=== PATIENT | female | born 1995 | race Caucasian/White ===

== ENCOUNTER → 2020-02-03 14:16 | Outpatient (BNVA) | payer OTHER, SELFPAY | PROVIDERS: Family Provider Family Medicine; Visit Provider Obstetrics & Gynecology | DX: Z32.01 Encounter for pregnancy test, result positive (principal) | CPT/HCPCS: 81025 ==

== ENCOUNTER → 2020-02-22 13:30 | Outpatient (BNVA) | payer OTHER, SELFPAY | PROVIDERS: Family Provider Family Medicine; Visit Provider Obstetrics & Gynecology | DX: Z12.4 Encounter for screening for malignant neoplasm of cervix (principal) | CPT/HCPCS: 88175 ==

== ENCOUNTER → 2020-05-02 11:55 | Outpatient (BNVA) | payer OTHER, SELFPAY | PROVIDERS: Family Provider Family Medicine; Visit Provider Obstetrics & Gynecology | DX: N97.9 Female infertility, unspecified (principal) | CPT/HCPCS: 84144 ==

== ENCOUNTER 2020-05-03 07:40 | Outpatient (CLI) | payer OTHER, SELFPAY ==
--- NOTE | 2020-05-03 07:53 | US_ITS ---
WS: [id number] RIGHT UPPER QUADRANT ULTRASOUND HISTORY: RUQ ABDOMINAL PAIN COMPARISON: 03/02/2017 Liver: 16.3 cm in length. Moderately enlarged liver. Diffuse coarsened echotexture throughout the mary er. No mass or bile duct dilatation. Gallbladder: Normally distended gallbladder with no stones or wall thickening. CBD: 0.3 cm Pancreas: Tail of the pancreas is obscured by bowel gas. Remaining pancreas is negative. Right kidney: 11.3 cm in length. Normal size and echogenicity. No hydronephrosis or mass. Aorta and IVC: Unremarkable abdominal aorta and IVC. No ascites. There is mild diffuse circumferential thickening and low echogenicity involving the antru m or duodenum. US/US gall bladder [id number] IMPRESSION: 1. Normal gallbladder. 2. Mild edematous thickening of the duodenum or antrum. Suggest mild gastritis /duodenitis. 3. Moderate hepatomegaly and hepatic steatosis. Hepatic findings have progress ed since 03/02/2017. Essentially normal appearing liver on 03/02/2017.
== END 2020-05-03 07:41 | disposition home or self-care (01) ==
LOC: RAD 07:49
PROVIDERS: PCP Family Medicine; Visit Provider Family Medicine
DX: R10.11 Right upper quadrant pain (principal); R16.0 Hepatomegaly, not elsewhere classified; K76.0 Fatty (change of) liver, not elsewhere classified
CPT/HCPCS: 76705

== ENCOUNTER → 2020-05-07 08:01 | Outpatient (BNVA) | payer OTHER, SELFPAY | PROVIDERS: PCP Family Medicine; Visit Provider Obstetrics & Gynecology | DX: N97.9 Female infertility, unspecified (principal) | CPT/HCPCS: 84144 ==

== ENCOUNTER → 2020-05-31 11:50 | Outpatient (BNVA) | payer OTHER, SELFPAY | PROVIDERS: PCP Family Medicine; Visit Provider Obstetrics & Gynecology | DX: N97.9 Female infertility, unspecified (principal) | CPT/HCPCS: 84144 ==

== ENCOUNTER → 2020-06-04 16:45 | Outpatient (BNVA) | payer OTHER, SELFPAY | PROVIDERS: PCP Family Medicine; Visit Provider Obstetrics & Gynecology | DX: Z31.9 Encounter for procreative management, unspecified (principal) | CPT/HCPCS: 84144 ==

== ENCOUNTER → 2020-07-30 13:33 | Outpatient (BNVA) | payer OTHER, SELFPAY | PROVIDERS: PCP Family Medicine; Visit Provider Obstetrics & Gynecology | DX: Z34.90 Encounter for supervision of normal pregnancy, unspecified, unspecified trimester | CPT/HCPCS: 84144; 84702 ==

== ENCOUNTER → 2020-09-03 15:07 | Outpatient (BNVA) | payer OTHER, SELFPAY | PROVIDERS: PCP Family Medicine; Visit Provider Obstetrics & Gynecology | DX: R79.89 Other specified abnormal findings of blood chemistry (principal) | CPT/HCPCS: 84144 ==

== ENCOUNTER → 2020-09-07 14:42 | Outpatient (BNVA) | payer OTHER, SELFPAY | PROVIDERS: PCP Family Medicine; Visit Provider Obstetrics & Gynecology | DX: R79.89 Other specified abnormal findings of blood chemistry (principal) | CPT/HCPCS: 84144 ==

== ENCOUNTER 2020-09-20 10:55 | Outpatient (CLI) | payer OTHER, SELFPAY ==
--- NOTE | 2020-09-20 11:00 | FL_ITS ---
WS: [id number] HYSTEROSALPINGOGRAM The cervical opening was cannulated by the jewelry mechanic. Then under fluoroscopic guidance, water-solu ble contrast was injected in a retrograde fashion. CLINICAL INFORMATION: R79.89 - Other specified abnormal findings of blood chemistry COMPARISON: None. FINDINGS: The uterus fills normally, with no evidence of contour abnormality, filling defect, septum, stricture , mass, or bicornuate configuration. The bilateral uterine tubes are normal and patent with normal ra pid spillage of contrast into the peritoneum. FLUOROSCOPY TIME: .2 minutes. FL/FL hysterosalpingography [id number] IMPRESSION: Normal hysterosalpingogram.
[2020-09-20] MEDS: iohexol 300 mg/mL 50 mL Btl VAGINAL (11:15)
--- NOTE | 2020-09-20 13:12 | PM.ACPR ---
Procedure/Consent Procedure Narrative: Radiologic procedure Date of procedure: 09/20/2020 Date of dictation: 09/20/2020 Procedural diagnosis: Infertility Procedure done: Placement of hysterosalpingogram catheter Physician: Dr. Mary Lou Apodaca Anesthesia: None Indication: To assess patency of fallopian tubes Complications: None, patient tolerated the procedure well PROCEDURE: The procedure was explained to the patient and verbal consent provided. Sterile speculum was placed in the vagina and the cervix was prepped with Betadine. The cervix was grasped with a single-tooth tenaculum. Using Omnipaque dye, the HSG catheter was primed. The catheter was inserted into the cervix and the speculum was removed. Fluoroscopy was performed by the radiologist. Omnipaque dye was injected into the endometrial cavity with normal filling of the cavity. Bilateral tubes appeared normal caliber with immediate spill of dye bilaterally. The tenaculum and catheter were removed. Patient tolerated the procedure well other than feeling a little lightheaded. Please see separate radiologist report for final interpretation. Followup appointment: She is to followup at her next scheduled appointment
== END 2020-09-20 10:56 | disposition home or self-care (01) ==
LOC: RAD 10:59
PROVIDERS: PCP Family Medicine; Visit Provider Obstetrics & Gynecology
DX: R79.89 Other specified abnormal findings of blood chemistry (principal)
CPT/HCPCS: 74740

== ENCOUNTER → 2020-10-02 13:00 | Outpatient (BNVA) | payer OTHER, SELFPAY | PROVIDERS: PCP Family Medicine; Visit Provider Obstetrics & Gynecology | DX: R79.89 Other specified abnormal findings of blood chemistry (principal) | CPT/HCPCS: 84144 ==

== ENCOUNTER → 2020-11-01 13:07 | Outpatient (BNVA) | payer OTHER, SELFPAY | PROVIDERS: PCP Family Medicine; Visit Provider Obstetrics & Gynecology | DX: N97.0 Female infertility associated with anovulation (principal) | CPT/HCPCS: 83520; 84144 ==

== ENCOUNTER → 2020-11-12 11:42 | Outpatient (BNVA) | payer OTHER, SELFPAY | PROVIDERS: PCP Family Medicine; Visit Provider Obstetrics & Gynecology | DX: Z32.01 Encounter for pregnancy test, result positive (principal); R79.89 Other specified abnormal findings of blood chemistry | CPT/HCPCS: 84702 ==

== ENCOUNTER → 2020-11-19 12:00 | Outpatient (BNVA) | payer OTHER, SELFPAY | PROVIDERS: PCP Family Medicine; Visit Provider Obstetrics & Gynecology | DX: Z34.90 Encounter for supervision of normal pregnancy, unspecified, unspecified trimester (principal) | CPT/HCPCS: 84702 ==

== ENCOUNTER 2020-12-06 09:27 | Outpatient (CLI) | payer OTHER, SELFPAY ==
--- NOTE | 2020-12-06 09:49 | US_ITS ---
WS: [id number] EARLY OBSTETRICAL ULTRASOUND (<14 WEEKS). HISTORY: NORMAL COMPARISON: None available. Single intrauterine gestational sac is identified. Cardiac activity at 164 BPM. Kimmell-rump length critsobal sures 1.4 cm which corresponds to a gestation of 7w4d. Normal-appearing yolk sac and amnion demonstra juma. No subchorionic hemorrhage. There is a small amount of free fluid in the cul-de-sac. The cervix is closed measuring 3.4 cm in [facility]. Corpus luteum cyst RIGHT ovary measures 2.3 x 2.0 x 2.3 cm. Normal vascularity within the ovary. LEFT ovary is not identified. US/US OB <=14 wk fetus w transvag IMPRESSION: 1. Single intrauterine gestation of 7 weeks 4 days with an EDC of 07/21/2021. 2. Normal cardiac activity. 3. RIGHT ovarian corpus luteum cyst.
== END 2020-12-06 09:28 | disposition home or self-care (01) ==
LOC: RAD 09:34
PROVIDERS: PCP Family Medicine; Visit Provider Family Medicine
DX: N83.11 Corpus luteum cyst of right ovary (principal); Z34.81 Encounter for supervision of other normal pregnancy, first trimester; Z3A.01 Less than 8 weeks gestation of pregnancy
CPT/HCPCS: 76801; 76817

== ENCOUNTER 2021-03-12 07:46 | Outpatient (CLI) | payer OTHER, SELFPAY ==
--- NOTE | 2021-03-12 07:56 | US_ITS ---
WS: [id number] OBSTETRICAL ULTRASOUND COMPLETE HISTORY: ANATOMY COMPARISON: 12/06/2020 Single intrauterine gestation in Cephalic presentation. Cervix is Closed and normal length. Cervical length is 4.7 cm. Normal amount of amniotic fluid surrounds the fetus. Placenta: Anterior, no previa or abruption. Placenta grade 1 Heart: 136 BPM. Limited four-chamber view. Outflow tracts are difficult due to body habitus and posit ion of the fetus. No abnormality noted. Anatomy: Intracranial structures and spine are normal. kidneys, stomach and urinary bladd er are unremarkable. Abdominal wall, three-vessel cord and cord insertion site are normal. 4 extremities are present. profile: Unremarkable. Gender: Female. measurements: BPD = 4.9 cm = 20w6d HC = 19.1 cm = 21w2d AC = 16.5 cm = 21w4d FL = 3.7 cm = 21w6d EFW: 440 g. Biometry is internally concordant. AGA by ultrasound: 21w3d JASON by ultrasound: 07/20/2021 US/US OB >= 14 weeks fetus [id number] IMPRESSION: 1. Single intrauterine gestation of 21w3d with an JASON of 07/20/2021. Appropria te growth since the prior ultrasound. 2. Limited evaluation of the heart and outflow tracts due to maternal mikaela dy habitus and position. The remaining anatomy is negative.
== END 2021-03-12 07:47 | disposition home or self-care (01) ==
PROVIDERS: PCP Family Medicine; Visit Provider Family Medicine
DX: Z36.89 Encounter for other specified antenatal screening (principal); Z3A.21 21 weeks gestation of pregnancy
CPT/HCPCS: 76805

== ENCOUNTER 2021-04-13 11:21 | Outpatient (CLI) | payer OTHER, SELFPAY ==
--- NOTE | 2021-04-13 | USR_ITS ---
PROCEDURE INFORMATION: Exam: US , Limited Exam date and time: 04/13/2021 12:00 AM Age: 26 years old Clinical indication: Screening exam; Routine US, uterus; Additional info: heart outflow tract TECHNIQUE: Imaging protocol: Real-time ultrasound of the maternal uterus with image documentation. Exam focused on the clinical indication. COMPARISON: US OB >= 14 weeks fetus [id number] 03/12/2021 8:17 AM FINDINGS: Gestation: Intrauterine gestation in cephalic presentation. heart rate: heart rate 150 bpm. ANATOMY: heart four-chamber view, heart size and position: Four-chamber views of the heart are suboptimal. Both the right ventricular outflow tract and the left ventricular outflow tract are displayed and appear normal. This was ordered as limited exam and detailed anatomic survey was not performed. MATERNAL: Cervix: Maternal cervix measures 4.7 cm in length and is closed. US/US OB limited [id number] IMPRESSION: Normal appearance of the right and left ventricular outflow tracts.
== END 2021-04-13 11:22 | disposition home or self-care (01) ==
PROVIDERS: PCP Family Medicine; Visit Provider Family Medicine
DX: Z34.00 Encounter for supervision of normal first pregnancy, unspecified trimester (principal)
CPT/HCPCS: 76815

== ENCOUNTER 2021-07-01 08:07 | Outpatient (CLI) | payer OTHER, SELFPAY ==
--- NOTE | 2021-07-01 08:15 | US_ITS ---
WS: [id number] LIMITED OBSTETRICAL ULTRASOUND HISTORY: SUPERVISION-EFW/BLANCA COMPARISON: 04/13/2021, 12/06/2020 Presentation: Vertex. Cervix: Not visualized. Placenta: Anterior, no previa or abruption. Grade: 1 HEART: FHR of 136 BPM. measurements: BPD = 9.3 cm = 37w4d HC = 32.8 cm = 37w1d AC = 36.0 cm = 39w6d FL = 7.3 cm = 37w1d BLANCA: 14.2 cm EFW: 3567 g; greater than the 90th %. AGA by ultrasound: 38w0d JASON by ultrasound: 07/15/2021 US/US OB limited [id number] IMPRESSION: 1. Single intrauterine gestation of 38 weeks 0 days with an EDC of 07/15/2021. Appropriate growth since the first trimester ultrasound. 2. Estimated weight greater than 90th percentile for age. 3. Abdominal circumference measuring nearly 3 weeks greater than the remaining biometry. 4. Normal amniotic fluid index of 14.2 cm.
== END 2021-07-01 08:08 | disposition home or self-care (01) ==
LOC: RAD 08:11
PROVIDERS: PCP Family Medicine; Visit Provider Family Medicine
DX: Z34.83 Encounter for supervision of other normal pregnancy, third trimester; Z3A.38 38 weeks gestation of pregnancy
CPT/HCPCS: 76815

== ENCOUNTER 2021-07-01 08:45 | Outpatient (CLI) | payer OTHER, SELFPAY ==
[2021-07-01 09:08] VITALS: BP 117/66; PULSE 80
[2021-07-01 09:12] VITALS: RESP 17; TEMP 36.8
[2021-07-01 09:29] VITALS: BP 117/71; PULSE 80
== END 2021-07-01 09:50 | disposition home or self-care (01) ==
LOC: OPOB 08:55 → OBGYN 08:57
PROVIDERS: PCP Family Medicine; Visit Provider Family Medicine
DX: O16.9 Unspecified maternal hypertension, unspecified trimester (principal)
CPT/HCPCS: 59025; 99211

== ENCOUNTER 2021-07-04 12:24 | Outpatient (CLI) | payer OTHER, SELFPAY ==
[2021-07-04 12:24] VITALS: BMI 41.6
[2021-07-04 12:31] VITALS: RESP 16
[2021-07-04 12:32] VITALS: TEMP 36.1
[2021-07-04 12:33] VITALS: BP 136/79; PULSE 75
[2021-07-04 12:49] VITALS: BP 133/77; PULSE 73
== END 2021-07-04 13:00 | disposition home or self-care (01) ==
LOC: OPOB 12:29 → OBGYN 12:30
PROVIDERS: PCP Family Medicine; Visit Provider Family Medicine
DX: O16.9 Unspecified maternal hypertension, unspecified trimester (principal)
CPT/HCPCS: 59025

== ENCOUNTER 2021-07-08 11:25 | Outpatient (CLI) | payer OTHER, SELFPAY ==
--- NOTE | 2021-07-08 11:36 | US_ITS ---
WS: [id number] ULTRASOUND OB LIMITED TECHNIQUE: Limited ultrasound examination of the fetus. CLINICAL INFORMATION: SUPERVISION NORMAL COMPARISON: July 01, 2021 FINDINGS: Closed cervix measures 3.1 cm Single interuterine gestation. presentation is vertex Placental location is anterior. Placenta grade: 0. heart rate 153 BPM. BLANCA 11.8 cm US/[place] [id number] IMPRESSION: 1. Normal cervix measuring 3.1 cm. 2. presentation is vertex with anterior placenta. 3. BLANCA 11.8 cm greater than the fifth and less than the median
== END 2021-07-08 11:26 | disposition home or self-care (01) ==
LOC: RAD 11:27
PROVIDERS: PCP Family Medicine; Visit Provider Family Medicine
DX: Z34.00 Encounter for supervision of normal first pregnancy, unspecified trimester (principal)
CPT/HCPCS: 76816

== ENCOUNTER 2021-07-08 12:40 | Outpatient (CLI) | payer OTHER, SELFPAY ==
[2021-07-08] VITALS (8 sets, daily range): BP systolic 124–137; BP diastolic 60–84; PULSE 73–99; RESP 17; BMI 41.8
== END 2021-07-08 13:55 | disposition home or self-care (01) ==
LOC: OPOB 12:43 → OBGYN 12:43
PROVIDERS: PCP Family Medicine; Visit Provider Family Medicine
DX: O16.9 Unspecified maternal hypertension, unspecified trimester (principal)
CPT/HCPCS: 59025

== ENCOUNTER 2021-07-12 19:03 | Inpatient (IN) | payer OTHER, SELFPAY ==
[2021-07-12] VITALS (28 sets, daily range): BP systolic 124–176; BP diastolic 64–90; PULSE 66–103; RESP 16; O2SAT 96–99; BMI 41.6
--- NOTE | 2021-07-12 20:01 | P.HP_ITS ---
Providers/Chief Complaint Primary Care Provider: Mark Lozano MD Chief Complaint: INDUCTION OF LABOR History of Present Illness Eileen Bedolla is a 26 year old at 39.0 weeks gestation by LMP consistent with 7-week ultrasound. Her is complicated by obesity, difficulty becoming on Clomid for induction of ovulation, IBS, syncopal episode at 9 weeks gestation, chronic hypertension on labetalol 50 mg twice a day, elevated 1 hour GTT with normal 3-hour GTT. The patient presents to labor and delivery for a scheduled induction of labor at 39 weeks gestation secondary to chronic hypertension. The patient has been having blood pressures in the 130s to 150s and for this reason she has been brought in for induction of labor. The patient denies any headaches, chest pains, shortness of breath, nausea, flashes of light, abdominal pain, diarrhea, constipation, fevers, dysuria, leakage of fluid, vaginal bleeding. Her Covid test was negative on 07/09/2021. Medications/Allergies Home Medications Medication Instructions Recorded Confirmed Last Taken Type Bacillus coagulans 800 million cell PO 02/03/20 10/16/20 Unknown History cell tablet cetirizine 10 mg capsule 10 mg PO DAILY PRN 02/22/20 10/16/20 Unknown History Allergies Allergy/AdvReac Type Severity Reaction Status Date / Time No Known Allergies Allergy Verified 11/19/20 12:07 PFSH Acute PFSH: Medical History Anxiety Takes hydroxyzine as needed. Managed by primary care provider Dr. Lozano. H/O cardiac arrhythmia Reports having PVCs and during this time had elevated blood pressure and was placed on metoprolol. This was being managed by primary care provider at that time Dr. Romero. She states that since 2017 in 2018 since anxiety and stress improved she has not had these symptoms. She is asymptomatic at this time Irritable bowel Diagnosed in 2015 with a colonoscopy--anxiety and stress make it worse. She is on probiotics for this. Started desipramine by her primary care provider in May 2020 as well No pertinent past medical history Denies diabetes, asthma, hypertension, seizures, DVT/PE PCP: Dr. Lozano Surgical History S/P appendectomy 2011--laparoscopic procedure S/P tonsillectomy and adenoidectomy As a child Family History Family/Other Colon cancer maternal great grandmother Mother Thyroid condition Heart disease Diabetes Grandmother Heart disease maternal and paternal Diabetes paternal Grandfather Diabetes maternal Denies family history of Ovarian cancer Hyperlipidemia Breast cancer Hypertension Uterine cancer Stroke Social History Smoking and tobacco status: never smoked Alcohol intake: never Female Reproductive History: : 1 Vitals/I&O/Wt Last Vital Signs Pulse 87 07/12/21 19:58 Resp 16 07/12/21 19:52 BP 154/81 07/12/21 19:37 Pulse Ox 98 07/12/21 19:58 Weight last 48 hrs Weight 274 lb Physical Exam Narrative: EXAM NARRATIVE: General: Alert and oriented x3 Eyes: Pupils equal round and reactive to light and accommodation Mouth: Mucous membranes moist, pharynx non-erythematous Cardiac: Regular rate and rhythm without murmurs Lungs: Clear to auscultation bilaterally without wheezes, crackles or rhonchi Abdomen: Soft, non-tender, fundus consistent with gestational age Extremities: +1 pitting edema in the bilateral lower extremities A&P Assessment and plan (1) Intrauterine : Status: Acute (2) Chronic hypertension: Status: Acute (3) Obesity: Status: Acute Additional A&P Information The patient is doing well at this time. Her blood pressures are in the 150s. She did not take her evening dose of labetalol. We will give her a 50 mg dose by mouth to help control her blood pressures. We will continue with the antihypertensive protocol. We will get preeclamptic labs as well as a 12-hour urine protein. Currently heart tones are in the mid 140s with moderate variability and good accelerations with a category 1 tracing. The patient is not having any significant contractions. We will start the patient on Cytotec and proceed from there. She may have a laboring epidural when she gets to 3 cm if desired. Stadol for pain control prior to this. The patient is GBS negative. All questions were answered. The patient and her are in agreement with the current plan of care. Attestations Medical Necessity Statement*: The patient will be here for greater than 2 midnights due to routine intrapartum and management of labor and delivery. Coding Level of Care Code Acute Student Teaching Coordinator for Chg Fwd Diagnoses Intrauterine Z34.90 Chronic hypertension I10 Obesity E66.9
[2021-07-12 20:34] LABS: Add Urine Microscopic? NO; Charge for UA Resulting for Rev
[2021-07-12 20:41] LABS: Basophils % 0.4 %; Eosinophils # 0.1 10^3/uL (0.0-0.8); Eosinophils % 1.2 %; Hematocrit 32.4 % (37.0-47.0); Hemoglobin 11.1 g/dL (11.5-15.3); Lymphocytes # 2.9 10^3/uL (0.8-4.8); Lymphocytes % 29.4 %; Mean Corpuscular HGB Conc 34.3 g/dL (30.0-36.0); Mean Corpuscular Hemoglobin 29.7 pg (28.0-34.0); Mean Corpuscular Volume 86.6 fl (81-99); Mean Platelet Volume 10.5 fL (7.4-10.4); Monocytes # 0.8 10^3/uL (0.2-0.9); Monocytes % 8.3 %; Neutrophils # 5.82 10^3/uL (1.8-7.7); Neutrophils % 59.6 %; Nucleated Red Blood Cells % 0 %; Platelet Count 296 10^3/cmm (130-400); Red Blood Count 3.74 10^6/uL (4.1-5.3); Red Cell Distribution Width 13.4 % (12.1-15.1); White Blood Count 9.8 10^3/uL (4.0-10.0)
[2021-07-12] MEDS: labetalol 200 mg Tablet 50 MG PO (20:44)
[2021-07-12 20:50] LABS: Bilirubin Urine Neg (Negative); Blood Urine Neg (Negative); Glucose Urine UA Norm (Normal); Ketones Urine Negative (Negative); Leukocyte Esterase Urine Negative (Negative); Nitrate Urine Negative (Negative); Protein Urine Neg (Negative); Urine Appearance Clear (CLEAR); Urine Color Yellow (Yellow); Urobilinogen Urine Norm (Negative); pH Urine 7 (5-7)
[2021-07-12 21:03] LABS: Alanine Aminotransferase 12 U/L (0-33); Albumin Level 3.5 g/dL (3.5-5.2); Alkaline Phosphatase 118 IU/L (35-105); Anion Gap 19.7 (5-19); Aspartate Amino Transferase 15 U/L (0-32); Blood Urea Nitrogen 8 mg/dL (6-20); Calcium 8.7 mg/dL (8.5-10.5); Carbon Dioxide 16 mmol/L (22-29); Chloride 105 mmol/L (98-107); Globulin 2.8 g/dL (1.3-4.6); Glomerular Filtration Rate 102.8 mL/min (90-130); Glucose 126 mg/dL (65-115); Osmolality Calculated 284 mOsm/kg (285-295); Potassium 3.7 mmol/L (3.5-5.1); Sodium 137 mmol/L (136-145); Total Bilirubin 0.2 mg/dL (0.15-1.2); Total Protein 6.3 g/dL (6.6-8.7); Uric Acid 4.6 mg/dL (2.4-5.7)
[2021-07-12 21:10] LABS: UPRO/UCREAT Ratio 0.11 mg/mg CR; Urine Creatinine 66 mg/dL (28-217); Urine Protein Random 7 mg/dL
[2021-07-12] MEDS: miSOPROStol 100 mcg tablet 25 MCG VAGINAL (21:17)
[2021-07-12] MEDS: labetalol 5 mg/mL SDV 20mL 20 MG IVP (21:42)
[2021-07-13] VITALS (101 sets, daily range): BP systolic 113–181; BP diastolic 56–98; PULSE 59–118; RESP 18; TEMP 36.1–37.3; O2SAT 96–99
[2021-07-13] MEDS: miSOPROStol 100 mcg tablet 25 MCG VAGINAL ×2 (01:20→05:30)
[2021-07-13] MEDS: dextrose 5%-lactated ringers 1,000 ML 125 ML IV (04:56)
[2021-07-13 09:18] LABS: Total Volume, Urine 1000 mL
[2021-07-13] MEDS: oxytocin 30 UNIT/500 ML BAG IV (10:13)
--- NOTE | 2021-07-13 10:17 | P.PN_ITS ---
Subjective Subjective: Interval history: The patient is feeling well today. She is having some pain with contractions, however is able to talk through them. The patient has been having contractions every 2 to 5 minutes. Her cervix is dilated to 2 cm and 50% effaced. Blood pressures overnight were relatively well controlled with a few sporadic elevated blood pressures. She denies any chest pains or shortness of breath overnight. Vitals/I&O/Wt Last Vital Signs Temp 97.0 F L 07/13/21 08:32 Pulse 91 07/13/21 10:13 Resp 16 07/12/21 19:52 BP 148/88 07/13/21 10:13 Pulse Ox 98 07/12/21 20:03 07/12/21 07/13/21 07/13/21 22:59 06:59 14:59 Intake Total 320.833 / 320.833 Output Total 800 / 800 475 / 475 Balance -800 / -800 -154.167 / -154.167 Weight last 48 hrs Weight 274 lb Physical Exam Narrative: EXAM NARRATIVE: General: Alert and oriented x3 Cardiac: Regular rate and rhythm without murmurs Lungs: Clear to auscultation bilaterally without wheezes, crackles or rhonchi Abdomen: Soft, non-tender, fundus consistent with gestational age Extremities: +1 pitting edema in the bilateral lower extremities Data : 07/12/21 19:45 07/12/21 19:45 A&P Assessment and plan (1) Intrauterine : Status: Acute (2) Chronic hypertension: Status: Acute (3) Obesity: Status: Acute (4) Anxiety: Status: Acute Additional A&P Information The patient is doing well at this time. We will proceed with IV Pitocin for augmentation of labor. 24-hour urine protein levels are below range for preeclampsia. heart tones are in the mid 140s with moderate variability and good accelerations with a category 1 tracing. All questions were answered. The patient may have a laboring epidural when she gets to 3 to 4 cm. The patient and her are in agreement with current plan of care. Attestations Medical Necessity Statement*: The patient will be here for greater than 2 midnights due to routine intrapartum and management of labor and delivery. Coding Level of Care Code Acute Stretcher Leveler Operator Helper for Belgica Rahman Diagnoses Intrauterine Z34.90 Chronic hypertension I10 Obesity E66.9 Anxiety F41.9
[2021-07-13] MEDS: lactated ringers 1,000 ML 125 ML IV ×2 (12:24→15:00)
[2021-07-13] MEDS: butorphanol 2 mg/mL SDV 1 mL 1 MG IVP ×2 (12:41→23:51)
[2021-07-13] MEDS: labetalol 5 mg/mL SDV 20mL 20 MG IVP ×2 (13:32→14:44)
--- NOTE | 2021-07-13 15:00 | P.ANESASSM_ITS ---
Pre-Anesthetic Assessment Pre-Anesthetic Assessment: Height/Weight: Height 5 ft 8 in Weight 124.284 kg Temp Pulse Resp BP Pulse Ox 97.2 F L 63 16 131/71 98 07/13/21 12:06 07/13/21 15:25 07/12/21 19:52 07/13/21 15:18 07/13/21 15:25 Preop Diagnosis: IUP Was Beta Marysol taken within 24 hours: Yes Was Clonidine taken within 24 hours: N/A Social: Social History: No alcohol and No tobacco Exam: Pre-Anes Outpt Exam: alert, oriented x 3, clear to auscultation bilaterally and regular rate & rhythm Airway: Submandibular: WNL Cervical ROM: WNL MP: 1 History/ROS: No significant history except as noted Pulmonary: Pulmonary: None reported CV/HEM: CV/HEM: HTN : : None reported Hepatic: Hepatic: None reported GI: GI: None reported Metabolic: Metabolic: Morbid obesity Musc/skel: Musc/skel: None reported Neuropsych: Neuropsych: Anxiety Anesthetic Plan: ASA status: 2 Anesthesia: Anesthesia Evaluation Risk of > 500 ml blood loss (7ml/kg in children): No Meds/Allergies Current Medications: Current Medications Generic Name Dose Route Start Last Admin Trade Name Freq PRN Reason Stop Dose Admin Butorphanol Tartra te 1 mg 07/12/21 19:47 07/13/21 12:41 Butorphanol 2 Mg /Ml Sdv 1 Ml IVP 1 mg Q2H PRN Administration SEVERE PAIN Dextrose/Lactated Ringer's 1,000 mls @ 125 m ls/hr 07/12/21 19:47 07/13/21 12:24 Dextrose 5%-Lact ated Ringers IV Infused .Q8H PRN Infusion per label comment s Lactated Ringer's 1,000 mls @ 999 m ls/hr 07/12/21 19:52 07/13/21 15:00 Lactated Ringers IV 125 mls/hr .Q1H1M PRN Administration BLEEDING Oxytocin 30 unit in 500 ml s @ 1 mls/hr 07/13/21 10:00 07/13/21 12:39 Pitocin IV 9 milliunit/min .Q24H PHYLICIA 9 mls/hr Titration Protocol 1 MILLIUNIT/MIN Ropivacaine 200 mg in 100 mls @ 13 mls/hr 07/13/21 14:30 07/13/21 15:14 Naropin Premix EPIDURAL 13 mls/hr .Q7H42M PHYLICIA Administration Labetalol HCl 20 mg 07/12/21 19:47 07/13/21 14:44 Labetalol 5 Mg/M l Sdv 20ml IVP 20 mg PRN PRN Administration HYPERTENSION Protocol Ondansetron HCl 4 mg 07/12/21 19:47 07/13/21 15:03 Ondansetron 2 Mg /Ml Sdv 2 Ml IVP 4 mg Q4H PRN Administration NAUSEA AND VOMITI NG PFSH Anesthesia PFSH: Medical History Anxiety Takes hydroxyzine as needed. Managed by primary care provider Dr. Lozano. H/O cardiac arrhythmia Reports having PVCs and during this time had elevated blood pressure and was placed on metoprolol. This was being managed by primary care provider at that time Dr. Romero. She states that since 2017 in 2018 since anxiety and stress improved she has not had these symptoms. She is asymptomatic at this time Irritable bowel Diagnosed in 2015 with a colonoscopy--anxiety and stress make it worse. She is on probiotics for this. Started desipramine by her primary care provider in May 2020 as well No pertinent past medical history Denies diabetes, asthma, hypertension, seizures, DVT/PE PCP: Dr. Lozano Surgical History S/P appendectomy 2011--laparoscopic procedure S/P tonsillectomy and adenoidectomy As a child Family History Family/Other Colon cancer maternal great grandmother Mother Thyroid condition Heart disease Diabetes Grandmother Heart disease maternal and paternal Diabetes paternal Grandfather Diabetes maternal Denies family history of Ovarian cancer Hyperlipidemia Breast cancer Hypertension Uterine cancer Stroke Social History Smoking and tobacco status: never smoked Alcohol intake: never Female Reproductive History: : 1 Data Anesthesia CBC & Chem 7: 07/12/21 19:45 07/12/21 19:45 Other Labs: Laboratory Results - last 48 hr 07/12/21 07/12/21 07/12/21 19:45 19:45 19:45 WBC RBC Hgb Hct MCV MCH MCHC RDW Plt Count MPV Neut % (Auto) Lymph % (Auto) [place] % (Auto) Eos % (Auto) Baso % (Auto) Neut # (Auto) Lymph # (Auto) [place] # (Auto) Eos # (Auto) Baso # (Auto) Nucleated RBC % (auto) Nucleated RBCs # Sodium 137 Potassium 3.7 Chloride 105 Carbon Dioxide 16 L Anion Gap 19.7 H BUN 8 Creatinine 0.7 GFR Calculation 102.8 Glucose 126 H Calculated Osmolality 284 L Uric Acid 4.6 Calcium 8.7 Total Bilirubin 0.2 AST 15 ALT 12 Alkaline Phosphatase 118 H Total Protein 6.3 L Albumin 3.5 Globulin 2.8 Urine Color Yellow Urine Appearance Clear Urine pH 7 Ur Specific [place] 1.010 Urine Protein Neg Urine Glucose (UA) Norm Urine Ketones Negative Urine Blood Neg Urine Nitrate Negative Urine Bilirubin Neg Urine Urobilinogen Norm Ur Leukocyte Esterase Negative U Random Total Protein 7 Urine Total Volume Urine Creatinine 66 Ur Total Protein 24 Hr Protein/Creatinin Ratio 0.11 Urine Total Protein 07/12/21 07/13/21 19:45 08:40 WBC 9.8 RBC 3.74 L Hgb 11.1 L Hct 32.4 L MCV 86.6 MCH 29.7 MCHC 34.3 RDW 13.4 Plt Count 296 MPV 10.5 H Neut % (Auto) 59.6 Lymph % (Auto) 29.4 [place] % (Auto) 8.3 Eos % (Auto) 1.2 Baso % (Auto) 0.4 Neut # (Auto) 5.82 Lymph # (Auto) 2.9 [place] # (Auto) 0.8 Eos # (Auto) 0.1 Baso # (Auto) 0.0 Nucleated RBC % (auto) 0 Nucleated RBCs # 0.0 Sodium Potassium Chloride Carbon Dioxide Anion Gap BUN Creatinine GFR Calculation Glucose Calculated Osmolality Uric Acid Calcium Total Bilirubin AST ALT Alkaline Phosphatase Total Protein Albumin Globulin Urine Color Urine Appearance Urine pH Ur Specific [place] Urine Protein Urine Glucose (UA) Urine Ketones Urine Blood Urine Nitrate Urine Bilirubin Urine Urobilinogen Ur Leukocyte Esterase U Random Total Protein Urine Total Volume 1000 Urine Creatinine Ur Total Protein 24 Hr 110.0 Protein/Creatinin Ratio Urine Total Protein 11.0 Cardiac Studies: No Data to Display
[2021-07-13] MEDS: ondansetron 2 mg/ML SDV 2 mL 4 MG IVP ×2 (15:03→21:03)
--- NOTE | 2021-07-13 15:29 | ANES.PROC ---
Anesthesia Procedures Procedure/Date: 07/13/21 Epidural: Time Out Performed: Yes Consents Signed: Procedure Consent Consent: requested by attending/covering physician Lumbar Level: L3-L4 Epidural position: sitting Epidural procedure: sterile prep of area, 1% lidocaine to numb the area, 18 g needle, negative for paresthesia passed, neg for paresthesia, test dose given, 1.5% xylocaine 1:200k epi (5ml), placed PCEA, no systemic response, sterile dressing applied, L.U.D. no apparent complications and 0.2% Ropiavacaine @ mls/hr (13)
[2021-07-13] MEDS: lactated ringers 1,000 ML 999 ML IV (17:59)
[2021-07-13] MEDS: alum-mag-hydroxide-sime 30 mL UDC PO (19:56)
[2021-07-13] MEDS: hyDROXYzine 25 mg Capsule 50 MG PO (21:47)
--- NOTE | 2021-07-13 22:54 | ANES.PROC ---
Anesthesia Procedures Procedure/Date: 07/13/21 Procedure Narrative: Called to OB by RN, laboring patient c/o painful contractions hours after epidural easily placed by myself. dressing clean/dry/intact and PCEA tubing connected appropriately and dosing still set at 13ml/hr. bolused PF lidocaine 2% 8cc and Fentanyl 100mcg per epidural.
[2021-07-14] VITALS (62 sets, daily range): BP systolic 100–180; BP diastolic 49–110; PULSE 61–122; RESP 16–18; TEMP 36.1–37.2; O2SAT 90–99
--- NOTE | 2021-07-14 00:50 | P.ANES_ITS ---
Anesthesia Procedures Procedure/Date: 07/14/21 Epidural: Time Out Performed: Yes Consents Signed: Procedure Consent Consent: patient agrees to proceed Lumbar Level: L3-L4 Epidural position: sitting Epidural procedure: sterile prep of area, 1% lidocaine to numb the area, 18 g needle, negative for paresthesia passed, neg for paresthesia, test d ose given, 1.5% xylocaine 1:200k epi (5ml), placed PCEA, no systemic response, sterile dressing applied, L.U.D. no apparent complications and 0.2% Ropiavacaine @ mls/hr (13) Additional Comments: first epidural pulled, catheter intact. replaced epidural one space above without complications. Fentanyl 100mcg
[2021-07-14] MEDS: lactated ringers 1,000 ML 999 ML IV ×2 (03:48→06:44)
--- NOTE | 2021-07-14 06:23 | PM.MISC ---
Miscellaneous Note Purpose of Documentation: The patient had some late decelerations that were recurrent and had her IV Pitocin turned off on the evening of 07/13/2021. She was 5 cm at that time. The late decelerations improved, and throughout the night we have gradually increase the Pitocin back. The patient was not making adequate change and we discussed going for versus getting an IUPC placed. We decided to place an IUPC and the [place] units were adequate in the 200-220 range. The Pitocin was able to be increased gradually from there again and the Eak[place] units continued above 200 units. The patient made small change from 5.5 to 6 cm over the course of 2 hours but the outlet is quite small and I am concerned that with her labor curve that she would be at increased risk for shoulder dystocia or fourth degree laceration. The patient has also been having significant lower back pain that is breaking through her epidural. I worry that this could be related to a complication with her uterus. With these risks present and the patient still making very minimal change, I feel that it is best to proceed with a primary low transverse section secondary to arrest of dilation with likely cephalopelvic disproportion. I discussed the concerns with the patient and her . They are in agreement with proceeding with section at this time.
[2021-07-14] MEDS: famotidine 20 mg/2 mL INJ IVP (06:43)
[2021-07-14] MEDS: metoclopramide 5 mg/mL SDV 2 mL 10 MG IVP (06:43)
[2021-07-14] MEDS: citric acid-sodium citrate 30 mL UDC PO (06:43)
--- NOTE | 2021-07-14 09:00 | P.OP_ITS ---
Operative Report Date of procedure: July 14, 2021 Pre-op Diagnosis: IUP Pre-op Diagnosis: 1. Intrauterine at 39.2 weeks gestation 2. Obesity 3. Chronic hypertension on labetalol 4. Elevated 1 hour GTT with normal 3-hour GTT 5. Arrest of dilation 6. General anesthesia secondary to inadequate spinal block. Post-op Diagnosis: 1. Intrauterine status post primary low transverse section at 39.2 weeks gestation 2. Obesity 3. Chronic hypertension on labetalol 4. Elevated 1 hour GTT with normal 3-hour GTT 5. Arrest of dilation 6. Delivery of infant female weighing 8 pounds 9 ounces with APGARs of 2, 6 and 9 Post-op Findings: Small internal pelvic outlet consistent with cephalo-pelvic disproportion Procedure Done: Primary low transverse section Specimens removed/disposition: Placenta discarded Pathology: none sent Surgeon: Mark Lozano Anesthesia: General and Other (Spinal) Estimated blood loss (mL): 500 Complications: None Findings: The infant was in normal vertex position with molding, however had made no significant descent into the pelvis consistent with cephalopelvic disproportion. Condition: stable Disposition: floor Procedure: After informed consent was obtained, the patient was taken to the operating room and the patient was prepped and draped in a normal sterile fashion in the dorsal supine position. A spinal epidural was placed and adequate anesthesia was not obtained, so general anesthesia was given. At 7:22 AM on 07/14/2021, a Pfannenstiel skin incision was made and carried through to the underlying layer of fascia using a scalpel. The fascial incision was then extended laterally using curved Mayos. The fascia was then grasped with Willis clamps and the underlying rectus muscles were dissected off taking care to avoid injury to the underlying tissues. The peritoneum was entered bluntly with one digit. It was then bluntly. The bladder blade was placed and the vesicouterine peritoneum was well below the lower uterine segment of the uterus. The uterine incision was made in the lower uterine segment in a transverse fashion with the scalpel at 7:28 AM. The amniotic membrane was entered bluntly and a moderate amount of meconium stained fluid was noted. The infant's head delivered atraumatically without difficulty at 7:28 AM. There was no nuchal cord. The mouth and nose were suctioned. The rest of the infant delivered without difficulty. The was crying immediately upon delivery. The cord was clamped and cut and the was handed to the awaiting pediatric nurses. The placenta was then manually expressed. The uterus was then exteriorized from the abdomen and a wet lap was used to clear the uterus of clots and debris. The bladder blade was reinserted and the uterine incision was closed using 0 chromic in a running locking fashion. A second layer of the same suture was used in the same manner. Excellent hemostasis was obtained. Next the posterior cul-de-sac was inspected and was cleared of any blood. The uterus was then placed back into the abdomen. The gutters were cleared of any further clots and debris and the uterine incision was again inspected and hemostasis was noted. The subfascial tissue was inspected for hemostasis and the peritoneum was re-approximated using 2-0 plain in a running fashion. The fascia was then re-approximated using 0 Vicryl in a running fashion. The subcutaneous tissue was inspected for hemostasis. Shaun's fascia was then re- approximated using 3-0 plain in a running fashion. Good hemostasis was noted. The subcutaneous tissue was then re-approximated using a subcuticular stitch. The patient tolerated the procedure well and was recovered in stable condition. Estimated blood loss was 500 mL. Urine in the Shelley catheter was clear. The patient was taken to recovery in good condition.
[2021-07-14] MEDS: morphine 4 mg/mL SDV 1 mL IVP (12:17)
[2021-07-14] MEDS: ketorolac 30 mg/mL INJ IVP ×2 (14:07→20:55)
[2021-07-14] MEDS: dextrose 5%-lactated ringers 1,000 ML 125 ML IV (15:32)
[2021-07-14] MEDS: clindamycin 900 MG/50 ML PREMIX 100 MG IV ×2 (16:17→23:28)
[2021-07-14] MEDS: docusate sodium 100 mg Capsule PO (19:20)
[2021-07-14] MEDS: ferrous sulfate EC 325 mg Tablet PO (19:20)
--- NOTE | 2021-07-14 19:30 | PC.NURSE ---
Patient ambulated 2 laps around unit. Tolerated well.
[2021-07-14 21:19] LABS: Hematocrit 28.5 % (37.0-47.0); Hemoglobin 9.8 g/dL (11.5-15.3); Mean Corpuscular HGB Conc 34.4 g/dL (30.0-36.0); Mean Corpuscular Volume 87.2 fl (81-99); Mean Platelet Volume 10.2 fL (7.4-10.4); Platelet Count 259 10^3/cmm (130-400); Red Blood Count 3.27 10^6/uL (4.1-5.3); Red Cell Distribution Width 13.3 % (12.1-15.1); White Blood Count 17.2 10^3/uL (4.0-10.0)
[2021-07-14] MEDS: oxyCODONE-APAP 5-325 mg Tablet PO (23:28)
[2021-07-15 04:00] VITALS: BP 133/80; PULSE 85; RESP 16; TEMP 36.5; O2SAT 99
[2021-07-15 04:10] VITALS: RESP 18; O2SAT 98
[2021-07-15] MEDS: oxyCODONE-APAP 5-325 mg Tablet PO (04:10)
[2021-07-15] MEDS: simethicone 80 mg Chew PO (08:20)
[2021-07-15] MEDS: ferrous sulfate EC 325 mg Tablet PO (08:20)
[2021-07-15] MEDS: docusate sodium 100 mg Capsule PO (08:21)
[2021-07-15] MEDS: prenatal vitamin Capsule 1 CAP PO (08:21)
[2021-07-15] MEDS: ibuprofen 800 mg tablet PO ×2 (08:21→15:44)
[2021-07-15] MEDS: clindamycin 900 MG/50 ML PREMIX 100 MG IV (08:22)
[2021-07-15] MEDS: alum-mag-hydroxide-sime 30 mL UDC PO (09:08)
[2021-07-15 10:25] VITALS: BP 125/85; PULSE 82; RESP 16; TEMP 36.6; O2SAT 98
--- NOTE | 2021-07-15 12:29 | P.DS_ITS ---
Discharge Providers Date of Admission: 07/12/21 19:03 Date of Discharge: July 15, 2021 Attending Provider at Admission: Mark Lozano MD Attending Provider at Discharge: Mark Lozano MD Primary Care Provider: Mark Lozano MD Diagnoses at Discharge Discharge Diagnosis (1) Intrauterine : Status: Resolved (2) Chronic hypertension: Status: Acute (3) Obesity: Status: Acute (4) Anxiety: Status: Acute Permanent problem details: Takes hydroxyzine as needed. Managed by primary care provider Dr. Lozano. Other Information Additional DC diagnoses/information: 1. Intrauterine status post primary low transverse section at 39.2 weeks gestation 2. Obesity 3. Chronic hypertension on labetalol 4. Elevated 1 hour GTT with normal 3-hour GTT 5. Arrest of dilation 6. Delivery of infant female weighing 8 pounds 9 ounces with APGARs of 2, 6 and 9 Reason for Visit 2 Reason for Visit: INDUCTION OF LABOR Hospital Course Hospital Course Eileen Bedolla is a 26 year old G1 now P1 status post primary low transverse section at 39.2 weeks gestation by LMP consistent with 7-week ultrasound. Her was complicated by obesity, difficulty becoming on Clomid for induction of ovulation, IBS, syncopal episode at 9 weeks gestation, chronic hypertension on labetalol 50 mg twice a day, elevated 1 hour GTT with normal 3-hour GTT, arrestive descent with likely cephalopelvic disproportion. The patient presented to labor delivery on the evening of 07/12/2021. She was started on Cytotec. The patient made change and was started on IV Pitocin. The patient received an laboring epidural. There are some intermittent late decelerations and the Pitocin was turned down. Eventually the Pitocin had to be turned off due to recurrent late decelerations. The patient continued to not make adequate cervical change and eventually had to go for a primary low transverse section. The patient did not have any complications during the surgery. the patient has done well without complications. At the time of discharge she is ambulating, voiding, passing gas and tolerating food by mouth. Her pain is well controlled. All questions were answered. The patient is in agreement with discharge home at this time. Physical Exam Narrative: EXAM NARRATIVE: General: Alert and oriented x3 Cardiac: Regular rate and rhythm without murmurs Lungs: Clear to auscultation bilaterally without wheezes, crackles or rhonchi Abdomen: Soft, mild diffuse tenderness, fundus is firm and below the umbilicus Extremities: +1 pitting edema in the bilateral lower extremities Urinary Catheter Management^: Shelley: Cath Placed During This Visit: yes, but has since been removed by the nurse Reason for Continuing Indwelling Catheter: Perioperative Use in Selected Surgeries Urinary Catheter Date of Insertion: 07/13/21 Urinary Catheter Time of Insertion: 16:05 Date Urinary Catheter Removed: 07/14/21 Time Urinary Catheter Discontinued: 21:17 Discharge Data Data Completed and Pending: Labs from last 24 hours 07/14/21 21:03 WBC 17.2 H RBC 3.27 L Hgb 9.8 L Hct 28.5 L MCV 87.2 MCH 30.0 MCHC 34.4 RDW 13.3 Plt Count 259 MPV 10.2 Vitals: Last Vital Signs Temp 97.9 F 07/15/21 10:25 Pulse 82 07/15/21 10:25 Resp 16 07/15/21 10:25 BP 125/85 07/15/21 10:25 Pulse Ox 98 07/15/21 10:25 Discharge Plan Discharge Patient Disposition: Home Condition: Good Prescriptions: New ibuprofen 800 mg Tablet 800 mg PO TID Qty: 60 RF: 0 oxycodone-acetaminophen 5-325 mg Tablet 1 tab PO Q6H PRN (Reason: Moderate To Severe Pain) Qty: 20 RF: 0 Continued Digestive Advantage Probio-Pre 800 million cell tablet 1 cell PO DAILY RF: 0 All Day Allergy (cetirizine) 10 mg capsule 10 mg PO DAILY RF: 0 prenat.vits,neda,dwl-jjly-mcuum Tablet 1 tab PO DAILY RF: 0 Changed ferrous sulfate 325 mg (65 mg iron) Tablet 300 mg PO BIDWM Qty: 60 RF: 0 labetalol 100 mg Tablet 50 mg PO BID Qty: 30 RF: 2 Discharge Orders: Discharge Order (Routine); Ordered 07/15/21 Ordered By: Mark Lozano Referrals: Mark Lozano MD [Primary Care Provider] - 07/22/21 12:40 pm Discharge Diet: Regular Discharge Activity: Limit activity as instructed Patient Instructions: , Depression (DC), Your Baby (DC), and the Working Mom (DC), Expression, Collection and Storage of Breast Milk (DC), and Nipple Soreness (DC), and Breast Engorgement (DC), and Plugged Ducts (DC), How to Increase Your Milk Supply (DC), How to Tell if Your Baby is Getting Enough Breast Milk (DC), and Your Diet (DC), Effects of Smoking, Alcohol, and Medicines on (DC), Caring for Your Breastfed Baby (DC), Bleeding (DC), Preeclampsia and Eclampsia After Delivery (GEN), (DC), Breast Care for the Mother (DC), OB Discharge Report, OB Food/Drug Interaction Guide, Opioid Safety, OB Home Care Activity Restrictions/Additional Instructions: If you have any concern for infection in your incision site, please be evaluated right away. Nothing per vagina for 6 weeks. Discharge Attestations Time Spent in Discharge Care*: greater than 30 min Quality Metrics Clinical Quality Measures During this hospital stay, did patient experience: None Coding Level of Care Code Acute Chg FW DC note Diagnoses Intrauterine Z34.90 Chronic hypertension I10 Obesity E66.9 Anxiety F41.9
[2021-07-15] MEDS: acetaminophen 325 mg Tablet 650 MG PO (13:17)
[2021-07-15 16:00] VITALS: BP 129/81; PULSE 80; RESP 16; TEMP 36.9; O2SAT 99
--- NOTE | 2021-07-16 09:21 | ANE.PACU2 ---
Inpatient post-anesthesia follow up: Airway intact: Yes Vital signs: Temperature 98.4 F Pulse Rate 80 Respiratory Rate 16 Blood Pressure 129/81 Pulse Oximetry 99 Oxygen Delivery Me thod Room Air Oxygen Flow Rate Fraction of Inspir ed Oxygen Hydration adequate: Yes Nausea and vomiting: No Mental status: Baseline Additional Comments: EMR review
== END 2021-07-15 16:00 | disposition home or self-care (01) | DRG 788 ==
LOC: OPOB 19:10 → OBGYN 19:11 → OPOB 20:33 → OBGYN 20:33
PROVIDERS: Admitting Provider Family Medicine; PCP Family Medicine; Visit Provider Family Medicine
PROC: 10D00Z1 Extraction of Products of Conception, Low, Open Approach (ICD-10-PCS; CPT 59514; principal; 2021-07-14 07:30)
DX: O99.214 Obesity complicating childbirth (principal); O10.92 Unspecified pre-existing hypertension complicating childbirth; O99.344 Other mental disorders complicating childbirth; F41.9 Anxiety disorder, unspecified; O76 Abnormality in fetal heart rate and rhythm complicating labor and delivery; O62.1 Secondary uterine inertia; O77.0 Labor and delivery complicated by meconium in amniotic fluid; O33.9 Maternal care for disproportion, unspecified; Z3A.39 39 weeks gestation of pregnancy; Z37.0 Single live birth; O75.89 Other specified complications of labor and delivery; K58.9 Irritable bowel syndrome, unspecified
CPT/HCPCS: 36415; 51702; 59025; 59409; 80053; 81003; 82570; 84156; 84550; 85025; 85027; 96374; 96376; J0330; J0595; J0690; J1100; J1200; J1885; J2270; J2370; J2405; J2704; J2765; J2795; J3010; J3490; J7030

== ENCOUNTER 2021-11-12 05:45 | Emergency (ER) | payer OTHER, SELFPAY ==
[2021-11-12 05:48] VITALS: BP 128/86; PULSE 127; RESP 17; TEMP 36.3; O2SAT 97; BMI 39.5
[2021-11-12] MEDS: ondansetron 2 mg/ML SDV 2 mL 4 MG IVP (06:15)
[2021-11-12 06:20] LABS: Basophils % 0.4 %; Eosinophils % 0.2 %; Hematocrit 43.1 % (37.0-47.0); Hemoglobin 14.9 g/dL (11.5-15.3); Lymphocytes # 0.5 10^3/uL (0.8-4.8); Lymphocytes % 4.9 %; Mean Corpuscular HGB Conc 34.6 g/dL (30.0-36.0); Mean Corpuscular Hemoglobin 30.3 pg (28.0-34.0); Mean Corpuscular Volume 87.6 fl (81-99); Mean Platelet Volume 9.5 fL (7.4-10.4); Monocytes # 0.4 10^3/uL (0.2-0.9); Monocytes % 3.3 %; Neutrophils # 9.68 10^3/uL (1.8-7.7); Nucleated Red Blood Cells % 0 %; Platelet Count 403 10^3/cmm (130-400); Red Blood Count 4.92 10^6/uL (4.1-5.3); Red Cell Distribution Width 12.4 % (12.1-15.1); White Blood Count 10.6 10^3/uL (4.0-10.0)
[2021-11-12] MEDS: lactated ringers 1,000 ML 999 ML IV ×2 (06:26→07:49)
[2021-11-12 06:27] VITALS: BP 118/80; PULSE 113; RESP 12; O2SAT 98
--- NOTE | 2021-11-12 06:34 | US_ITS ---
WS: [id number] RIGHT UPPER QUADRANT ULTRASOUND HISTORY: RUQ abd pain COMPARISON: 05/03/2020 Liver: 19.6 cm in length. Moderately enlarged liver. Diffuse coarse echotexture with attenuation. The entire liver is not well visualized due to marked attenuation. Mass would be difficult to exclude. N o bile duct dilatation. Portal Vein: Limited evaluation due to hepatic steatosis and enlargement. Gallbladder: Normally distended gallbladder with no stones or wall thickening. CBD: 0.3 cm Pancreas: Normal size and echogenicity. Right kidney: 12.0 cm in length. Normal size and echogenicity. No hydronephrosis or mass. Aorta and IVC: Unremarkable abdominal aorta and IVC. No ascites. US/US gall bladder [id number] IMPRESSION: 1. Quality of this examination is limited by patient's body habitus. 2. Moderately enlarged liver with moderate to severe hepatic steatosis with mi ld progression since the prior study. 3. Normal gallbladder.
[2021-11-12 06:36] LABS: HCG, Serum Qual Negative (Negative)
[2021-11-12 06:40] LABS: Alanine Aminotransferase 98 U/L (0-33); Alkaline Phosphatase 66 IU/L (35-105); Anion Gap 21.1 (5-19); Aspartate Amino Transferase 44 U/L (0-32); Blood Urea Nitrogen 15 mg/dL (6-20); Calcium 10.1 mg/dL (8.5-10.5); Carbon Dioxide 19 mmol/L (22-29); Chloride 102 mmol/L (98-107); Glomerular Filtration Rate 88.1 mL/min (90-130); Glucose 137 mg/dL (65-115); Osmolality Calculated 289 mOsm/kg (285-295); Potassium 4.1 mmol/L (3.5-5.1); Sodium 138 mmol/L (136-145); Total Bilirubin 0.4 mg/dL (0.15-1.2)
[2021-11-12 06:44] LABS: Add Urine Microscopic? YES; Bilirubin Urine Neg (Negative); Blood Urine Neg (Negative); Glucose Urine UA Norm (Normal); Ketones Urine Negative (Negative); Leukocyte Esterase Urine Negative (Negative); Nitrate Urine Negative (Negative); Protein Urine Neg (Negative); Specific Gravity, Urine 1.025 (1.005-1.030); Urine Appearance Cloudy (CLEAR); Urine Color Yellow (Yellow); Urobilinogen Urine Norm (Negative); pH Urine 5 (5-7)
[2021-11-12 06:45] LABS: Add Urine Culture? No; Amorphous Sediment Urine 3+ /hpf; Bacteria Urine 2+ /hpf
[2021-11-12 06:49] VITALS: RESP 19
[2021-11-12] MEDS: morphine 4 mg/mL SDV 1 mL IVP (06:49)
[2021-11-12 06:51] VITALS: BP 184/61
--- NOTE | 2021-11-12 06:57 | W.ED.ABDPA2 ---
HPI - Abdominal Pain General: Chief Complaint: Nausea/Vomiting/Diarrhea Stated Complaint: N/V/D Time Seen by Provider: 11/12/21 06:01 Source: patient Mode of arrival: ambulatory Limitations: no limitations History of Present Illness: 26-year-old female who presents emergency room with complaint of nausea vomiting and diarrhea. She is at acholic stools which began loose and then turned to very watery. She had right upper quadrant abdominal pain and cramping she cannot recall anything that seem to precipitated she does have a history of irritable bowel though she says it seemed different and then. She did have a about 4 months ago she had a few attacks like this that were less intense during the course of the as well. She denies any medic easy melena hematemesis coffee-ground emesis no dysuria urgency or frequency. MD elicited complaint: abdominal pain Pertinent past history: other (Irritable bowel) Onset (ago): hour(s) Pain Consistency: intermittent and colicky Location: RUQ Severity: moderate Quality: cramping Radiation: R flank and back Exacerbating factors: nothing Relieving factors: nothing Associated Symptoms: Reports change in stool character, GI cramping, diarrhea, dyspepsia, nausea and poor appetite; Denies anorexia, belching, bloating, change in bowel habits, chills, coffee ground emesis, constipation, dysuria, excessive flatus, fever(s), heartburn, hematochezia, hematuria, hematemesis, fecal incontinence, loose stools, melena, syncope and vomiting Review of Systems Const: Denies: fever(s) or chills ENMT: Denies: throat pain, ear or mastoid pain, nasal discharge or nasal congestion Card: Denies: chest pain or syncope Resp: Denies: dyspnea, productive cough or non-productive cough GI: Reports: abdominal pain, nausea, diarrhea, GI cramping and change in stool character; Denies: vomiting, hematemesis, coffee ground emesis, heartburn, constipation, bloating, belching, excessive flatus, fecal incontinence, change in bowel habits, hematochezia or melena : Reports: flank pain; Denies: difficulty voiding, dysuria, urinary frequency, urinary urgency or hematuria Skin/Breast: Denies: rash or pruritus PFSH ED PFSH: Medical History Anxiety Takes hydroxyzine as needed. Managed by primary care provider Dr. Lozano. H/O cardiac arrhythmia Reports having PVCs and during this time had elevated blood pressure and was placed on metoprolol. This was being managed by primary care provider at that time Dr. Romero. She states that since 2018 in 2018 since anxiety and stress improved she has not had these symptoms. She is asymptomatic at this time Irritable bowel Diagnosed in 2015 with a colonoscopy--anxiety and stress make it worse. She is on probiotics for this. Started desipramine by her primary care provider in May 2020 as well No pertinent past medical history Denies diabetes, asthma, hypertension, seizures, DVT/PE PCP: Dr. Lozano Surgical History S/P appendectomy 2011--laparoscopic procedure S/P tonsillectomy and adenoidectomy As a child Family History Family/Other Colon cancer maternal great grandmother Mother Thyroid condition Heart disease Diabetes Grandmother Heart disease maternal and paternal Diabetes paternal Grandfather Diabetes maternal Denies family history of Ovarian cancer Hyperlipidemia Breast cancer Hypertension Uterine cancer Stroke Social History Smoking and tobacco status: never smoked Alcohol intake: never Physical Exam Const: COMMON NORMALS: no acute distress GENERAL APPEARANCE: cooperative and comfortable ORIENTATION/CONSCIOUSNESS: Yes awake, Yes oriented to person, Yes oriented to place and Yes oriented to time HENMT: COMMON NORMALS: normocephalic, atraumatic and hearing grossly normal bilaterally HEAD & SCALP: normocephalic and atraumatic Neck/C-Spine: COMMON NORMALS: no JVD Resp: COMMON NORMALS: normal respiratory effort, No retractions, No use of accessory muscles and clear to auscultation bilaterally AUSCULTATION: clear to auscultation bilaterally Cardio: COMMON NORMALS: no JVD, regular rate, regular rhythm and No murmurs present (Cardio) RATE: regular rate RHYTHM: regular rhythm GI: COMMON NORMALS: Soft to palpation and No hepatosplenomegaly present AUSCULTATION: Yes normoactive bowel sounds PALPATION: Yes Soft to palpation, No Tenderness to palpation present (GI), No Guarding due to palpation present (GI) and Yes No hepatosplenomegaly present Extremity: COMMON NORMALS: normal to inspection, capillary refill normal, no clubbing, cyanosis or edema, no calf tenderness and no pedal edema Neuro: SENSORIUM/ORIENTATION: Yes oriented to person, Yes oriented to place and Yes oriented to time Skin: COMMON NORMALS: no rashes or lesions noted GENERAL SKIN EXAM: no rashes or lesions noted Course Vital Signs: Vital signs: Vital Signs Temperature 97.3 F L 11/12/21 05:48 Pulse Rate 117 H 11/12/21 09:04 Respiratory Rate 18 11/12/21 09:04 Blood Pressure 122/86 11/12/21 09:04 Pulse Oximetry 99 11/12/21 09:04 MDM - Abdominal Pain Medical Decision Making Labs reviewed. Patient appears to have onset of nonalcoholic steatohepatitis (NAVAS). She does not appear to have any acute gallbladder issues. ASIS acute urinary have biliary dyskinesia she gives a pretty good history for gallbladder like symptoms. Oriented [place] discharge home clear liquid diet advance as tolerated gave tramadol to use for pain and have her use antiemetics as needed advance diet as tolerated follow-up with primary care to evaluate further may need outpatient HIDA scan. Also needs further evaluation for her liver disease which compared to previous scans looks progressive. Otherwise she is feeling somewhat improved and safe to go home at this time. Return if she has further problems. Medical Records I reviewed the patient's medical records. Lab Data I reviewed the patient's lab results. : 11/12/21 06:10 11/12/21 06:10 Labs/Radiology: Radiology Impressions Gallbladder Ultrasound 11/12/21 06:34 IMPRESSION: 1. Quality of this examination is limited by patient's body habitus. 2. Moderately enlarged liver with moderate to severe hepatic steatosis with mild progression since the prior study. 3. Normal gallbladder. Laboratory Results WBC 10.6 10^3/uL (4.0-10.0) H 11/12/21 06:10 RBC 4.92 10^6/uL (4.1-5.3) 11/12/21 06:10 Hgb 14.9 g/dL (11.5-15.3) 11/12/21 06:10 Hct 43.1 % (37.0-47.0) 11/12/21 06:10 MCV 87.6 fl (81-99) 11/12/21 06:10 MCH 30.3 pg (28.0-34.0) 11/12/21 06:10 MCHC 34.6 g/dL (30.0-36.0) 11/12/21 06:10 RDW 12.4 % (12.1-15.1) 11/12/21 06:10 Plt Count 403 10^3/cmm (130-400) H 11/12/21 06:10 MPV 9.5 fL (7.4-10.4) 11/12/21 06:10 Neut % (Auto) 91.0 % 11/12/21 06:10 Lymph % (Auto) 4.9 % 11/12/21 06:10 [place] % (Auto) 3.3 % 11/12/21 06:10 Eos % (Auto) 0.2 % 11/12/21 06:10 Baso % (Auto) 0.4 % 11/12/21 06:10 Neut # (Auto) 9.68 10^3/uL (1.8-7.7) H 11/12/21 06:10 Lymph # (Auto) 0.5 10^3/uL (0.8-4.8) L 11/12/21 06:10 [place] # (Auto) 0.4 10^3/uL (0.2-0.9) 11/12/21 06:10 Eos # (Auto) 0.0 10^3/uL (0.0-0.8) 11/12/21 06:10 Baso # (Auto) 0.0 10^3/uL (0.0-0.1) 11/12/21 06:10 Nucleated RBC % (auto) 0 % 11/12/21 06:10 Nucleated RBCs # 0.0 /100WBC 11/12/21 06:10 Sodium 138 mmol/L (136-145) 11/12/21 06:10 Potassium 4.1 mmol/L (3.5-5.1) 11/12/21 06:10 Chloride 102 mmol/L (98-107) 11/12/21 06:10 Carbon Dioxide 19 mmol/L (22-29) L 11/12/21 06:10 Anion Gap 21.1 (5-19) H 11/12/21 06:10 BUN 15 mg/dL (6-20) 11/12/21 06:10 Creatinine 0.8 mg/dL (0.5-0.9) 11/12/21 06:10 GFR Calculation 88.1 mL/min (90-130) L 11/12/21 06:10 Glucose 137 mg/dL (65-115) H 11/12/21 06:10 Calculated Osmolality 289 mOsm/kg (285-295) 11/12/21 06:10 Calcium 10.1 mg/dL (8.5-10.5) 11/12/21 06:10 Total Bilirubin 0.4 mg/dL (0.15-1.2) 11/12/21 06:10 AST 44 U/L (0-32) H 11/12/21 06:10 ALT 98 U/L (0-33) H 11/12/21 06:10 Alkaline Phosphatase 66 IU/L (35-105) 11/12/21 06:10 Total Protein 9.0 g/dL (6.6-8.7) H 11/12/21 06:10 Albumin 5.0 g/dL (3.5-5.2) 11/12/21 06:10 Globulin 4.0 g/dL (1.3-4.6) 11/12/21 06:10 Lipase 17 U/L (13-60) 11/12/21 06:10 HCG, Qual Negative (Negative) 11/12/21 06:10 Urine Color Yellow (Yellow) 11/12/21 06:05 Urine Appearance Cloudy (CLEAR) 11/12/21 06:05 Urine pH 5 (5-7) 11/12/21 06:05 Ur Specific [place] 1.025 (1.005-1.030) 11/12/21 06:05 Urine Protein Neg (Negative) 11/12/21 06:05 Urine Glucose (UA) Norm (Normal) 11/12/21 06:05 Urine Ketones Negative (Negative) 11/12/21 06:05 Urine Blood Neg (Negative) 11/12/21 06:05 Urine Nitrate Negative (Negative) 11/12/21 06:05 Urine Bilirubin Neg (Negative) 11/12/21 06:05 Urine Urobilinogen Norm mg/dL (Negative) 11/12/21 06:05 Ur Leukocyte Esterase Negative (Negative) 11/12/21 06:05 Urine RBC None /hpf (0-2) 11/12/21 06:05 Urine WBC None /hpf (0-5) 11/12/21 06:05 Ur Squamous Epith Cells None /hpf (0-5) 11/12/21 06:05 Amorphous Sediment 3+ /hpf 11/12/21 06:05 Urine Bacteria 2+ /hpf (NONE) H 11/12/21 06:05 Discharge Plan Discharge Patient Disposition: Home Clinical Impression: Nausea & vomiting, NAVAS (nonalcoholic steatohepatitis) Condition: Stable Prescriptions: New promethazine 25 mg tablet 25 mg PO Q6H PRN (Reason: nausea and vomiting) Qty: 20 0RF tramadol 50 mg tablet 50 mg PO Q6H PRN (Reason: pain) Qty: 20 0RF No Action Digestive Advantage Probio-Pre 800 million cell tablet 1 cell PO DAILY 0RF All Day Allergy (cetirizine) 10 mg capsule 10 mg PO DAILY 0RF prenat.vits,neda,sls-vlbu-kyzvm Tablet 1 tab PO DAILY 0RF ibuprofen 800 mg Tablet 800 mg PO TID Qty: 60 0RF oxycodone-acetaminophen 5-325 mg Tablet 1 tab PO Q6H PRN (Reason: Moderate To Severe Pain) Qty: 20 0RF ferrous sulfate 325 mg (65 mg iron) Tablet 300 mg PO BIDWM Qty: 60 0RF labetalol 100 mg Tablet 50 mg PO BID Qty: 30 2RF Discharge Orders: Discharge ED (Routine); Ordered 11/12/21 Ordered By: Mario Boyd Referrals: Mark Lozano MD [Primary Care Provider] - Patient Instructions: Opioid Safety Activity Restrictions/Additional Instructions: Clear liquid diet for 24 to 48 hours and advance as tolerated. Use tramadol and promethazine as needed for symptoms. Follow-up with your primary care doctor for further evaluation and monitoring of the liver findings today. Coding Level of Care Code ED Creative Manager for [place] Fwd Exam Comprehensive
[2021-11-12 07:30] LABS: Lipase 17 U/L (13-60)
[2021-11-12 09:04] VITALS: BP 122/86; PULSE 117; RESP 18; O2SAT 99
== END 2021-11-12 09:06 | disposition home or self-care (01) ==
PROVIDERS: Emergency Provider Family Medicine; PCP Family Medicine
DX: K75.81 Nonalcoholic steatohepatitis (NASH) (principal); R11.2 Nausea with vomiting, unspecified
CPT/HCPCS: 76705; 80053; 81001; 83690; 84703; 85025; 96361; 96374; 96375; 99283; J2270; J2405

== ENCOUNTER → 2021-11-26 14:56 | Outpatient (BNVA) | payer OTHER, SELFPAY | PROVIDERS: PCP Family Medicine; Visit Provider Family Medicine | DX: Z00.00 Encounter for general adult medical examination without abnormal findings (principal) | CPT/HCPCS: 87624 ==

== ENCOUNTER 2022-01-07 07:58 | Outpatient (CLI) | payer OTHER, SELFPAY ==
--- NOTE | 2022-01-07 08:05 | NM_ITS ---
WS: [id number] NUCLEAR MEDICINE HIDA SCAN WITH GALLBLADDER EJECTION FRACTION HISTORY: RUQ ABD PAIN COMPARISON: Gallbladder ultrasound 11/12/2021. TECHNIQUE: The patient was intravenously injected with 7.5 mCi of TC99m Mebrofenin. Immediate imaging over the right upper quadrant was followed by 5 minute image and additional images for a total of 60 minutes. Normal uptake of radiotracer throughout the liver. Liver does appear enlarged. Activity identified in the gallbladder at 15 minutes and well distended by 60 minutes. Activity in the proximal small bowel was seen by 30 minutes. Good washout of the radiotracer from the liver by 60 minutes. The patient then drank 8 ounces of Ensure Plus. Ejection fraction at 60 minutes was 75%. Normal GB ej ection fraction is 35-75%. Post fatty meal symptoms: None. NM/NM hepatobiliary w phar* [id number] IMPRESSION: 1. Normal HIDA scan. 2. Normal gallbladder ejection fraction.
== END 2022-01-07 07:59 | disposition home or self-care (01) ==
LOC: RAD 08:01
PROVIDERS: PCP Family Medicine; Visit Provider Family Medicine
DX: R10.11 Right upper quadrant pain (principal)
CPT/HCPCS: 78227; A9537

== ENCOUNTER → 2022-05-01 15:31 | Outpatient (BNVA) | payer OTHER, SELFPAY | PROVIDERS: PCP Family Medicine; Visit Provider Nurse Practitioner Family | DX: Z30.09 Encounter for other general counseling and advice on contraception (principal); N92.0 Excessive and frequent menstruation with regular cycle | CPT/HCPCS: 81025 ==

== ENCOUNTER → 2022-05-06 11:51 | Outpatient (BNVA) | payer OTHER, SELFPAY | PROVIDERS: PCP Family Medicine; Visit Provider Family Medicine | DX: N92.0 Excessive and frequent menstruation with regular cycle (principal); F41.9 Anxiety disorder, unspecified; I10 Essential (primary) hypertension | CPT/HCPCS: 82728; 84443; 85025 ==

== ENCOUNTER → 2022-06-04 13:45 | Outpatient (BNVA) | payer OTHER, SELFPAY | PROVIDERS: PCP Family Medicine; Visit Provider Nurse Practitioner Women's Health | DX: N93.9 Abnormal uterine and vaginal bleeding, unspecified (principal) | CPT/HCPCS: 84443; 84702 ==

== ENCOUNTER → 2022-06-27 07:34 | Outpatient (BNVA) | payer OTHER, SELFPAY | PROVIDERS: PCP Family Medicine; Visit Provider Nurse Practitioner Women's Health | DX: N93.9 Abnormal uterine and vaginal bleeding, unspecified (principal) | CPT/HCPCS: 76830 ==

== ENCOUNTER 2022-07-21 02:06 | Emergency (ER) | payer OTHER, SELFPAY ==
[2022-07-21 02:10] VITALS: BP 142/77; PULSE 76; RESP 16; TEMP 37.1; O2SAT 97; BMI 34.2
--- NOTE | 2022-07-21 02:31 | USR_ITS ---
PROCEDURE INFORMATION: Exam: US Abdomen, Limited; Right Upper Quadrant Exam date and time: 07/21/2022 3:25 AM Age: 27 years old Clinical indication: Nausea and vomiting; Patient HX: On going problem. Was in er in October; Additional info: Ruq pain TECHNIQUE: Imaging protocol: Real time ultrasound of the abdomen with image documentation. Limited exam focused on the right upper quadrant. COMPARISON: US gall bladder [id number] 11/12/2021 7:23 AM FINDINGS: Liver: The visualized liver shows normal contour and morphology with normal parenchymal echo texture. The liver size appears normal on sonography. Main portal vein is patent. Gallbladder: Some tiny shadowing gallstones are seen with [id number] gallbladder sludge (series 1, image 65). No gallbladder wall thickening or pericholecystic fluid. Biliary ducts: The demonstrated intrahepatic bile ducts are not dilated. The demonstrated extrahepatic is not dilated. The demonstrated extrahepatic/common bile duct measures 0.46 cm. The distal common bile duct is not well seen. Pancreas: Visualized pancreas is unremarkable. Right kidney: The right kidney measures 12.2 x 5.5 x 5.8 cm. There is normal renal contour and morphology, with normal parenchymal echotexture. There is no hydronephrosis. Aorta: Visualized segments appear unremarkable. Inferior vena cava: Visualized segments appear unremarkable. Intraperitoneal space: There is no right upper quadrant ascites seen. US/US gall bladder [id number] IMPRESSION: Some tiny shadowing gallstones with [id number] gallbladder sludge. No gallbladder wall thickening or pericholecystic fluid. No biliary ductal dilatation.
[2022-07-21 02:43] LABS: Basophils # 0.1 10^3/uL (0.0-0.1); Basophils % 0.5 %; Eosinophils # 0.5 10^3/uL (0.0-0.8); Hematocrit 37.7 % (37.0-47.0); Hemoglobin 12.4 g/dL (11.5-15.3); Lymphocytes # 3.6 10^3/uL (0.8-4.8); Lymphocytes % 37.9 %; Mean Corpuscular HGB Conc 32.9 g/dL (30.0-36.0); Mean Corpuscular Hemoglobin 28.1 pg (28.0-34.0); Mean Corpuscular Volume 85.3 fl (81-99); Mean Platelet Volume 9.5 fL (7.4-10.4); Monocytes # 0.7 10^3/uL (0.2-0.9); Monocytes % 7.2 %; Neutrophils # 4.68 10^3/uL (1.8-7.7); Nucleated Red Blood Cells % 0 %; Platelet Count 402 10^3/cmm (130-400); Red Blood Count 4.42 10^6/uL (4.1-5.3); White Blood Count 9.6 10^3/uL (4.0-10.0)
[2022-07-21 03:02] LABS: Alanine Aminotransferase 19 U/L (0-33); Albumin Level 4.3 g/dL (3.5-5.2); Alkaline Phosphatase 69 U/L (35-105); Anion Gap 14.6 (5-19); Aspartate Amino Transferase 14 U/L (0-32); Blood Urea Nitrogen 12 mg/dL (6-20); Calcium 9.9 mg/dL (8.5-10.5); Carbon Dioxide 21 mmol/L (22-29); Chloride 105 mmol/L (98-107); Globulin 3.6 g/dL (1.3-4.6); Glucose 113 mg/dL (65-115); Lipase 30 U/L (13-60); Osmolality Calculated 285 mOsm/kg (285-295); Potassium 3.6 mmol/L (3.5-5.1); Sodium 137 mmol/L (136-145); Total Bilirubin 0.2 mg/dL (0.15-1.2); Total Protein 7.9 g/dL (6.6-8.7)
[2022-07-21 03:25] LABS: Add Urine Microscopic? NO; Charge for UA Resulting for Rev
[2022-07-21 03:29] LABS: Bilirubin Urine Neg (Negative); Blood Urine Neg (Negative); Glucose Urine UA Norm (Normal); HCG Qualitative Urine. Negative (Negative); Ketones Urine Negative (Negative); Leukocyte Esterase Urine Negative (Negative); Nitrate Urine Negative (Negative); Protein Urine Neg (Negative); Specific Gravity, Urine 1.015 (1.005-1.030); Urine Appearance Clear (CLEAR); Urine Color Yellow (Yellow); Urobilinogen Urine Norm (Negative); pH Urine 6 (5-7)
[2022-07-21] MEDS: ondansetron 2 mg/ML SDV 2 mL 4 MG IVP (04:03)
[2022-07-21] MEDS: sodium chloride 0.9% 1,000 ML 999 ML IV (04:03)
[2022-07-21] MEDS: morphine 4 mg/mL SDV 1 mL IVP (04:03)
[2022-07-21] MEDS: ketorolac 30 mg/mL INJ IVP (04:03)
[2022-07-21 04:06] VITALS: BP 113/62; PULSE 78; RESP 16; O2SAT 98
[2022-07-21 05:28] VITALS: BP 129/55; PULSE 90; RESP 16; O2SAT 100
--- NOTE | 2022-07-24 21:58 | W.ED.ABDPA2 ---
HPI - Abdominal Pain General: Chief Complaint: Abdominal Pain Stated Complaint: RUQ pain Time Seen by Provider: 07/21/22 03:01 Source: patient History of Present Illness: 27yo female presenting with ruq pain. she states she has had this problem before and has been treated. she has been nauseated. no fever. MD elicited complaint: abdominal pain Pertinent past history: other Onset (ago): hour(s) Pain Consistency: constant Location: RUQ Severity: moderate Quality: stabbing and aching Radiation: RUQ Associated Symptoms: Reports nausea; Denies chills, constipation, GI cramping, diarrhea, fever(s), hematemesis and vomiting Review of Systems Const: Denies: fever(s) or chills ENMT: Denies: throat pain Card: Denies: chest pain, pre-syncope or dyspnea on exertion Resp: Denies: dyspnea, productive cough or non-productive cough GI: Reports: abdominal pain and nausea; Denies: vomiting, hematemesis, diarrhea, constipation or GI cramping : Denies: flank pain or difficulty voiding PFSH ED PFSH: Medical History Anxiety Takes hydroxyzine as needed. Managed by primary care provider Dr. Lozano. H/O cardiac arrhythmia Reports having PVCs and during this time had elevated blood pressure and was placed on metoprolol. This was being managed by primary care provider at that time Dr. Romero. She states that since 2018 in 2018 since anxiety and stress improved she has not had these symptoms. She is asymptomatic at this time but will have symptoms with elevated BP. Irritable bowel Diagnosed in 2015 with a colonoscopy--anxiety and stress make it worse. She is on probiotics for this. Started desipramine by her primary care provider in May 2020 as well No pertinent past medical history Denies diabetes, asthma, hypertension, seizures, DVT/PE PCP: Dr. 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 Lozano S/P appendectomy 2011--laparoscopic procedure S/P tonsillectomy and adenoidectomy As a child Family History Family/Other Colon cancer maternal great grandmother-- dx age unknown Mother Thyroid condition Diabetes Grandmother Heart disease maternal and paternal Diabetes paternal Grandfather Diabetes maternal Denies family history of Ovarian cancer Hyperlipidemia Breast cancer Hypertension Uterine cancer Stroke Social History Smoking and tobacco status: never smoked Alcohol intake: never Physical Exam Const: COMMON NORMALS: no acute distress GENERAL APPEARANCE: cooperative; not ill appearing and not frail appearing HENMT: COMMON NORMALS: normocephalic, atraumatic and Normal external nose present HEAD & SCALP: normocephalic and atraumatic FACE & SINUS: normal facial exam and face symmetric NOSE: Normal external nose present Eye: COMMON NORMALS: Equal, round and reactive pupils present and EOMs intact bilaterally PUPIL: Yes Equal, round and reactive pupils present Neck/C-Spine: GENERAL: Yes trachea midline Chest: CHEST: Yes Symmetrical chest wall rise Resp: COMMON NORMALS: normal respiratory effort, No retractions, No use of accessory muscles and clear to auscultation bilaterally AUSCULTATION: clear to auscultation bilaterally Cardio: COMMON NORMALS: regular rate and regular rhythm RATE: regular rate RHYTHM: regular rhythm GI: COMMON NORMALS: Normal to inspection, nondistended, normoactive bowel sounds present and Soft to palpation PALPATION: Yes Soft to palpation and Yes Tenderness to palpation present (GI) Details: RUQ Extremity: COMMON NORMALS: no pedal edema Neuro: KAILA COMA SCALE: document GCS findings [place] coma scale eye opening: Spontaneous [place] coma scale verbal response: Orientated [place] coma scale motor response: Obey commands [place] coma scale total score: 15 SENSORY EXAM: Yes extremities (intact) Psych: COMMON NORMALS: speech normal SPEECH: Yes normal speech Skin: COMMON NORMALS: no rashes or lesions noted GENERAL SKIN EXAM: no rashes or lesions noted Course Vital Signs: Vital signs: Vital Signs Temperature 98.8 F 07/21/22 02:10 Pulse Rate 90 07/21/22 05:28 Respiratory Rate 16 07/21/22 05:28 Blood Pressure 129/55 07/21/22 05:28 Pulse Oximetry 100 07/21/22 05:28 Oxygen Delivery Me thod 07/21/22 02:10 MDM - Abdominal Pain Medical Decision Making 27 yo female with a hx of tuq pain. her symptoms are much improved now. she is afebrile. her laboratory including liver function is unremarkable. GB US shows tiny stones and sludge, no signs of cholecystitis. She has a long hx of biliary colic it sounds. although her symptoms are improved, and she is stable, she will need outpt fu regarding the gallbladder. she is encouraged to fu with her pcp regarding this. Lab Data 07/21/22 02:15 07/21/22 02:15 Labs/Radiology: Radiology Impressions Gallbladder Ultrasound 07/21/22 02:31 IMPRESSION: Some tiny shadowing gallstones with [id number] gallbladder sludge. No gallbladder wall thickening or pericholecystic fluid. No biliary ductal dilatation. Laboratory Results WBC 9.6 10^3/uL (4.0-10.0) 07/21/22 02:15 RBC 4.42 10^6/uL (4.1-5.3) 07/21/22 02:15 Hgb 12.4 g/dL (11.5-15.3) 07/21/22 02:15 Hct 37.7 % (37.0-47.0) 07/21/22 02:15 MCV 85.3 fl (81-99) 07/21/22 02:15 MCH 28.1 pg (28.0-34.0) 07/21/22 02:15 MCHC 32.9 g/dL (30.0-36.0) 07/21/22 02:15 RDW 13.0 % (12.1-15.1) 07/21/22 02:15 Plt Count 402 10^3/cmm (130-400) H 07/21/22 02:15 MPV 9.5 fL (7.4-10.4) 07/21/22 02:15 Neut % (Auto) 49.0 % 07/21/22 02:15 Lymph % (Auto) 37.9 % 07/21/22 02:15 [place] % (Auto) 7.2 % 07/21/22 02:15 Eos % (Auto) 5.0 % 07/21/22 02:15 Baso % (Auto) 0.5 % 07/21/22 02:15 Neut # (Auto) 4.68 10^3/uL (1.8-7.7) 07/21/22 02:15 Lymph # (Auto) 3.6 10^3/uL (0.8-4.8) 07/21/22 02:15 [place] # (Auto) 0.7 10^3/uL (0.2-0.9) 07/21/22 02:15 Eos # (Auto) 0.5 10^3/uL (0.0-0.8) 07/21/22 02:15 Baso # (Auto) 0.1 10^3/uL (0.0-0.1) 07/21/22 02:15 Nucleated RBC % (auto) 0 % 07/21/22 02:15 Nucleated RBCs # 0.0 /100WBC 07/21/22 02:15 Sodium 137 mmol/L (136-145) 07/21/22 02:15 Potassium 3.6 mmol/L (3.5-5.1) 07/21/22 02:15 Chloride 105 mmol/L (98-107) 07/21/22 02:15 Carbon Dioxide 21 mmol/L (22-29) L 07/21/22 02:15 Anion Gap 14.6 (5-19) 07/21/22 02:15 BUN 12 mg/dL (6-20) 07/21/22 02:15 Creatinine 0.7 mg/dL (0.5-0.9) 07/21/22 02:15 GFR Calculation 102.0 mL/min (90-130) 07/21/22 02:15 Glucose 113 mg/dL (65-115) 07/21/22 02:15 Calculated Osmolality 285 mOsm/kg (285-295) 07/21/22 02:15 Calcium 9.9 mg/dL (8.5-10.5) 07/21/22 02:15 Total Bilirubin 0.2 mg/dL (0.15-1.2) 07/21/22 02:15 AST 14 U/L (0-32) 07/21/22 02:15 ALT 19 U/L (0-33) 07/21/22 02:15 Alkaline Phosphatase 69 U/L (35-105) 07/21/22 02:15 Total Protein 7.9 g/dL (6.6-8.7) 07/21/22 02:15 Albumin 4.3 g/dL (3.5-5.2) 07/21/22 02:15 Globulin 3.6 g/dL (1.3-4.6) 07/21/22 02:15 Lipase 30 U/L (13-60) 07/21/22 02:15 HCG, Qual Negative (Negative) 07/21/22 03:20 Urine Color Yellow (Yellow) 07/21/22 03:20 Urine Appearance Clear (CLEAR) 07/21/22 03:20 Urine pH 6 (5-7) 07/21/22 03:20 Ur Specific [place] 1.015 (1.005-1.030) 07/21/22 03:20 Urine Protein Neg (Negative) 07/21/22 03:20 Urine Glucose (UA) Norm (Normal) 07/21/22 03:20 Urine Ketones Negative (Negative) 07/21/22 03:20 Urine Blood Neg (Negative) 07/21/22 03:20 Urine Nitrate Negative (Negative) 07/21/22 03:20 Urine Bilirubin Neg (Negative) 07/21/22 03:20 Urine Urobilinogen Norm mg/dL (Negative) 07/21/22 03:20 Ur Leukocyte Esterase Negative (Negative) 07/21/22 03:20 Discharge Plan Discharge Patient Disposition: Home Clinical Impression: Biliary colic Condition: Stable Prescriptions: New ketorolac 10 mg tablet 10 mg PO TID PRN (Reason: pain) Qty: 10 0RF ondansetron 4 mg film 4 mg PO DAILY PRN (Reason: nausea and vomiting) Qty: 10 0RF No Action Zyrtec 10 mg capsule 10 mg PO DAILY PRN psyllium seed (sugar) Powder 1 tbsp PO DAILY Label Comments: Fiber norethindrone acetate 5 mg tablet 5 mg PO DAILY Qty: 30 1RF Discharge Orders: Discharge ED (Routine); Ordered 07/21/22 Ordered By: Cristobal Tay Referrals: Mark Lozano MD [Primary Care Provider] - 4-7 days Patient Instructions: Biliary Colic (ED) Coding Level of Care Code ED Color Tester for Chg Lacey
== END 2022-07-21 05:30 | disposition home or self-care (01) ==
PROVIDERS: Emergency Provider Emergency Medicine; PCP Family Medicine
DX: K80.50 Calculus of bile duct without cholangitis or cholecystitis without obstruction (principal)
CPT/HCPCS: 76705; 80053; 81003; 81025; 83690; 85025; 96361; 96374; 96375; 99284; J1885; J2270; J2405; J7030

== ENCOUNTER → 2022-08-13 16:00 | Outpatient (BNVA) | payer OTHER, SELFPAY | PROVIDERS: PCP Family Medicine; Visit Provider Nurse Practitioner Women's Health | DX: N93.9 Abnormal uterine and vaginal bleeding, unspecified (principal) | CPT/HCPCS: 81025; 88305 ==

== ENCOUNTER → 2022-11-27 15:13 | Outpatient (BNVA) | payer OTHER, SELFPAY | PROVIDERS: PCP Family Medicine; Visit Provider Family Medicine | DX: E53.8 Deficiency of other specified B group vitamins (principal); R53.81 Other malaise; R53.83 Other fatigue; Z51.81 Encounter for therapeutic drug level monitoring; E55.9 Vitamin D deficiency, unspecified | CPT/HCPCS: 80053; 82306; 82607; 84439; 84443; 85025 ==

== ENCOUNTER → 2023-07-21 14:00 | Outpatient (BNVA) | payer OTHER, SELFPAY | PROVIDERS: PCP Family Medicine; Visit Provider Family Medicine | DX: Z34.80 Encounter for supervision of other normal pregnancy, unspecified trimester (principal); E53.8 Deficiency of other specified B group vitamins; E55.9 Vitamin D deficiency, unspecified; R30.0 Dysuria | CPT/HCPCS: 80307; 81000; 81025; 82306; 82607; 84144; 84702; 85025; 86592; 86762; 86803; 86850; 86900; 87086; 87340; 87806 ==

== ENCOUNTER 2023-07-31 15:00 | Outpatient (CLI) | payer OTHER, SELFPAY ==
--- NOTE | 2023-07-31 15:15 | US_ITS ---
WS: [id number] EARLY OBSTETRICAL ULTRASOUND (<14 WEEKS). HISTORY: Dating - End of next week if possible COMPARISON: None available. Single intrauterine gestational sac is identified. Cardiac activity at 147 BPM. Coleta-rump length cristobal sures 0.6 cm which corresponds to a gestation of 6w3d. Normal-appearing yolk sac and amnion demonstra juma. No subchorionic hemorrhage. No free fluid. Normal size ovaries with no mass. IMPRESSION: 1. Single intrauterine gestation of 6 weeks 3 days. 2. Normal cardiac activity.
== END 2023-07-31 15:01 | disposition home or self-care (01) ==
PROVIDERS: PCP Family Medicine; Visit Provider Family Medicine
DX: Z34.81 Encounter for supervision of other normal pregnancy, first trimester (principal); Z36.89 Encounter for other specified antenatal screening
CPT/HCPCS: 76801

== ENCOUNTER 2023-07-31 20:56 | Emergency (ER) | payer OTHER, SELFPAY ==
[2023-07-31 21:11] VITALS: BP 126/90; PULSE 115; RESP 18; TEMP 36.8; O2SAT 97; BMI 38.7
--- NOTE | 2023-07-31 22:19 | ED_ITS ---
HPI - Abdominal Pain 2 General: Chief Complaint: Abdominal Pain Stated Complaint: abdomen pain,n/v Time Seen by Provider: 07/31/23 21:28 History of Present Illness: 28-year-old female who is a G2, P1 at 7 weeks. She is experienced vomiting and diarrhea for the past few days. She has been achy. She believes she had a fever a couple of days ago. She has been able to hold down some fluid, but not much. She had her ultrasound today for dates, and got sick again afterwards. She was told by her doctor she may need IV fluids. Associated Symptoms: Reports chills, diarrhea, fever(s), nausea and vomiting; Denies hematochezia Related Data: Date of Last Menstrual Period: 06/04/23 Review of Systems 2 Const: Reports: fever(s), chills and body aches Eyes: Denies: change in vision Card: Denies: chest pain or palpitations Resp: Denies: dyspnea, productive cough, non-productive cough or wheezing GI: Reports: abdominal pain, nausea, vomiting and diarrhea; Denies: hematochezia : Denies: difficulty voiding Skin/Breast: Denies: rash Neuro: Reports: headache(s) and weakness in extremities; Denies: dizziness or confusion PFSH ED 2 PFSH: Medical History Migraine with aura Anxiety Takes hydroxyzine as needed. Managed by primary care provider Dr. Lozano. H/O cardiac arrhythmia Reports having PVCs and during this time had elevated blood pressure and was placed on metoprolol. This was being managed by primary care provider at that time Dr. Romero. She states that since 2018 in 2019 since anxiety and stress improved she has not had these symptoms. She is asymptomatic at this time but will have symptoms with elevated BP. Irritable bowel Diagnosed in 2015 with a colonoscopy--anxiety and stress make it worse. She is on probiotics for this. Started desipramine by her primary care provider in May 2020 as well No pertinent past medical history Denies diabetes, asthma, hypertension, seizures, DVT/PE PCP: Dr. 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 Lozano S/P tonsillectomy and adenoidectomy As a child S/P appendectomy 2011--laparoscopic procedure Family History Family/Other Colon cancer maternal great grandmother-- dx age unknown Mother Thyroid disease Diabetes Grandmother Heart disease maternal and paternal Diabetes paternal Grandfather Diabetes maternal Denies family history of Ovarian cancer Hyperlipidemia Breast cancer Hypertension Uterine cancer Stroke Female Reproductive History: Date of last menstrual period: 06/04/23 Physical Exam 2 Const: COMMON NORMALS: no acute distress GENERAL APPEARANCE: cooperative and ill appearing (Mildly); not frail appearing HENMT: COMMON NORMALS: normocephalic, atraumatic and Normal external nose present HEAD & SCALP: normocephalic and atraumatic FACE & SINUS: normal facial exam and face symmetric NOSE: Normal external nose present Eye: COMMON NORMALS: Equal, round and reactive pupils present and EOMs intact bilaterally PUPIL: Yes Equal, round and reactive pupils present Neck/C-Spine: GENERAL: Yes trachea midline Chest: CHEST: Yes Symmetrical chest wall rise Resp: COMMON NORMALS: normal respiratory effort, No retractions, No use of accessory muscles and clear to auscultation bilaterally AUSCULTATION: clear to auscultation bilaterally Cardio: COMMON NORMALS: regular rhythm RATE: tachycardic RHYTHM: regular rhythm GI: COMMON NORMALS: Normal to inspection, nondistended, normoactive bowel sounds present Extremity: COMMON NORMALS: no pedal edema Neuro: RADHA COMA SCALE: document GCS findings [place] coma scale eye opening: Spontaneous [place] coma scale verbal response: Orientated [place] coma scale motor response: Obey commands [place] coma scale total score: 15 S ENSORY EXAM: Yes extremities (intact) Psych: COMMON NORMALS: speech normal SPEECH: Yes normal speech Skin: COMMON NORMALS: no rashes or lesions noted GENERAL SKIN EXAM: no rashes or lesions noted Course 2 Vital Signs: Vital signs: Vital Signs Temperature 98.2 F 07/31/23 21:11 Pulse Rate 88 08/01/23 01:02 Respiratory Rate 18 08/01/23 00:55 Blood Pressure 138/76 08/01/23 01:02 Pulse Oximetry 98 08/01/23 01:02 Oxygen Delivery Me thod Room Air 07/31/23 21:11 MDM - Abdominal Pain Medical Decision Making 28-year-old female presenting with vomiting and diarrhea. She is 7 weeks . She is mildly tachycardic. Other vitals are stable. CBC is normal. BMP shows a bicarbonate of 18. Lipase is normal. CRP is 12. Swabs for flu and COVID are negative. Urinalysis reveals hematuria. The patient has noticed some intermittent blood in the urine. She is not experiencing flank pain. She feels improved after antiemetic and fluid here. She will be allowed home on antiemetics. Close outpatient follow-up. To return for any worsening bleeding, particularly vaginal bleeding. Lab Data 07/31/23 22:25 07/31/23 22:25 Labs/Radiology: Laboratory Results WBC 9.30 10^3/uL (3.29-11.43) 07/31/23 22: RBC 4.60 10^6/uL (3.85-5.65) 07/31/23 22: Hgb 13.70 g/dL (11.27-16.99) 07/31/23 22: Hct 39.1 % (36-47) 07/31/23 22: MCV 85.0 fl (85-98) 07/31/23 22: MCH 29.8 pg (27-33) 07/31/23 22: MCHC 35.0 g/dL (30-55) 07/31/23 22: RDW 13.0 % (12.1-15.1) 07/31/23 22: Plt Count 269 10^3/cmm (157-399) 07/31/23 22: MPV 9.0 fL (7.4-10.4) 07/31/23 22:25 Neut % (Auto) 78.9 % 07/31/23 22: Lymph % (Auto) 11.9 % 07/31/23 22: [place] % (Auto) 8.3 % 07/31/23 22: Eos % (Auto) 0.5 % 07/31/23: Baso % (Auto) 0.2 % 07/31/23: Neut # (Auto) 7.33 10^3/uL (1.8-7.7) 01/05/24 22:25 Lymph # (Auto) 1.1 10^3/uL (0.8-4.8) 07/31/23 22:25 [place] # (Auto) 0.8 10^3/uL (0.2-0.9) 07/31/23 22:25 Eos # (Auto) 0.1 10^3/uL (0.0-0.8) 07/31/23 22:25 Baso # (Auto) 0.0 10^3/uL (0.0-0.1) 07/31/23 22:25 Nucleated RBC % (auto) 0 % 07/31/23 22:25 Nucleated RBCs # 0.0 /100WBC 07/31/23 22:25 Sodium 135 mmol/L (136-145) L 07/31/23 22:25 Potassium 4.1 mmol/L (3.5-5.1) 07/31/23 22:25 Chloride 104 mmol/L (98-107) 07/31/23 22:25 Carbon Dioxide 18 mmol/L (22-29) L 07/31/23 22:25 Anion Gap 17.1 (5-19) 07/31/23 22:25 BUN 8 mg/dL (6-20) 07/31/23 22:25 Creatinine 0.7 mg/dL (0.5-0.9) 07/31/23 22:25 GFR Calculation 101.1 mL/min (90-130) 07/31/23 22:25 Glucose 126 mg/dL (65-115) H 07/31/23 22:25 Calculated Osmolality 280 mOsm/kg (285-295) L 07/31/23 22:25 Calcium 9.2 mg/dL (8.5-10.5) 07/31/23 22:25 Magnesium 1.9 mg/dL (1.7-2.3) 07/31/23 22:25 Total Bilirubin 0.3 mg/dL (0.15-1.2) 07/31/23 22:25 AST 31 U/L (0-32) 07/31/23 22:25 ALT 48 U/L (0-33) H 07/31/23 22:25 Alkaline Phosphatase 63 U/L (35-105) 07/31/23 22:25 C-Reactive Protein 12.3 mg/L (0.0-4.9) H 07/31/23 22:25 Total Protein 8.0 g/dL (6.6-8.7) 07/31/23 22:25 Albumin 4.1 g/dL (3.5-5.2) 07/31/23 22:25 Globulin 3.9 g/dL (1.3-4.6) 07/31/23 22:25 Lipase 15 U/L (13-60) 07/31/23 22:25 Ser , Semi-Qnt 01587.00 mIU/mL 07/31/23 22:25 Urine Color [place] (Yellow) A 07/31/23 00:10 Urine Appearance Hazy (CLEAR) A 07/31/23 00:10 Urine pH 5 (5-7) 07/31/23 00:10 Ur Specific [place] 1.010 (1.005-1.030) 07/31/23 00:10 Urine Protein 1+ (Negative) H 07/31/23 00:10 Urine Glucose (UA) Norm (Normal) 07/31/23 00:10 Urine Ketones Negative (Negative) 07/31/23 00:10 Urine Blood 3+ (Negative) H 07/31/23 00:10 Urine Nitrate Negative (Negative) 07/31/23 00:10 Urine Bilirubin Neg (Negative) 07/31/23 00:10 Urine Urobilinogen Norm mg/dL (Negative) 07/31/23 00:10 Ur Leukocyte Esterase Negative (Negative) 07/31/23 00:10 Urine RBC 50-80 /hpf (0-2) H 07/31/23 00:10 Urine WBC 0-4 /hpf (0-5) H 07/31/23 00:10 Ur Squamous Epith Cells 0-4 /hpf (0-5) H 07/31/23 00:10 Amorphous Sediment Not Reportable 07/31/23 00:10 Urine Bacteria Tr /hpf (NONE) 07/31/23 00:10 Influenza Type A Ag negative (Negative) 07/31/23 22:55 Influenza Type B Ag negative (Negative) 07/31/23 22:55 SARS-CoV-2 Ag (Rapid) negative (Negative) 07/31/23 22:55 No radiology studies performed this visit Discharge Plan Discharge Patient Disposition: Home Clinical Impression: Gastroenteritis Condition: Stable Prescriptions: New ondansetron 4 mg tablet,disintegrating 4 mg PO Q6H PRN (Reason: nausea and vomiting) Qty: 14 0RF Reglan 10 mg tablet 10 mg PO Q6H PRN (Reason: nausea and vomiting) Qty: 14 0RF No Action bran 500 mg tablet 1 mg PO DAILY cyanocobalamin (vitamin B-12) 1,000 mcg capsule 1,000 mcg PO DAILY cholecalciferol (vitamin D3) 50 mcg (2,000 unit) tablet,chewable 50 mcg PO DAILY Galzin 25 mg (zinc) capsule 25 mg PO DAILY mupirocin 2 % ointment 1 applic topical BID Qty: 15 2RF Rx Instructions: Apply to the bilateral nares BID until better loratadine 10 mg tablet 10 mg PO DAILY pyridoxine (vitamin B6) 25 mg tablet 25 mg PO DAILY Qty: 30 6RF doxylamine succinate 25 mg tablet See Rx Instructions .Route .COMPLEX PRN (Reason: allergy symptoms) Qty: 30 6RF Rx Instructions: Take 1 tab by mouth each evening and 1/2 tab in the am as needed for nausea PRN; Discharge Orders: Discharge ED (Routine); Ordered 08/01/23 Ordered By: Cristobal Tay Referrals: Mark Lozano MD [Primary Care Provider] - Patient Instructions: Gastroenteritis (ED) Activity Restrictions/Additional Instructions: Take nausea medication scheduled every 6 hours for the first 24 hours, then as needed following. Follow clear liquid diet for at least 12 hours, then you may add solid food as tolerated if no vomiting. Return for worsening pain, fever, inability to tolerate liquids, any other concerning problems. Return also for brisk vaginal bleeding, soaking a pad an hour for more than 2 hours consecutively. Coding Level of Care Code ED [employer] Analyst for Belgica Rahman
[2023-07-31 22:30] LABS: Basophils % 0.2 %; Eosinophils # 0.1 10^3/uL (0.0-0.8); Eosinophils % 0.5 %; Hematocrit 39.1 % (36-47); Lymphocytes # 1.1 10^3/uL (0.8-4.8); Lymphocytes % 11.9 %; Mean Corpuscular Hemoglobin 29.8 pg (27-33); Monocytes # 0.8 10^3/uL (0.2-0.9); Monocytes % 8.3 %; Neutrophils # 7.33 10^3/uL (1.8-7.7); Neutrophils % 78.9 %; Nucleated Red Blood Cells % 0 %; Platelet Count 269 10^3/cmm (157-399)
[2023-07-31] MEDS: sodium chloride 0.9% 1,000 ML 999 ML IV ×2 (22:36→22:37)
[2023-07-31] MEDS: ondansetron 2 mg/ML SDV 2 mL 4 MG IVP (22:37)
[2023-07-31] MEDS: metoclopramide 5 mg/mL SDV 2 mL 10 MG IVP (22:40)
[2023-07-31 22:42] VITALS: RESP 18; O2SAT 98
[2023-07-31] MEDS: morphine 4 mg/mL SDV 1 mL IVP (22:42)
[2023-07-31 22:52] LABS: Alanine Aminotransferase 48 U/L (0-33); Albumin Level 4.1 g/dL (3.5-5.2); Alkaline Phosphatase 63 U/L (35-105); Aspartate Amino Transferase 31 U/L (0-32); Blood Urea Nitrogen 8 mg/dL (6-20); C Reactive Protein 12.3 mg/L (0.0-4.9); Calcium 9.2 mg/dL (8.5-10.5); Carbon Dioxide 18 mmol/L (22-29); Chloride 104 mmol/L (98-107); Globulin 3.9 g/dL (1.3-4.6); Glomerular Filtration Rate 101.1 mL/min (90-130); Glucose 126 mg/dL (65-115); Lipase 15 U/L (13-60); Magnesium 1.9 mg/dL (1.7-2.3); Osmolality Calculated 280 mOsm/kg (285-295); Sodium 135 mmol/L (136-145); Total Bilirubin 0.3 mg/dL (0.15-1.2)
[2023-07-31 22:54] LABS: Anion Gap 17.1 (5-19); Potassium 4.1 mmol/L (3.5-5.1)
[2023-08-01] MEDS: ondansetron 2 mg/ML SDV 2 mL 4 MG IVP (00:53)
[2023-08-01 00:55] VITALS: RESP 18
[2023-08-01] MEDS: morphine 4 mg/mL SDV 1 mL IVP (00:55)
[2023-08-01 01:00] LABS: Add Urine Microscopic? YES; Bilirubin Urine Neg (Negative); Blood Urine 3+ (Negative); Glucose Urine UA Norm (Normal); Ketones Urine Negative (Negative); Leukocyte Esterase Urine Negative (Negative); Nitrate Urine Negative (Negative); Protein Urine 1+ (Negative); Urine Appearance Hazy (CLEAR); Urine Color Orange (Yellow); Urobilinogen Urine Norm (Negative); pH Urine 5 (5-7)
[2023-08-01 01:01] LABS: Bacteria Urine TR /hpf; Squamous Epithelial Cell Urine 0-4 /hpf (0-5); WBC Urine 0-4 /hpf (0-5)
[2023-08-01 01:02] VITALS: BP 138/76; PULSE 88; O2SAT 98
[2023-08-01 01:02] LABS: Add Urine Culture? Yes; RBC Urine 50-80 /hpf (0-2)
[2023-08-01 01:11] LABS: Influenza A by IFA negative (Negative); Influenza B by IFA negative (Negative); SARS Covid-2 Antigen negative (Negative)
== END 2023-08-01 01:03 | disposition home or self-care (01) ==
PROVIDERS: Emergency Provider Emergency Medicine; PCP Family Medicine
DX: O99.611 Diseases of the digestive system complicating pregnancy, first trimester (principal); K52.9 Noninfective gastroenteritis and colitis, unspecified; Z11.52 Encounter for screening for COVID-19; Z3A.01 Less than 8 weeks gestation of pregnancy
CPT/HCPCS: 80053; 81001; 83690; 83735; 84702; 85025; 86140; 87086; 87426; 87804; 96361; 96374; 96375; 96376; 99284; J2270; J2405; J2765; J7030

== ENCOUNTER → 2023-08-03 13:11 | Outpatient (BNVA) | payer OTHER, SELFPAY | PROVIDERS: PCP Family Medicine; Visit Provider Family Medicine | DX: Z34.90 Encounter for supervision of normal pregnancy, unspecified, unspecified trimester (principal) | CPT/HCPCS: 84144; 87491; 87591; 87624 ==

== ENCOUNTER 2023-11-03 14:09 | Outpatient (CLI) | payer OTHER, SELFPAY ==
--- NOTE | 2023-11-03 14:15 | USR_ITS ---
PROCEDURE INFORMATION: Exam: US , Limited Exam date and time: 11/03/2023 2:31 PM Age: 28 years old Clinical indication: Screening exam; Routine US, uterus; Additional info: Anatomy US - 5 weeks from now LABS AND CLINICAL REPORTS: Gestational age (Established): 20 w 0 d Estimated due date (Established): 03/22/2024 TECHNIQUE: Imaging protocol: Real-time ultrasound of the maternal uterus with image documentation. Exam focused on the clinical indication. COMPARISON: US OB <= 14 weeks fetus [id number] 07/31/2023 3:09 PM FINDINGS: Single viable IUP in not reported presentation. heart rate is 150 bpm. Placenta is located anterior. Amniotic fluid volume is normal. Gestational age is 20 weeks 2 days with an JASON of 03/20/2024. Cervical length is 4.2 cm. anatomy: brain unremarkable. face unremarkable. heart unremarkable. RVOT and LVOT unremarkable. Umbilical cord and insertion unremarkable. Umbilical cord vessel number unremarkable. kidneys unremarkable. urinary bladder unremarkable. stomach unremarkable. spine unremarkable. extremities unremarkable. The following measurements were obtained: BPD 4.8 cm 20 weeks 3 days 68 percentile HC 17.8 cm 20 weeks 2 days 55 percentile AC 15.1 cm 20 weeks 2 days 55 percentile FL 3.3 cm 20 weeks 2 days 55 percentile EFW 346 grams 64 percentile US/US OB >= 14 weeks fetus [id number] Impression: Unremarkable single viable intrauterine gestation
== END 2023-11-03 14:10 | disposition home or self-care (01) ==
LOC: RAD 14:10
PROVIDERS: PCP Family Medicine; Visit Provider Family Medicine
DX: Z36.89 Encounter for other specified antenatal screening (principal)
CPT/HCPCS: 76805

== ENCOUNTER → 2023-12-03 12:39 | Outpatient (BNVA) | payer OTHER, SELFPAY | PROVIDERS: PCP Family Medicine; Visit Provider Family Medicine | DX: Z34.80 Encounter for supervision of other normal pregnancy, unspecified trimester (principal) | CPT/HCPCS: 82950 ==

== ENCOUNTER → 2024-01-04 13:54 | Outpatient (BNVA) | payer OTHER, SELFPAY | PROVIDERS: PCP Family Medicine; Visit Provider Family Medicine | DX: Z34.80 Encounter for supervision of other normal pregnancy, unspecified trimester (principal); I10 Essential (primary) hypertension | CPT/HCPCS: 82570; 84156 ==

== ENCOUNTER 2024-01-29 22:39 | Outpatient (CLI) | payer OTHER, SELFPAY ==
[2024-01-29 22:25] VITALS: BMI 41.6
[2024-01-29 22:53] VITALS: BP 145/76; PULSE 92
[2024-01-29 23:12] VITALS: BP 145/71; PULSE 70
[2024-01-29 23:24] VITALS: BP 140/68; PULSE 78
[2024-01-29 23:57] VITALS: BP 145/66; PULSE 67
[2024-01-30] VITALS (22 sets, daily range): BP systolic 117–199; BP diastolic 63–95; PULSE 69–90
--- NOTE | 2024-01-30 02:48 | USR_ITS ---
PROCEDURE INFORMATION: Exam: US , Limited Exam date and time: 01/30/2024 6:43 AM Age: 29 years old Clinical indication: Lmp or gestational age (in weeks): 32w4d; Antepartum complications; Other: Contractions; LABS AND CLINICAL REPORTS: Gestational age (Established): 32 w 4 d Estimated due date (Established): 03/22/2024 TECHNIQUE: Imaging protocol: Real-time ultrasound of the maternal uterus with image documentation. Exam focused on the clinical indication. COMPARISON: US OB >= 14 weeks fetus [id number] 11/03/2023 2:31 PM FINDINGS: Gestation: Single intrauterine gestation heart rate: 152 bpm. presentation and position: position is vertex. Placenta: Placenta is anterior fundal without of previa or abruption. US/US OB limited [id number] IMPRESSION: 1. Limited OB sonography. 2. position is vertex. 3. Anterior fundal placenta without evidence previa or abruption 4. heart rate 152 bpm.
[2024-01-30 03:46] LABS: Basophils % 0.2 %; Eosinophils # 0.3 10^3/uL (0.0-0.8); Eosinophils % 3.4 %; Hematocrit 35.1 % (36-47); Lymphocytes % 32.6 %; Mean Corpuscular HGB Conc 32.8 g/dL (30-55); Mean Corpuscular Hemoglobin 28.5 pg (27-33); Mean Corpuscular Volume 86.9 fl (85-98); Mean Platelet Volume 9.9 fL (7.4-10.4); Monocytes # 0.6 10^3/uL (0.2-0.9); Monocytes % 6.5 %; Neutrophils # 5.09 10^3/uL (1.8-7.7); Neutrophils % 56.4 %; Nucleated Red Blood Cells % 0 %; Platelet Count 287 10^3/cmm (157-399); Red Blood Count 4.04 10^6/uL (3.85-5.65); Red Cell Distribution Width 13.4 % (12.1-15.1); White Blood Count 9.04 10^3/uL (3.29-11.43)
[2024-01-30] MEDS: dextrose 5%-lactated ringers 1,000 ML 100 ML IV (03:49)
[2024-01-30 04:03] LABS: Alanine Aminotransferase 22 U/L (0-33); Albumin Level 3.4 g/dL (3.5-5.2); Alkaline Phosphatase 104 U/L (35-105); Blood Urea Nitrogen 7 mg/dL (6-20); Carbon Dioxide 19 mmol/L (22-29); Chloride 103 mmol/L (98-107); Creatinine Clr Calc Pharmacy 234.9319; Globulin 3.9 g/dL (1.3-4.6); Glucose 121 mg/dL (65-115); Osmolality Calculated 279 mOsm/kg (285-295); Sodium 135 mmol/L (136-145); Total Bilirubin 0.2 mg/dL (0.15-1.2); Total Protein 7.3 g/dL (6.6-8.7)
[2024-01-30 04:08] LABS: Anion Gap 17.1 (5-19); Aspartate Amino Transferase 22 U/L (0-32); Potassium 4.1 mmol/L (3.5-5.1)
--- NOTE | 2024-01-30 08:54 | PM.SDS ---
Short Stay Summary Providers Date of Admit/Discharge: 01/31/24 Attending Provider: Mark Lozano MD Primary Care Provider: Mark Lozano MD Chief Complaint: fell, cramping HPI History of Present Illness Eileen Bedolla is a 29 year @ 32.4 weeks by 6wk US inconsistent with LMP. Preg c/b obesity, IBS, h/o elevated 1-hr GTT, 1st TM bleeding, borderline BP. The patient was at her family's house and stepped off the cement onto the grass but the ground was uneven as they are working on building a new home and she fell and landed on her right knee and hands. She is unsure if her abdomen hit the ground or not, but over the next couple of hours she began to have increased cramping and pain in the right lower abdomen. For this reason she presented to labor and delivery triage. Initially, the patient did not have significant contractions, but they started to build after approximately 3 hours to where she was having them every 4 to 7 minutes. The contractions were rated a 2 out of 10 on the pain scale. She did not have any bleeding and her cervix was closed. Because of the increase in contractions it was felt best to monitor her overnight to be sure that she did not have an abruption. An ultrasound was done and no sign of placental abruption was noted. The patient's contractions are currently spaced out every 15 to 20 minutes and are not painful for the patient. They feel more like minimal irritability. She has pain in the right groin, however no pain over the uterus. She has some pain in her right knee but is able to ambulate without difficulty. At this time I feel that her risk for abruption is very low and her fall was a low risk fall since she did not have direct abdominal trauma. With her contractions decreasing and ultrasound looking good without any signs of bleeding, I believe it is safe to discharge her home. We gave her precautions on when to return in case bleeding picks up or her pain begins to worsen again. She is to decrease her overall activity for the next couple of days and push fluids. We will follow-up with her on Thursday as previously scheduled as well. All questions were answered. The patient and her are in agreement with current plan of care. Review of Systems Narrative: General: Denies fevers, chills, fatigue, malaise. Ears/Nose/Throat: Denies nasal congestion, sore throat. Cardiovascular: Denies chest pains, peripheral edema. Respiratory: Denies cough, wheezing. Gastrointestinal: Denies nausea, vomiting, diarrhea, constipation Genitourinary: Denies dysuria. Skin: Denies rash. Home Meds/Allergies Home Medications and Allergies Home Medications Medication Instructions Recorded Confirmed Type bran 500 mg tablet 1 mg PO DAILY 11/04/22 01/30/24 History cetirizine 10 mg tablet 10 mg PO DAILY 01/30/24 01/30/24 History vitamin 1 tab PO DAILY 01/30/24 01/30/24 History no.76-iron,carbonyl 29 mg iron-folic acid 1 mg tablet Allergies Allergy/AdvReac Type Severity Reaction Status Date / Time No Known Allergies Allergy Verified 01/30/24 02:02 PFSH Acute PFSH: Medical History Migraine with aura Anxiety Takes hydroxyzine as needed. Managed by primary care provider Dr. Lozano. H/O cardiac arrhythmia Reports having PVCs and during this time had elevated blood pressure and was placed on metoprolol. This was being managed by primary care provider at that time Dr. Romero. She states that since 2018 in 2018 since anxiety and stress improved she has not had these symptoms. She is asymptomatic at this time but will have symptoms with elevated BP. Irritable bowel Diagnosed in 2015 with a colonoscopy--anxiety and stress make it worse. She is on probiotics for this. Started desipramine by her primary care provider in May 2020 as well No pertinent past medical history Denies diabetes, asthma, hypertension, seizures, DVT/PE PCP: Dr. 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 Lozano S/P tonsillectomy and adenoidectomy As a child S/P appendectomy 2011--laparoscopic procedure Family History Family/Other Colon cancer maternal great grandmother-- dx age unknown Mother Thyroid disease Diabetes Grandmother Heart disease maternal and paternal Diabetes paternal Grandfather Diabetes maternal Denies family history of Ovarian cancer Hyperlipidemia Breast cancer Hypertension Uterine cancer Stroke Social History Smoking and tobacco/nicotine status: never used tobacco/nicotine Alcohol intake: never Substance/Drug Use: never Marital status: Education level details: Accounting Current occupation: Works at [employer] Female Reproductive History: : 2 Vitals/I&O/Wt Last Vital Signs Pulse 75 01/30/24 08:36 BP 132/63 01/30/24 08:36 Weight last 48 hrs Weight 273 lb 15.989 oz Physical Exam Narrative: General: Alert and oriented x3 Eyes: Pupils equal round and reactive to light and accommodation Mouth: Mucous membranes moist, pharynx non-erythematous Cardiac: Regular rate and rhythm without murmurs Lungs: Clear to auscultation bilaterally without wheezes, crackles or rhonchi Abdomen: Soft, no significant tenderness over the uterus. Minimal tenderness in the right lower quadrant that is especially over the right groin and into the right quadriceps muscle. Fundus consistent with gestational age Extremities: Trace edema in the bilateral lower extremities. There is mild tenderness over the right knee With mild swelling present. Minimal bruising present. Grass stain present. SSS Data Data Completed and Pending: Completed Studies During Hospitalization Category Date Time Status US OB limited [id number] Routine Ultrasound 01/30/24 02:48 Completed Diagnoses at Discharge Other Information Additional DC diagnoses/information: 1. Intrauterine at 32.4 weeks gestation 2. Status post fall with abdominal trauma and associated contractions without signs of placental abruption. 3. Obesity 4. Borderline blood pressure Discharge Plan Discharge Patient Disposition: Home Prescriptions: No Action bran 500 mg tablet 1 mg PO DAILY azithromycin 250 mg tablet See Rx Instructions PO .COMPLEX Qty: 6 0RF Rx Instructions: For 250 mg dose pack: take 500 mg today (day 1), then 250 mg for 4 days (days 2-5) PO cetirizine 10 mg Tablet 10 mg PO DAILY PNV 29-1 29 mg iron- 1 mg Tablet 1 tab PO DAILY Discharge Orders: Discharge Order (Routine); Ordered 01/30/24 Ordered By: Mark Lozano Referrals: Mark Lozano MD [Primary Care Provider] - 02/01/24 Diet: Regular Activity: Limit activity as instructed Patient Instructions: Labor (DC), Preeclampsia During (DC), Kick Counts in (DC), OB Undelivered Discharge Activity Restrictions/Additional Instructions: Keep overall activity and decrease for the next day or 2 and push fluids. If her contractions become painful, or if you have vaginal bleeding or significant abdominal pain, return to OB for reevaluation right away. Discharge Date/Time: 01/30/24 09:24 Attestations Medical Necessity Statement*: The patient was here for observation due to a fall and abdominal trauma with . Her stay will not cross 2 midnights. Time Spent in Patient Care*: greater than 30 min Quality Metrics Clinical Quality Measures: [ No reported AMI, CVA or VTE this stay] Coding Level of Care Code Acute Code for Chg Fwd
== END 2024-01-30 09:24 | disposition home or self-care (01) ==
LOC: OPOB 22:40 → OBGYN 22:41
PROVIDERS: PCP Family Medicine; Visit Provider Family Medicine
DX: O26.899 Other specified pregnancy related conditions, unspecified trimester (principal); Z3A.32 32 weeks gestation of pregnancy; Z91.81 History of falling; O99.213 Obesity complicating pregnancy, third trimester; R03.0 Elevated blood-pressure reading, without diagnosis of hypertension
CPT/HCPCS: 36415; 59025; 76815; 80053; 85025; 86850; 86900; 99211; J7121

== ENCOUNTER → 2024-02-15 14:08 | Outpatient (BNVA) | payer OTHER, SELFPAY | PROVIDERS: PCP Family Medicine; Visit Provider Family Medicine | DX: Z51.81 Encounter for therapeutic drug level monitoring (principal); R03.0 Elevated blood-pressure reading, without diagnosis of hypertension | CPT/HCPCS: 80053; 82570; 84156; 84550; 85025 ==

== ENCOUNTER 2024-02-18 10:36 | Outpatient (CLI) | payer OTHER, SELFPAY ==
--- NOTE | 2024-02-18 10:45 | US_ITS ---
WS: [id number] LIMITED OBSTETRICAL ULTRASOUND HISTORY: BLANCA/EFW - This week if possible COMPARISON: 07/31/2023, 11/03/2023 Presentation: Vertex. Cervix: Obscured by the head. Placenta: Anterior, no previa or abruption. Grade: 1 HEART: FHR of 136 BPM. measurements: BPD = 9.4 cm = 38w3d; greater than the 97th percentile HC = 33.8 cm = 38w5d; 92nd percentile AC = 34.8 cm = 38w5d; greater than the 97th percentile FL = 7.4 cm = 38w1d; 97th percentile BLANCA: 16.5 cm EFW: 3519.4 g; 97.0 % AGA by ultrasound: 38w4d JASON by ultrasound: 02/28/2024 US/US OB limited [id number] IMPRESSION: 1. Single intrauterine gestation of 38w4d with an JASON of 02/28/2024. Fetus is measuring within 8 days of the previously determined gestational age. 2. Biometry demonstrates large for gestational age fetus. Symmetric enlargemen t of the fetus. 3. Estimated weight at the 97th percentile for age. 4. Normal amniotic fluid.
== END 2024-02-18 10:37 | disposition home or self-care (01) ==
LOC: RAD 10:36
PROVIDERS: PCP Family Medicine; Visit Provider Family Medicine
DX: Z34.80 Encounter for supervision of other normal pregnancy, unspecified trimester (principal); I10 Essential (primary) hypertension
CPT/HCPCS: 76815

== ENCOUNTER 2024-02-21 21:50 | Outpatient (CLI) | payer OTHER, SELFPAY ==
[2024-02-21] VITALS (10 sets, daily range): BP systolic 141–179; BP diastolic 75–90; PULSE 67–95; BMI 44.5
[2024-02-21 22:43] LABS: Charge for UA Resulting for Rev
[2024-02-21 22:51] LABS: Basophils % 0.3 %; Eosinophils # 0.3 10^3/uL (0.0-0.8); Eosinophils % 2.4 %; Hematocrit 31.2 % (36-47); Lymphocytes # 2.1 10^3/uL (0.8-4.8); Lymphocytes % 20.1 %; Mean Corpuscular HGB Conc 34.6 g/dL (30-55); Mean Corpuscular Hemoglobin 29.6 pg (27-33); Mean Corpuscular Volume 85.5 fl (85-98); Mean Platelet Volume 9.8 fL (7.4-10.4); Monocytes # 0.9 10^3/uL (0.2-0.9); Monocytes % 8.5 %; Neutrophils # 7.09 10^3/uL (1.8-7.7); Nucleated Red Blood Cells % 0 %; Platelet Count 222 10^3/cmm (157-399); Red Blood Count 3.65 10^6/uL (3.85-5.65); White Blood Count 10.41 10^3/uL (3.29-11.43)
[2024-02-21 22:55] LABS: Add Urine Microscopic? NO; Bilirubin Urine Neg (Negative); Blood Urine Neg (Negative); Glucose Urine UA Norm (Normal); Ketones Urine Negative (Negative); Leukocyte Esterase Urine Negative (Negative); Nitrate Urine Negative (Negative); Protein Urine Neg (Negative); Urine Appearance Clear (CLEAR); Urine Color Yellow (Yellow); Urobilinogen Urine Neg (Negative); pH Urine 7 (5-7)
[2024-02-21 23:08] LABS: Alanine Aminotransferase 12 U/L (0-33); Albumin Level 3.3 g/dL (3.5-5.2); Alkaline Phosphatase 113 U/L (35-105); Anion Gap 16.5 (5-19); Aspartate Amino Transferase 19 U/L (0-32); Blood Urea Nitrogen 7 mg/dL (6-20); Calcium 8.4 mg/dL (8.5-10.5); Carbon Dioxide 18 mmol/L (22-29); Chloride 109 mmol/L (98-107); Creatinine Clr Calc Pharmacy 174.3788; Globulin 3.1 g/dL (1.3-4.6); Glomerular Filtration Rate 100.4 mL/min (90-130); Glucose 112 mg/dL (65-115); Osmolality Calculated 289 mOsm/kg (285-295); Potassium 3.5 mmol/L (3.5-5.1); Sodium 140 mmol/L (136-145); Total Bilirubin 0.2 mg/dL (0.15-1.2); Total Protein 6.4 g/dL (6.6-8.7); Uric Acid 4.3 mg/dL (2.4-5.7)
[2024-02-21 23:14] LABS: Urine Creatinine 25 mg/dL (28-217); Urine Protein Random 4 mg/dL
[2024-02-21 23:20] LABS: UPRO/UCREAT Ratio 0.16 mg/mg CR
[2024-02-22] VITALS (11 sets, daily range): BP systolic 140–170; BP diastolic 69–80; PULSE 66–81; RESP 16; TEMP 36.7
--- NOTE | 2024-02-22 00:20 | P.SS_ITS ---
Short Stay Summary Providers Date of Admit/Discharge: 02/22/24 Attending Provider: Mark Lozano MD Primary Care Provider: Mark Lozano MD Chief Complaint: elevated blood pressure/ctx HPI History of Present Illness Eileen Bedolla is a 29 year old @ 35.6 weeks by 6wk US inconsistent with LMP. Preg c/b obesity, IBS, h/o elevated 1-hr GTT, 1st TM bleeding, cHTN. The patient presented to L&D triage with concern for elevated BP. She had developed an earache and went to on the am of 02/21/24. She was diagnosed with an ear infection and started on Amoxicillin. She took Tylenol to help with the pain. She had a busy weekend with multiple different events. She then took her BP and it was in the 150/100 range. She re-took it and it went as high as 165/100. She decided to come to triage for further evaluation. Initially upon arrival, her BP was elevated up to 179/90, but it gradually improved with bedrest and without needing any medications. She currently denies any chest pains, shortness of breath, nausea, flashes of light, headache (Other than the right ear pain). Review of Systems Narrative: General: Denies fevers, chills, fatigue, malaise. Ears/Nose/Throat: Denies sore throat. Cardiovascular: Denies chest pains, peripheral edema. Respiratory: Denies cough, wheezing. Gastrointestinal: Denies nausea, vomiting, diarrhea, constipation, abdominal pain. Genitourinary: Denies dysuria. Skin: Denies rash. Home Meds/Allergies Home Medications and Allergies Home Medications Medication Instructions Recorded Confirmed Type 1 tab PO DAILY 02/21/24 02/21/24 History Probiotic 1 cap PO DAILY 02/21/24 02/21/24 History Zyrtec 1 tab PO PRN PRN allergies 02/21/24 02/21/24 History Allergies Allergy/AdvReac Type Severity Reaction Status Date / Time No Known Allergies Allergy Verified 02/21/24 22:21 PFSH Acute PFSH: Medical History Migraine with aura Anxiety Takes hydroxyzine as needed. Managed by primary care provider Dr. Lozano. H/O cardiac arrhythmia Reports having PVCs and during this time had elevated blood pressure and was placed on metoprolol. This was being managed by primary care provider at that time Dr. Romero. She states that since 2018 in 2018 since anxiety and stress improved she has not had these symptoms. She is asymptomatic at this time but will have symptoms with elevated BP. Irritable bowel Diagnosed in 2015 with a colonoscopy--anxiety and stress make it worse. She is on probiotics for this. Started desipramine by her primary care provider in May 2020 as well No pertinent past medical history Denies diabetes, asthma, hypertension, seizures, DVT/PE PCP: Dr. 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 Lozano S/P tonsillectomy and adenoidectomy As a child S/P appendectomy 2011--laparoscopic procedure Family History Family/Other Colon cancer maternal great grandmother-- dx age unknown Mother Thyroid disease Diabetes Grandmother Heart disease maternal and paternal Diabetes paternal Grandfather Diabetes maternal Denies family history of Ovarian cancer Hyperlipidemia Breast cancer Hypertension Uterine cancer Stroke Social History Smoking and tobacco/nicotine status: never used tobacco/nicotine Alcohol intake: never Substance/Drug Use: never Marital status: Education level details: Accounting Current occupation: Works at [employer] Vitals/I&O/Wt Last Vital Signs Pulse 71 02/22/24 00:13 BP 147/80 02/22/24 00:13 Weight last 48 hrs Weight 293 lb Physical Exam Narrative: General: Alert and oriented x3 Eyes: Pupils equal round and reactive to light and accommodation Ears: Right canal is swollen with mild clear/white discharge. TM difficult to visualize but portion that is visualized is mildly erythemetous. Left TM and canal normal. Mouth: Mucous membranes moist, pharynx non-erythematous Cardiac: Regular rate and rhythm without murmurs Lungs: Clear to auscultation bilaterally without wheezes, crackles or rhonchi Abdomen: Soft, non-tender, fundus larger than expected for gestational age Extremities: +1 edema in the bilateral lower extremities Hospital Course Admission Diagnoses 1. Intrauterine at 35.5 weeks gestation. 2. Chronic Hypertension 3. Obesity 4. History of LTCS Hospital Course The patient was watched in OB triage and her BP's gradually improved without any medications. Her labs came back looking good overall with Platelets, Uric acid, transaminases in good ranges. Her urine protein/creatinine ratio was a little higher at 0.16. Her BP's are now down in the 140's over 60-70's and she appears comfortable without any distress. I believe that her elevated BP may have been related to her ear infection paired with Tylenol, her busy weekend plans and anxiety that it was moving up. It is doing well at this stage and we will plan to treat this conservatively due to her gestational age and since her BP's have improved on their own so well. She has underlying chronic HTN and we will start her on Labetalol 50mg BID at this time to help manage this better. First dose given tonight in triage before discharge. She was given precautions to return if getting symptoms of headache, nausea, flashes of light, chest pains or shortness of breath or BP's 160/110. She and her expressed verbal understanding. She is scheduled for an NST and US on Thursday and will get NST's twice a week and US's once a week for monitoring. Discharge Plan Discharge Patient Disposition: Home Prescriptions: No Action amoxicillin 500 mg tablet 1,000 mg PO BID 10 Days Qty: 40 0RF 1 tab PO DAILY Probiotic 1 cap PO DAILY Zyrtec 1 tab PO PRN PRN (Reason: allergies) Diet: Regular Activity: Limit activity as instructed Activity Restrictions/Additional Instructions: I would recommend that you move to cancel plans and be off of work until after delivery in order to help keep your BP in a controlled range and decrease risk of complications. Please return to OB if your BP is getting above 160/110 at rest, or if you are having chest pains, shortness of breath, Headaches or flashes of light. Attestations Medical Necessity Statement*: The patient is here for less than one midnight for observation with cHTN in . Time Spent in Patient Care*: greater than 30 min Quality Metrics Clinical Quality Measures: [ No reported AMI, CVA or VTE this stay ] Coding Level of Care Code Acute Code for Chg Fwd
[2024-02-22] MEDS: labetalol 200 mg Tablet 50 MG PO (00:51)
[2024-02-22] MEDS: acetaminophen 500 mg Tablet PO (00:51)
[2024-02-23 08:13] LABS: Total Volume, Urine 4300 mL
[2024-02-23 08:37] LABS: Urine Total Protein 5.7 mg/dL (0-150)
[2024-02-23 08:38] LABS: Urine Total Protein 24 Hour 245.1 mg/24hr (0-150)
== END 2024-02-22 02:15 | disposition home or self-care (01) ==
LOC: OPOB 21:56 → OBGYN 21:58
PROVIDERS: PCP Family Medicine; Visit Provider Family Medicine
DX: O16.9 Unspecified maternal hypertension, unspecified trimester (principal); Z3A.35 35 weeks gestation of pregnancy; O99.213 Obesity complicating pregnancy, third trimester
CPT/HCPCS: 36415; 59025; 80053; 81003; 82570; 84156; 84550; 85025; 87081; 99211

== ENCOUNTER 2024-02-24 08:45 | Outpatient (CLI) | payer OTHER, SELFPAY ==
--- NOTE | 2024-02-25 09:58 | USR_ITS ---
PROCEDURE INFORMATION: Exam: US , Limited Exam date and time: 02/25/2024 10:02 AM Age: 29 years old Clinical indication: Screening exam; Routine US, uterus; Additional info: Chtn - weekly bpp/marisol starting week of 02/21 x 4 LABS AND CLINICAL REPORTS: Gestational age (Established): 36 w 2 d Estimated due date (Established): 03/22/2024 TECHNIQUE: Imaging protocol: Real-time ultrasound of the maternal uterus with image documentation. Exam focused on the clinical indication. COMPARISON: US OB limited [id number] 02/18/2024 10:46 AM FINDINGS: Gestation: Single live intrauterine gestation. heart rate: 135 bpm. Amniotic fluid index: 14.21 cm. MATERNAL: Cervix: Cervical length measures 4 cm. US/US OB limited [id number] IMPRESSION: 1. Single live intrauterine gestation 2. Biophysical profile score 8/8.
== END 2024-02-25 09:54 | disposition home or self-care (01) ==
LOC: RAD 02-25 09:54
PROVIDERS: PCP Family Medicine; Visit Provider Family Medicine
DX: Z34.80 Encounter for supervision of other normal pregnancy, unspecified trimester (principal); I10 Essential (primary) hypertension
CPT/HCPCS: 76815

== ENCOUNTER 2024-02-25 11:53 | Outpatient (CLI) | payer OTHER, SELFPAY ==
[2024-02-25 12:09] VITALS: BP 145/76; PULSE 76
[2024-02-25 12:19] VITALS: BP 132/69; PULSE 76
[2024-02-25 12:28] VITALS: BMI 43.4
[2024-02-25 12:29] VITALS: BP 138/69; PULSE 81
[2024-02-25 12:39] VITALS: BP 139/66; PULSE 82
== END 2024-02-25 12:55 | disposition home or self-care (01) ==
LOC: OPOB 11:54 → OBGYN 12:07
PROVIDERS: PCP Family Medicine; Visit Provider Family Medicine
DX: O16.9 Unspecified maternal hypertension, unspecified trimester (principal); Z3A.00 Weeks of gestation of pregnancy not specified
CPT/HCPCS: 59025

== ENCOUNTER 2024-02-29 12:48 | Outpatient (CLI) | payer OTHER, SELFPAY ==
[2024-02-29] VITALS (8 sets, daily range): BP systolic 139–168; BP diastolic 76–88; PULSE 78–83; BMI 43.9
[2024-02-29 14:05] LABS: Basophils % 0.3 %; Eosinophils # 0.2 10^3/uL (0.0-0.8); Hematocrit 33.1 % (36-47); Lymphocytes # 2.1 10^3/uL (0.8-4.8); Lymphocytes % 27.8 %; Mean Corpuscular HGB Conc 33.8 g/dL (30-55); Mean Corpuscular Hemoglobin 28.7 pg (27-33); Mean Corpuscular Volume 84.9 fl (85-98); Mean Platelet Volume 9.8 fL (7.4-10.4); Monocytes # 0.6 10^3/uL (0.2-0.9); Monocytes % 8.3 %; Neutrophils # 4.59 10^3/uL (1.8-7.7); Neutrophils % 60.3 %; Nucleated Red Blood Cells % 0 %; Platelet Count 304 10^3/cmm (157-399); Red Cell Distribution Width 13.9 % (12.1-15.1)
[2024-02-29 14:13] LABS: Bilirubin Urine Negative (Negative); Blood Urine Negative (Negative); Glucose Urine UA Negative (Normal); Ketones Urine 1+ (Negative); Leukocyte Esterase Urine Negative (Negative); Nitrate Urine Negative (Negative); Protein Urine Negative (Negative); Specific Gravity, Urine 1.016 (1.005-1.030); Urine Appearance Clear (CLEAR); Urine Color Yellow (Yellow)
[2024-02-29 14:20] LABS: Bacteria Urine None Seen /hpf; Hyaline Casts Urine 0-4 /lpf; RBC Urine 0-2 /hpf (0-2); Squamous Epithelial Cell Urine 0-5 /hpf (0-5); WBC Urine 0-5 /hpf (0-5)
[2024-02-29 14:24] LABS: Alanine Aminotransferase 32 U/L (0-33); Albumin Level 3.6 g/dL (3.5-5.2); Alkaline Phosphatase 137 U/L (35-105); Anion Gap 19.5 (5-19); Aspartate Amino Transferase 27 U/L (0-32); Blood Urea Nitrogen 8 mg/dL (6-20); Carbon Dioxide 18 mmol/L (22-29); Chloride 105 mmol/L (98-107); Globulin 3.4 g/dL (1.3-4.6); Glucose 94 mg/dL (65-115); Osmolality Calculated 286 mOsm/kg (285-295); Potassium 3.5 mmol/L (3.5-5.1); Sodium 139 mmol/L (136-145); Total Bilirubin 0.3 mg/dL (0.15-1.2); Uric Acid 4.4 mg/dL (2.4-5.7)
[2024-02-29 14:29] LABS: Urine Creatinine 85 mg/dL (28-217); Urine Protein Random 11 mg/dL
[2024-02-29 14:49] LABS: UPRO/UCREAT Ratio 0.13 mg/mg CR
== END 2024-02-29 15:00 ==
LOC: OPOB 12:52 → OBGYN 12:53
PROVIDERS: Family Medicine; PCP Family Medicine; Visit Provider Family Medicine
DX: O16.9 Unspecified maternal hypertension, unspecified trimester (principal); Z3A.00 Weeks of gestation of pregnancy not specified
CPT/HCPCS: 36415; 59025; 80053; 81001; 82570; 84156; 84550; 85025; 99211

== ENCOUNTER 2024-03-01 12:43 | Outpatient (CLI) | payer OTHER, SELFPAY ==
--- NOTE | 2024-03-01 12:45 | USR_ITS ---
PROCEDURE INFORMATION: Exam: US , Limited Exam date and time: 03/01/2024 1:40 PM Age: 29 years old Clinical indication: Screening exam; Routine US, uterus; Additional info: Bpp with blanca LABS AND CLINICAL REPORTS: Gestational age (Established): 37 w 0 d Estimated due date (Established): 03/22/2024 TECHNIQUE: Imaging protocol: Real-time ultrasound of the maternal uterus with image documentation. Exam focused on the clinical indication. COMPARISON: OB limited [id number] 02/25/2024 10:02 AM FINDINGS: Gestation: Evidence of single intrauterine gestation in cephalic position. heart rate: 132 bpm. heart rate measured at 132 bpm. Amniotic fluid (Qualitative): Vertical measurements of amniotic fluid of 4 quadrants: RUQ 3.10 cm, RLQ 4.22 cm, LUQ 2.60 cm, LLQ 2.36 cm, for total amniotic fluid index (BLANCA) 11.29 cm. Amniotic fluid index: BLANCA is 11.29 cm. BIOPHYSICAL PROFILE: Biophysical profile score (BPP): Biophysical profile score total 8 of 8. US/ OB limited [id number] IMPRESSION: 1. Biophysical profile score total 8 of 8. 2. BLANCA measured at 11.29 cm.
== END 2024-03-01 12:44 | disposition home or self-care (01) ==
LOC: RAD 12:44
PROVIDERS: PCP Family Medicine; Visit Provider Family Medicine
DX: Z34.80 Encounter for supervision of other normal pregnancy, unspecified trimester (principal); I10 Essential (primary) hypertension
CPT/HCPCS: 76815

== ENCOUNTER 2024-03-03 14:03 | Outpatient (CLI) | payer OTHER, SELFPAY ==
[2024-03-03 14:14] VITALS: BP 168/80; PULSE 80
[2024-03-03 14:35] VITALS: BP 154/72; PULSE 84
[2024-03-03 14:55] VITALS: BP 146/72; PULSE 80
[2024-03-03 15:14] VITALS: BP 138/78; PULSE 77
[2024-03-03 15:23] LABS: UPRO/UCREAT Ratio 0.12 mg/mg CR; Urine Creatinine 112 mg/dL (28-217); Urine Protein Random 13 mg/dL
[2024-03-03 15:34] VITALS: BP 147/80; PULSE 65
== END 2024-03-03 15:50 | disposition home or self-care (01) ==
LOC: OPOB 14:04 → OBGYN 14:06
PROVIDERS: PCP Family Medicine; Visit Provider Family Medicine
DX: O26.899 Other specified pregnancy related conditions, unspecified trimester (principal); Z3A.00 Weeks of gestation of pregnancy not specified
CPT/HCPCS: 59025; 82570; 84156; 99211

== ENCOUNTER 2024-03-04 23:42 | Outpatient (CLI) | payer OTHER, SELFPAY ==
[2024-03-04 23:46] VITALS: BMI 44.6
[2024-03-04 23:56] VITALS: BP 147/83; PULSE 75
[2024-03-05 00:11] VITALS: BP 140/79; PULSE 75
[2024-03-05 00:36] VITALS: BP 140/79; PULSE 75; RESP 16
== END 2024-03-05 00:36 | disposition home or self-care (01) ==
LOC: OPOB 23:42 → OBGYN 23:44
PROVIDERS: PCP Family Medicine; Visit Provider Family Medicine
DX: O16.9 Unspecified maternal hypertension, unspecified trimester (principal); Z3A.00 Weeks of gestation of pregnancy not specified
CPT/HCPCS: 59025; 99211

== ENCOUNTER 2024-03-07 13:05 | Outpatient (CLI) | payer OTHER, SELFPAY ==
[2024-03-07 13:05] VITALS: BMI 44.4
[2024-03-07 13:32] VITALS: BP 143/100; PULSE 80
[2024-03-07 13:46] VITALS: BP 140/76; PULSE 83
[2024-03-07 14:00] VITALS: BP 146/80; PULSE 81
== END 2024-03-07 14:10 | disposition home or self-care (01) ==
LOC: OPOB 13:15 → OBGYN 13:16
PROVIDERS: PCP Family Medicine; Visit Provider Family Medicine
DX: O16.9 Unspecified maternal hypertension, unspecified trimester (principal); Z3A.00 Weeks of gestation of pregnancy not specified
CPT/HCPCS: 59025; 99211

== ENCOUNTER 2024-03-09 09:22 | Outpatient (CLI) | payer OTHER, SELFPAY | END 2024-03-09 09:23 | disposition home or self-care (01) | LOC: RAD 09:22 | PROVIDERS: PCP Family Medicine; Visit Provider Family Medicine | DX: Z34.80 Encounter for supervision of other normal pregnancy, unspecified trimester (principal); I10 Essential (primary) hypertension | CPT/HCPCS: 76816; 76819; 84156 ==

== ENCOUNTER 2024-03-10 14:14 | Outpatient (CLI) | payer OTHER, SELFPAY ==
[2024-03-10 14:15] VITALS: BMI 45.0
[2024-03-10 14:19] VITALS: RESP 18
[2024-03-10 14:20] VITALS: BP 141/70; PULSE 77
[2024-03-10 14:40] VITALS: BP 138/66; PULSE 76
== END 2024-03-10 14:53 | disposition home or self-care (01) ==
LOC: OPOB 14:14 → OBGYN 14:16
PROVIDERS: PCP Family Medicine; Visit Provider Family Medicine
DX: O26.899 Other specified pregnancy related conditions, unspecified trimester (principal); Z3A.00 Weeks of gestation of pregnancy not specified
CPT/HCPCS: 59025

== ENCOUNTER 2024-03-13 20:51 | Outpatient (CLI) | payer OTHER, SELFPAY ==
[2024-03-13] VITALS (10 sets, daily range): BP systolic 132–167; BP diastolic 73–91; PULSE 76–88; RESP 17; BMI 44.5
[2024-03-13 21:54] LABS: Charge for UA Resulting for Rev
[2024-03-13 21:59] LABS: Basophils % 0.3 %; Eosinophils # 0.2 10^3/uL (0.0-0.8); Hematocrit 32.9 % (36-47); Lymphocytes # 2.3 10^3/uL (0.8-4.8); Lymphocytes % 29.9 %; Mean Corpuscular Hemoglobin 29.2 pg (27-33); Mean Corpuscular Volume 85.7 fl (85-98); Mean Platelet Volume 9.8 fL (7.4-10.4); Monocytes # 0.7 10^3/uL (0.2-0.9); Monocytes % 8.8 %; Neutrophils # 4.46 10^3/uL (1.8-7.7); Neutrophils % 58.3 %; Nucleated Red Blood Cells % 0 %; Platelet Count 305 10^3/cmm (157-399); Red Blood Count 3.84 10^6/uL (3.85-5.65); Red Cell Distribution Width 14.5 % (12.1-15.1); White Blood Count 7.63 10^3/uL (3.29-11.43)
[2024-03-13 22:03] LABS: Bilirubin Urine Negative (Negative); Blood Urine Negative (Negative); Glucose Urine UA 1+ (Normal); Ketones Urine Trace (Negative); Leukocyte Esterase Urine Trace (Negative); Nitrate Urine Negative (Negative); Protein Urine Trace (Negative); Specific Gravity, Urine 1.021 (1.005-1.030); Urine Appearance Clear (CLEAR); Urine Color Yellow (Yellow)
[2024-03-13 22:08] LABS: Bacteria Urine Trace /hpf; RBC Urine 0-2 /hpf (0-2); WBC Urine 0-5 /hpf (0-5)
[2024-03-13 22:20] LABS: Alanine Aminotransferase 17 U/L (0-33); Aspartate Amino Transferase 16 U/L (0-32); Chloride 105 mmol/L (98-107); Sodium 137 mmol/L (136-145); Uric Acid 3.8 mg/dL (2.4-5.7)
[2024-03-13 22:22] LABS: Urine Creatinine 137 mg/dL (28-217)
[2024-03-13 22:23] LABS: UPRO/UCREAT Ratio 0.16 mg/mg CR; Urine Protein Random 22 mg/dL
[2024-03-13 22:32] LABS: Albumin Level 3.4 g/dL (3.5-5.2); Alkaline Phosphatase 126 U/L (35-105); Anion Gap 18.3 (5-19); Blood Urea Nitrogen 7 mg/dL (6-20); Calcium 8.6 mg/dL (8.5-10.5); Carbon Dioxide 17 mmol/L (22-29); Creatinine Clr Calc Pharmacy 244.1303; Glucose 136 mg/dL (65-115); Osmolality Calculated 284 mOsm/kg (285-295); Potassium 3.3 mmol/L (3.5-5.1); Total Bilirubin 0.2 mg/dL (0.15-1.2); Total Protein 6.4 g/dL (6.6-8.7)
== END 2024-03-13 23:08 | disposition home or self-care (01) ==
LOC: OPOB 20:51 → OBGYN 20:52
PROVIDERS: PCP Family Medicine; Visit Provider Family Medicine
DX: O16.9 Unspecified maternal hypertension, unspecified trimester (principal); Z3A.00 Weeks of gestation of pregnancy not specified
CPT/HCPCS: 36415; 59025; 80053; 81003; 81015; 82570; 84156; 84550; 85025; 99211

== ENCOUNTER → 2024-03-14 12:01 | Outpatient (BNVA) | payer OTHER, SELFPAY | PROVIDERS: PCP Family Medicine; Visit Provider Family Medicine | DX: Z34.90 Encounter for supervision of normal pregnancy, unspecified, unspecified trimester (principal); Z3A.00 Weeks of gestation of pregnancy not specified | CPT/HCPCS: 76819 ==

== ENCOUNTER 2024-03-14 12:45 | Outpatient (CLI) | payer OTHER, SELFPAY ==
[2024-03-14 13:01] VITALS: BMI 44.6
[2024-03-14 13:11] VITALS: BP 139/73; PULSE 88
[2024-03-14 13:23] VITALS: BP 149/77; PULSE 85
[2024-03-14 13:30] VITALS: BP 149/77; PULSE 85
== END 2024-03-14 13:32 ==
LOC: OPOB 12:48 → OBGYN 12:57
PROVIDERS: PCP Family Medicine; Visit Provider Family Medicine
DX: O16.9 Unspecified maternal hypertension, unspecified trimester (principal); Z3A.00 Weeks of gestation of pregnancy not specified
CPT/HCPCS: 59025

== ENCOUNTER 2024-03-16 05:08 | Inpatient (IN) | payer OTHER, SELFPAY ==
--- NOTE | 2024-03-08 08:24 | P.ANESASSM_ITS ---
Pre-Anesthetic Assessment Height/Weight: Height 1.73 m Operation Date: 03/16/24 07:20 Proposed Procedures p Section Repeat 92988, O34.219(Not Applicable) - Mark Lozano MD Familial anesthetic complications: During her last labor her epidural did not work well and required replacement. This also did not work well and when she went to they took it out and performed a spinal, which also did not work, so they performed GETA. Possible that spinal CSF was actually epidural solution. Was Beta Marysol taken within 24 hours: N/A Was Clonidine taken within 24 hours: N/A Social No alcohol and No tobacco Exam alert, oriented x 3, clear to auscultation bilaterally and regular rate & rhythm Airway Mallampati: Class IV Dentition: chipped CV/HEM Hypertension Metabolic Morbid Obesity Anesthetic Plan ASA status: 2 Anesthesia: Regional (specify below) Medications/Allergies Home Medications Medication Instructions Recorded Confirmed Last Taken Type 1 tab PO DAILY 02/21/24 03/07/24 03/07/24 08:00 History labetalol 100 mg tablet 100 mg PO BID 03/05/24 03/07/24 03/07/24 08:00 History Allergies Allergy/AdvReac Type Severity Reaction Status Date / Time No Known Allergies Allergy Verified 02/25/24 11:01 [facility] Anesthesia Medical History Migraine with aura Anxiety Takes hydroxyzine as needed. Managed by primary care provider Dr. Lozano. H/O cardiac arrhythmia Reports having PVCs and during this time had elevated blood pressure and was placed on metoprolol. This was being managed by primary care provider at that time Dr. Romero. She states that since 2017 in 2018 since anxiety and stress improved she has not had these symptoms. She is asymptomatic at this time but will have symptoms with elevated BP. Irritable bowel Diagnosed in 2015 with a colonoscopy--anxiety and stress make it worse. She is on probiotics for this. Started desipramine by her primary care provider in May 2020 as well No pertinent past medical history Denies diabetes, asthma, hypertension, seizures, DVT/PE PCP: Dr. 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 Lozano S/P tonsillectomy and adenoidectomy As a child S/P appendectomy 2011--laparoscopic procedure Family History Family/Other Colon cancer maternal great grandmother-- dx age unknown Mother Thyroid disease Diabetes Grandmother Heart disease maternal and paternal Diabetes paternal Grandfather Diabetes maternal Denies family history of Ovarian cancer Hyperlipidemia Breast cancer Hypertension Uterine cancer Stroke Social History Smoking and tobacco/nicotine status: never used tobacco/nicotine Alcohol intake: never Substance/Drug Use: never Marital status: Education level details: Accounting Current occupation: Works at [employer] An[employer] Cardiac Studies: No Data to Display
[2024-03-16] VITALS (89 sets, daily range): BP systolic 121–169; BP diastolic 58–93; PULSE 58–88; RESP 16; TEMP 35.8–36.8; O2SAT 95–98; BMI 44.1
[2024-03-16 05:49] LABS: Basophils % 0.3 %; Eosinophils # 0.2 10^3/uL (0.0-0.8); Hematocrit 35.4 % (36-47); Lymphocytes # 2.5 10^3/uL (0.8-4.8); Lymphocytes % 28.7 %; Mean Corpuscular HGB Conc 33.6 g/dL (30-55); Mean Corpuscular Hemoglobin 28.7 pg (27-33); Mean Corpuscular Volume 85.5 fl (85-98); Monocytes # 0.8 10^3/uL (0.2-0.9); Monocytes % 8.8 %; Neutrophils # 5.26 10^3/uL (1.8-7.7); Neutrophils % 59.5 %; Nucleated Red Blood Cells % 0 %; Platelet Count 289 10^3/cmm (157-399); Red Blood Count 4.14 10^6/uL (3.85-5.65); Red Cell Distribution Width 14.6 % (12.1-15.1); White Blood Count 8.85 10^3/uL (3.29-11.43)
[2024-03-16] MEDS: lactated ringers 1,000 ML 999 ML IV (06:02)
[2024-03-16] MEDS: labetalol 5 mg/mL SDV 20mL 20 MG IVP (06:16)
[2024-03-16] MEDS: labetalol 5 mg/mL SDV 20mL 40 MG IVP (06:42)
--- NOTE | 2024-03-16 06:49 | P.HP_ITS ---
Providers/Chief Complaint 2 Admitting Physician: Mark Lozano MD Primary Care Provider: Mark Lozano MD Chief Complaint: epi consult History of Present Illness Eileen Bedolla is a 29 year old @ 39.1 weeks by 6wk US inconsistent with LMP. Preg c/b obesity, IBS, h/o elevated 1-hr GTT, 1st TM bleeding, cHTN with intermittent severe pressures. The patient presents for a scheduled repeat low-transverse section. The patient has been having elevated blood pressures and it has been relatively well-controlled with labetalol 150 mg twice a day. Her blood pressures would intermittently elevate with times of stress, however would level out well in the 130's systolic with decreased activity. Currently the patient denies any headaches, chest pain, flashes of light, nausea, vomiting, fever, leakage of fluid, vaginal bleeding. Her blood pressures are in the 160s over 80s. She has not taken her labetalol today. Review of Systems 2 Narrative: See HPI Medications/Allergies Home Medications Medication Instructions Recorded Confirmed Last Taken Type 1 tab PO DAILY 02/21/24 03/16/24 03/15/24 21:00 History Claritin 1 tab PO DAILY 03/13/24 03/16/24 03/15/24 21:00 History Probiotic 1 tab PO DAILY 03/13/24 03/16/24 03/15/24 21:00 History labetalol 100 mg tablet 150 mg (1.5 x 100 mg) PO BID #90 03/14/24 03/16/24 03/15/24 20:00 Rx tabs Allergies Allergy/AdvReac Type Severity Reaction Status Date / Time No Known Allergies Allergy Verified 03/13/24 21:42 PFSH Acute 2 PFSH: Medical History Migraine with aura Anxiety Takes hydroxyzine as needed. Managed by primary care provider Dr. Lozano. H/O cardiac arrhythmia Reports having PVCs and during this time had elevated blood pressure and was placed on metoprolol. This was being managed by primary care provider at that time Dr. Romero. She states that since 2018 in 2019 since anxiety and stress improved she has not had these symptoms. She is asymptomatic at this time but will have symptoms with elevated BP. Irritable bowel Diagnosed in 2015 with a colonoscopy--anxiety and stress make it worse. She is on probiotics for this. Started desipramine by her primary care provider in May 2020 as well No pertinent past medical history Denies diabetes, asthma, hypertension, seizures, DVT/PE PCP: Dr. 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 Lozano S/P tonsillectomy and adenoidectomy As a child S/P appendectomy 2011--laparoscopic procedure Family History Family/Other Colon cancer maternal great grandmother-- dx age unknown Mother Thyroid disease Diabetes Grandmother Heart disease maternal and paternal Diabetes paternal Grandfather Diabetes maternal Denies family history of Ovarian cancer Hyperlipidemia Breast cancer Hypertension Uterine cancer Stroke Social History Smoking and tobacco/nicotine status: never used tobacco/nicotine Alcohol intake: never Substance/Drug Use: never Marital status: Education level details: Accounting Current occupation: Works at [employer] Female Reproductive History: : 2 Vitals/I&O/Wt Last Vital Signs Pulse 82 03/16/24 06:40 Resp 16 03/16/24 05:16 BP 164/87 03/16/24 06:40 O2 Del Method Room Air 03/16/24 05:19 Weight last 48 hrs Weight 290 lb Weight 290 lb Physical Exam 2 Narrative: General: Alert and oriented x3 Eyes: Pupils equal round and reactive to light and accommodation Mouth: Mucous membranes moist, pharynx non-erythematous Cardiac: Regular rate and rhythm without murmurs Lungs: Clear to auscultation bilaterally without wheezes, crackles or rhonchi Abdomen: Soft, non-tender, fundus consistent with gestational age Extremities: Trace edema in the bilateral lower extremities. Deep tendon reflexes normal. Data 03/16/24 05:39 A&P Assessment and plan (1) Supervision of high risk , unspecified, third trimester: The patient feels well today. Her blood pressures are in the 160s systolic. We will give her labetalol IV to treat her hypertension. She is not having any symptoms related to this at this time. If her blood pressures continue to be elevated, we may need to add IV magnesium. We will proceed with a repeat low- transverse section. (2) Chronic hypertension: We will continue the antihypertensive protocol and treat with labetalol to start. Will watch for signs of complications and keep overall activity levels and stress levels low during the initial timeframe. Attestations 2 Medical Necessity Statement*: The patient will be here for greater than 2 midnights due to intrapartum and management of labor and delivery. Coding Level of Care Code Acute Code for Chg Fwd Diagnoses Supervision of high risk , unspecified, third trimester O09.93 Chronic hypertension I10
[2024-03-16] MEDS: famotidine 20 mg/2 mL INJ IVP (06:51)
[2024-03-16] MEDS: metoclopramide 5 mg/mL SDV 2 mL 10 MG IVP (06:52)
[2024-03-16] MEDS: ceFAZolin 2,000 mg SDV 2000 MG IVP (06:52)
[2024-03-16] MEDS: citric acid-sodium citrate 30 mL UDC PO (06:52)
--- NOTE | 2024-03-16 06:55 | P.ANESASSM_ITS ---
Pre-Anesthetic Assessment Height/Weight: Height 1.73 m Weight 131.542 kg Temp Pulse Resp BP O2 Del Method 96.4 F L 82 16 164/87 Room Air 03/16/24 06:54 03/16/24 06:40 03/16/24 05:16 03/16/24 06:40 03/16/24 05:19 Preop Diagnosis: IUP Operation Date: 03/16/24 07:20 Proposed Procedures p Section Repeat 05132, O34.219(Not Applicable) - Mark Lozano MD Familial anesthetic complications: none Was Beta Marysol taken within 24 hours: Yes Was Clonidine taken within 24 hours: N/A Last Intake: 22:00 Social No alcohol and No tobacco Exam alert and oriented x 3 Airway Submandibular: within normal limits Cervical ROM: within normal limits Mallampati: Class III Dentition: full History/ROS No significant history except as noted CV/HEM Hypertension Metabolic Morbid Obesity Anesthetic Plan ASA status: 3 Anesthesia: Anesthesia Evaluation, General and Regional (specify below) Medications/Allergies Home Medications Medication Instructions Recorded Confirmed Last Taken Type 1 tab PO DAILY 02/21/24 03/16/24 03/15/24 21:00 History Claritin 1 tab PO DAILY 03/13/24 03/16/24 03/15/24 21:00 History Probiotic 1 tab PO DAILY 03/13/24 03/16/24 03/15/24 21:00 History labetalol 100 mg tablet 150 mg (1.5 x 100 mg) PO BID #90 03/14/24 03/16/24 03/15/24 20:00 Rx tabs Allergies Allergy/AdvReac Type Severity Reaction Status Date / Time No Known Allergies Allergy Verified 03/13/24 21:42 Current Medications Generic Name Dose Route Start Last Admin Trade Name Freq PRN Reason Stop Dose Admin Labetalol HCl 20 mg 03/16/24 06:02 03/16/24 06:16 Labetalol 5 Mg/Ml Sdv 20ml IVP 20 mg PRN PRN Administration HYPERTENSION Protocol Labetalol HCl 40 mg 03/16/24 06:02 03/16/24 06:42 Labetalol 5 Mg/Ml Sdv 20ml IVP 40 mg PRN PRN Administration HYPERTENSION Protocol [facility] Anesthesia Medical History Migraine with aura Anxiety Takes hydroxyzine as needed. Managed by primary care provider Dr. Lozano. H/O cardiac arrhythmia Reports having PVCs and during this time had elevated blood pressure and was placed on metoprolol. This was being managed by primary care provider at that time Dr. Romero. She states that since 2018 in 2018 since anxiety and stress improved she has not had these symptoms. She is asymptomatic at this time but will have symptoms with elevated BP. Irritable bowel Diagnosed in 2015 with a colonoscopy--anxiety and stress make it worse. She is on probiotics for this. Started desipramine by her primary care provider in May 2020 as well No pertinent past medical history Denies diabetes, asthma, hypertension, seizures, DVT/PE PCP: Dr. 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 Lozano S/P tonsillectomy and adenoidectomy As a child S/P appendectomy 2011--laparoscopic procedure Family History Family/Other Colon cancer maternal great grandmother-- dx age unknown Mother Thyroid disease Diabetes Grandmother Heart disease maternal and paternal Diabetes paternal Grandfather Diabetes maternal Denies family history of Ovarian cancer Hyperlipidemia Breast cancer Hypertension Uterine cancer Stroke Social History Smoking and tobacco/nicotine status: never used tobacco/nicotine Alcohol intake: never Substance/Drug Use: never Marital status: Education level details: Accounting Current occupation: Works at [employer] Female Reproductive History : 2 Data Anesthesia 03/16/24 05:39 Short CBC 03/16/24 Range/Units 05:39 WBC 8.85 (3.29-11.43) 10^3/uL Hgb 11.90 (11.27-16.99) g/dL Hct 35.4 L (36-47) % MCV 85.5 (85-98) fl Plt Count 289 (157-399) 10^3/cmm Neut % (Auto) 59.5 % Neut # (Auto) 5.26 (1.8-7.7) 10^3/uL Blood Bank 03/16/24 05:39 Blood Type O Positive Rho(D) Type Rh positive Antibody Screen Negative Cardiac Studies: 2 No Data to Display
--- NOTE | 2024-03-16 09:08 | P.OP_ITS ---
Operative Report Date of procedure: March 16, 2024 Pre-op diagnosis: 1. Intrauterine at 39.1 weeks gestation 2. Obesity 3. First trimester bleeding 4. Chronic hypertension with intermittent severe pressures on labetalol Post-op diagnosis: 1. Intrauterine status post repeat low-transverse section at 39.1 weeks gestation 2. Obesity 3. First trimester bleeding 4. Chronic hypertension with intermittent severe pressures on labetalol 5. Large for gestational age infant 6. Delivery of healthy infant male weighing 10 pounds 8 ounces with Apgars of 6 and 9 Procedure done: Repeat low-transverse section Specimens removed/disposition: Placenta discarded Surgeon: Mark Lozano MD Estimated blood loss (mL): 600 Complications: None Brief History: Eileen Bedolla is a 29 year old G2 now P2 status post repeat low-transverse section @ 39.1 weeks by 6wk US inconsistent with LMP. Preg c/b obesity, IBS, h/o elevated 1-hr GTT, 1st TM bleeding, cHTN with intermittent severe pressures. The patient presented for a scheduled repeat low-transverse section. The patient has been having elevated blood pressures and it has been relatively well-controlled with labetalol 150 mg twice a day. Her blood pressures would intermittently elevate with times of stress, however would level out well in the 130's systolic with decreased activity. Prior to delivery, the patient denies any headaches, chest pain, flashes of light, nausea, vomiting, fever, leakage of fluid, vaginal bleeding. Her blood pressures are in the 160s over 80s. She has not taken her labetalol today. Procedure: After informed consent was obtained, the patient was taken to the operating room and the patient was prepped and draped in a normal sterile fashion in the dorsal supine position.? A spinal was placed and adequate anesthesia was obtained.? At 7:26 AM on 03/16/2024 a Pfannenstiel skin incision was made and carried through to the underlying layer of fascia using a scalpel.? The fascial incision was then extended laterally using curved Mayos.? The fascia was then grasped with Ko talat clamps and the underlying rectus muscles were dissected off taking care to avoid injury to the underlying tissues.? The peritoneum was entered bluntly with one digit.? It was then bluntly.? The bladder blade was placed and the vesicouterine peritoneum was well below the lower uterine segment of the uterus.? The uterine incision was made in the lower uterine segment in a transverse fashion with the scalpel at 7:31 AM.? The amniotic membrane was entered bluntly and a large amount of clear fluid was noted.? Uterine pressure was placed and the infant's head delivered with a moderate amount of maneuvering at 7:35 AM on 03/16/2024. The infant was quite large.? There was no nuchal cord.? The mouth and nose were suctioned.? The rest of the infant delivered without difficulty.? The infant took a breath immediately and had good tone upon delivery.? The cord was clamped and cut and the was handed to the awaiting pediatric nurses.? The placenta was then manually expressed.? The uterus was exteriorized from the abdomen.? A wet lap was used to clear the uterus of clots and debris.? The bladder blade was reinserted and the uterine incision was closed using 0 chromic in a running locking fashion.? The uterus was noted to be firm.? A second layer of the same suture was used in the same manner.? Excellent hemostasis was obtained. Next the posterior cul-de-sac was inspected and was cleared of any blood. The gutters were cleared of any further clots and debris and the uterine incision was again inspected and hemostasis was noted.? The subfascial tissue was inspected for hemostasis and the peritoneum was re-approximated using 2-0 plain in a running fashion.? The fascia was then re-approximated using 0 Vicryl in a running fashion.? The subcutaneous tissue was inspected for hemostasis.? Shaun's fascia was then re-approximated using 3-0 plain in a running fashion.? Good hemostasis was noted.? The subcutaneous tissue was then re-approximated using a subcuticular stitch.? The patient tolerated the procedure well and was recovered in stable condition.? Estimated blood loss was 600 mL. Urine in the Shelley catheter was clear. The patient was taken to recovery in good condition.
--- NOTE | 2024-03-16 09:25 | ANE.PACU2 ---
Inpatient post-anesthesia follow up: Airway intact: Yes Vital signs: Temperature 98.1 F Pulse Rate 76 Respiratory Rate 16 Blood Pressure 136/73 Pulse Oximetry 97 Oxygen Delivery Me thod Room Air Oxygen Flow Rate Fraction of Inspir ed Oxygen Hydration adequate: Yes Nausea and vomiting: No Pain level: 1 Mental status: Baseline
[2024-03-16] MEDS: dextrose 5%-lactated ringers 1,000 ML 125 ML IV (09:57)
[2024-03-16] MEDS: ketorolac 30 mg/mL INJ IVP ×2 (15:33→21:15)
[2024-03-16] MEDS: docusate sodium 100 mg Capsule PO (18:01)
[2024-03-16] MEDS: LABETALOL 100 MG 1.5 EACH PO (18:01)
[2024-03-16 22:22] LABS: Hematocrit 28.9 % (36-47); Mean Corpuscular HGB Conc 33.9 g/dL (30-55); Mean Corpuscular Hemoglobin 29.2 pg (27-33); Mean Platelet Volume 10.2 fL (7.4-10.4); Platelet Count 238 10^3/cmm (157-399); Red Blood Count 3.36 10^6/uL (3.85-5.65); Red Cell Distribution Width 14.5 % (12.1-15.1); White Blood Count 9.09 10^3/uL (3.29-11.43)
[2024-03-17] MEDS: ketorolac 30 mg/mL INJ IVP (03:50)
[2024-03-17 04:19] VITALS: BP 146/84; PULSE 106; RESP 16; TEMP 36.9
[2024-03-17] MEDS: acetaminophen 325 mg Tablet 650 MG PO ×2 (07:37→16:03)
--- NOTE | 2024-03-17 08:05 | P.PN_ITS ---
Subjective 2 Subjective: The patient is doing well postop day 1. Her pain is currently well-controlled. She does have some constipation that she is taking medications to help with. She is passing gas. She is tolerating food by mouth. She is ambulating, voiding. Her bleeding is well-controlled. She denies any concerning factors for hypertension. She is tolerating the labetalol. She is continuing to have some pain in her right ear. She has been taking Claritin and Flonase for this. She wonders if there are other meds that she could take to help with this. It feels like pressure and popping. Vitals/I&O/Wt Last Vital Signs Temp 98.4 F 03/17/24 04:19 Pulse 106 H 03/17/24 04:19 Resp 16 03/17/24 04:19 BP 146/84 03/17/24 04:19 Pulse Ox 97 03/16/24 22:36 O2 Del Method Room Air 03/16/24 22:36 03/16/24 03/17/24 03/17/24 22:59 06:59 14:59 Intake Total 1000 / 3700 Output Total 1100 / 2800 400 / 3200 Balance -100 / 900 -400 / 500 Weight last 48 hrs Weight 290 lb Weight 290 lb Physical Exam 2 Narrative: General: Alert and oriented x3 Cardiac: Regular rate and rhythm without murmurs Lungs: Clear to auscultation bilaterally without wheezes, crackles or rhonchi Abdomen: Soft, mild to moderate diffuse tenderness. Uterus is firm and below the umbilicus. Incision is clean and dry without signs of infection or dehiscence. Extremities: +1 pitting edema in the bilateral lower extremities. Urinary Catheter Management: Shelley: Cath Placed During This Visit: yes, but has since been removed by the nurse Reason for Continuing Indwelling Catheter: Decision to DC Catheter Urinary Catheter Date of Insertion: 03/16/24 Urinary Catheter Time of Insertion: 07:17 Date Urinary Catheter Removed: 03/16/24 Time Urinary Catheter Discontinued: 19:11 Data 03/16/24 21:30 A&P Assessment and plan (1) Supervision of high risk , unspecified, third trimester: The patient is showing continued signs of improvement. Her blood pressures are staying in the 130s to 140s on labetalol 150 mg twice a day. Currently she is not showing any signs of other severe features. We will continue to monitor. She is to continue to keep her overall activity levels down. If she continues to do well we will plan for discharge home over the next 1 to 2 days. (2) Chronic hypertension: (3) Ear pain, right: The patient has had problems with pain in her ear over the last 3 weeks. She has been taking Claritin and Flonase. Continue with these for now. We may need to explore other options if persistent. Attestations 2 Medical Necessity Statement*: The patient's stay continues to need to cross 2 midnights that she recovers after section. Coding Level of Care Code Acute Code for Chg Fwd Diagnoses Supervision of high risk , unspecified, third trimester O09.93 Chronic hypertension I10 Ear pain, right H92.01
[2024-03-17] MEDS: docusate sodium 100 mg Capsule PO ×2 (09:17→17:30)
[2024-03-17] MEDS: simethicone 80 mg Chew PO ×2 (09:17→21:13)
[2024-03-17] MEDS: PRENATAL VIT NO.130/IRON/FOLIC 1 EACH TABLET PO (09:17)
[2024-03-17] MEDS: LABETALOL 100 MG 1.5 EACH PO ×2 (09:25→19:05)
[2024-03-17 09:26] VITALS: BP 141/76; PULSE 85
[2024-03-17 17:54] VITALS: BP 143/82; PULSE 101
[2024-03-17 21:08] VITALS: BP 139/67; PULSE 90; RESP 18; TEMP 37.1
[2024-03-17] MEDS: ibuprofen 800 mg tablet PO (21:13)
[2024-03-18] MEDS: hyDROXYzine 25 mg Capsule 50 MG PO (02:46)
[2024-03-18 05:54] VITALS: BP 140/70; PULSE 88
[2024-03-18] MEDS: ibuprofen 800 mg tablet PO ×2 (08:31→15:32)
[2024-03-18] MEDS: ferrous sulfate EC 325 mg Tablet PO (08:31)
[2024-03-18] MEDS: LABETALOL 100 MG 1.5 EACH PO (08:31)
[2024-03-18] MEDS: PRENATAL VIT NO.130/IRON/FOLIC 1 EACH TABLET PO (08:31)
[2024-03-18 10:28] VITALS: BP 134/64; PULSE 85
--- NOTE | 2024-03-18 13:55 | PM.DCS ---
Discharge Providers Date of Admission: 03/16/24 05:08 Date of Discharge: March 18, 2024 Attending Provider at Admission: Mark Lozano MD Attending Provider at Discharge: Mark Lozano MD Primary Care Provider: Mark Lozano MD Diagnoses at Discharge Discharge Diagnosis (1) Supervision of high risk , unspecified, third trimester: Status: Acute (2) Chronic hypertension: Status: Acute (3) Ear pain, right: Status: Acute Other Information Additional DC diagnoses/information: 1. Intrauterine status post repeat low-transverse section at 39.1 weeks gestation 2. Obesity 3. First trimester bleeding 4. Chronic hypertension with intermittent severe pressures on labetalol 5. Large for gestational age infant 6. Delivery of healthy infant male weighing 10 pounds 8 ounces with Apgars of 6 and 9 Reason for Visit Reason for Visit: epi consult Brief History: Eileen Bedolla is a 29 year old G2 now P2 status post repeat low-transverse section @ 39.1 weeks by 6wk US inconsistent with LMP. Preg c/b obesity, IBS, h/o elevated 1-hr GTT, 1st TM bleeding, cHTN with intermittent severe pressures. The patient presented for a scheduled repeat low-transverse section. The patient has been having elevated blood pressures and it has been relatively well-controlled with labetalol 150 mg twice a day. Her blood pressures would intermittently elevate with times of stress, however would level out well in the 130's systolic with decreased activity. Prior to delivery, the patient denied any headaches, chest pain, flashes of light, nausea, vomiting, fever, leakage of fluid, vaginal bleeding. Hospital Course Hospital Course The patient had a scheduled repeat low-transverse section. Her delivery was uncomplicated. She did deliver a large for gestational age male weighing 10 pounds 8 ounces. , the patient has done well. Her bleeding is decreasing well. Her pain is well-controlled. Her blood pressures have been in the 130s and 140s on labetalol 150 mg twice a day by mouth. She has shown no signs of severe features clinically outside of some elevated pressures prior to and immediately following her delivery. Precautions regarding her blood pressures were discussed and she is to take her blood pressure at home twice a day. Routine discharge instructions were also discussed and the patient is to follow-up with me early next week. She is to keep her overall activity levels decreased for the next week at minimum. All questions were answered. The patient and her are in agreement with discharge home at this time. Physical Exam Narrative: General: Alert and oriented x3 Cardiac: Regular rate and rhythm without murmurs Lungs: Clear to auscultation bilaterally without wheezes, crackles or rhonchi Abdomen: Soft, mild to moderate diffuse tenderness. Uterus is firm and below the umbilicus. Incision is clean and dry without signs of infection or dehiscence. Extremities: +2 pitting edema in the bilateral lower extremities. Urinary Catheter Management: Shelley: Cath Placed During This Visit: yes, but has since been removed by the nurse Reason for Continuing Indwelling Catheter: Decision to DC Catheter Urinary Catheter Date of Insertion: 03/16/24 Urinary Catheter Time of Insertion: 07:17 Date Urinary Catheter Removed: 03/16/24 Time Urinary Catheter Discontinued: 19:11 Discharge Data Studies Completed and Pending Laboratory Results WBC 9.09 10^3/uL (3.29-11.43) 03/16/24 21:30 RBC 3.36 10^6/uL (3.85-5.65) L 03/16/24 21:30 Hgb 9.80 g/dL (11.27-16.99) L 03/16/24 21:30 Hct 28.9 % (36-47) L 03/16/24 21:30 MCV 86.0 fl (85-98) 03/16/24 21:30 MCH 29.2 pg (27-33) 03/16/24 21:30 MCHC 33.9 g/dL (30-55) 03/16/24 21:30 RDW 14.5 % (12.1-15.1) 03/16/24 21:30 Plt Count 238 10^3/cmm (157-399) 03/16/24 21:30 MPV 10.2 fL (7.4-10.4) 03/16/24 21:30 Neut % (Auto) 59.5 % 03/16/24 05:39 Lymph % (Auto) 28.7 % 03/16/24 05:39 Worth % (Auto) 8.8 % 03/16/24 05:39 Eos % (Auto) 2.0 % 03/16/24 05:39 Baso % (Auto) 0.3 % 03/16/24 05:39 Neut # (Auto) 5.26 10^3/uL (1.8-7.7) 03/16/24 05:39 Lymph # (Auto) 2.5 10^3/uL (0.8-4.8) 03/16/24 05:39 Worth # (Auto) 0.8 10^3/uL (0.2-0.9) 03/16/24 05:39 Eos # (Auto) 0.2 10^3/uL (0.0-0.8) 03/16/24 05:39 Baso # (Auto) 0.0 10^3/uL (0.0-0.1) 03/16/24 05:39 Nucleated RBC % (auto) 0 % 03/16/24 05:39 Nucleated RBCs # 0.0 /100WBC 03/16/24 05:39 Blood Type O Positive 03/16/24 05:39 Rho(D) Type Rh positive 03/16/24 05:39 Antibody Screen Negative 03/16/24 05:39 Vitals Last Vital Signs Temp 98.7 F 03/17/24 21:08 Pulse 85 03/18/24 10:28 Resp 18 03/17/24 21:08 BP 134/64 03/18/24 10:28 Pulse Ox 97 03/16/24 22:36 O2 Del Method Room Air 03/17/24 21:08 Discharge Plan Discharge Patient Disposition: Home Condition: Good Prescriptions: New oxycodone-acetaminophen 5-325 mg Tablet 1 tab PO Q6H PRN (Reason: Moderate To Severe Pain) Qty: 20 0RF docusate sodium 100 mg Capsule 100 mg PO BID PRN (Reason: constipation) Qty: 30 0RF ibuprofen 800 mg Tablet 800 mg PO TID Qty: 40 0RF ferrous sulfate 325 mg (65 mg iron) Tablet,Delayed Release (Dr/Ec) 325 mg PO BIDWM Qty: 30 0RF Continued labetalol 100 mg tablet 150 mg PO BID Qty: 90 3RF 1 tab PO DAILY Claritin 1 tab PO DAILY Probiotic 1 tab PO DAILY Discharge Orders: Discharge Order (Routine); Ordered 03/18/24 Ordered By: Mark Lozano Referrals: Mark Lozano MD [Primary Care Provider] - 03/21/24 Discharge Diet: Regular Discharge Activity: Limit activity as instructed Patient Instructions: Depression (DC), Bleeding (DC), Preeclampsia and Eclampsia After Delivery (GEN), (DC), Hemorrhage (DC), OB Caring for Baby [facility], OB Discharge Report, OB Food/Drug Interaction Guide, Opioid Safety, OB Home Care, OB Proud Parent Packet Activity Restrictions/Additional Instructions: Do not lift anything heavier than your infant in the car seat for the first 3 weeks, then gradually increase. Showers are recommended instead of baths for the first 6 weeks. If you have any concern for infection in your incision site, please seek immediate medical attention. Nothing per vagina for 6 weeks. Monitor your blood pressure twice a day and if your blood pressures are starting to increase mild to moderately, decrease your overall activity levels. If they are becoming severe with blood pressures over 160/110, please contact her office for further instruction. Discharge Attestations Time Spent in Discharge Care*: greater than 30 min Quality Metrics Clinical Quality Measures [ No reported AMI, CVA or VTE this stay] Coding Level of Care Code Acute Code for Chg Fwd Diagnoses Supervision of high risk , unspecified, third trimester O09.93 Chronic hypertension I10 Ear pain, right H92.01
[2024-03-18] MEDS: simethicone 80 mg Chew PO (15:32)
[2024-03-18] MEDS: measles,mumps,rubella pf Vial (w/diluent) 0.5 ML SUBCUT (16:25)
[2024-03-18 16:40] VITALS: BP 141/77; PULSE 83; RESP 16; TEMP 36.7
[2024-03-18 16:42] VITALS: BP 176/95; PULSE 95
[2024-03-18 16:48] VITALS: BP 174/80; PULSE 94
[2024-03-18 17:05] VITALS: BP 141/77; PULSE 83
== END 2024-03-18 17:30 | disposition home or self-care (01) | DRG 788 ==
PROVIDERS: Admitting Provider Family Medicine; PCP Family Medicine; Visit Provider Family Medicine
PROC: 10D00Z1 Extraction of Products of Conception, Low, Open Approach (ICD-10-PCS; CPT 59514; principal; 2024-03-16 07:00)
DX: O10.02 Pre-existing essential hypertension complicating childbirth (principal); O99.344 Other mental disorders complicating childbirth; O99.214 Obesity complicating childbirth; O36.63X0 Maternal care for excessive fetal growth, third trimester, not applicable or unspecified; Z3A.39 39 weeks gestation of pregnancy; Z37.0 Single live birth; O34.219 Maternal care for unspecified type scar from previous cesarean delivery; O75.89 Other specified complications of labor and delivery; K58.1 Irritable bowel syndrome with constipation; H92.01 Otalgia, right ear; F41.9 Anxiety disorder, unspecified
CPT/HCPCS: 36415; 51702; 59409; 85025; 85027; 86850; 86900; 90471; 90707; 96374; 96376; 98960; J0690; J1885; J2250; J2274; J2405; J2765; J3010; J3490; J7030; J7120; J7121

== ENCOUNTER → 2024-08-12 09:15 | Outpatient (BNVA) | payer OTHER, SELFPAY | PROVIDERS: PCP Family Medicine; Visit Provider Nurse Practitioner Women's Health | DX: N93.9 Abnormal uterine and vaginal bleeding, unspecified (principal); I10 Essential (primary) hypertension; G43.109 Migraine with aura, not intractable, without status migrainosus; L68.0 Hirsutism; N91.5 Oligomenorrhea, unspecified; N91.1 Secondary amenorrhea | CPT/HCPCS: 83036; 83525; 84403; 84439; 84443 ==

== ENCOUNTER → 2024-10-17 07:59 | Outpatient (BNVA) | payer OTHER, SELFPAY | PROVIDERS: PCP Family Medicine; Visit Provider Family Medicine | DX: R19.7 Diarrhea, unspecified (principal) | CPT/HCPCS: 87045; 87177; 87209; 87328; 87329; 87427; 87449; 87493 ==

== ENCOUNTER 2025-04-10 19:43 | Emergency (ER) | payer OTHER, SELFPAY ==
--- OUTSIDE RECORDS SUMMARY | 2025-04-10 19:58 | XMS_ITS | Clinical Summary ---
Author Organization [facility] Address [address] [place] [address] Phone Care Team Providers Care Pump Erector Name Role Phone Mark Lozano MD Primary Care Provider [phone] Allergies No known active allergies Medications pantoprazole (PROTONIX) 20 mg Tablet, Delayed Release (E.C.) TAKE ONE TABLET BY MOUTH ONCE DAILY 30 Tablet 5 7 Active metoprolol tartrate (LOPRESSOR) 25 mg tablet Take 12.5 mg by mouth daily. Active norgestimate-eth inyl estradiol (MONONESSA, 28,) 0.25 mg-35 mcg tabletIndication s:patient states shes not taking Take 1 Tablet by mouth daily. Active hydrOXYzine HCl (ATARAX) 25 mg tablet Take 25 mg by mouth every 8 hours as needed for Itching. Active raNITIdine (ZANTAC) 150 mg CapsuleIndicatio ns:Gastroesophag eal reflux disease without esophagitis Take 1 Capsule (150 mg) by mouth daily. 30 Capsule 2 9 Active polyethylene glycol 3350 (MIRALAX) 17 gram/dose PowderIndication s:Mixed irritable bowel syndrome Take 1 SCOOP (17 Grams) by mouth daily Dissolve in 8 ounces of fluid and drink entire liquid. 527 Gram 9 Active desipramine (NORPRAMIN) 50 mg tablet Take 1 Tablet (50 mg) by mouth daily. 30 Tablet 11 0 Active peppermint oil (IBgard) 90 mg Capsule, Delayed & Ext.Release Take 1 Tablet by mouth daily. 30 Each 1 0 Active ondansetron (Zofran) 4 mg Tablet Take 1 Tablet (4 mg) by mouth every 8 hours as needed for Nausea/Emesis . 30 Tablet 1 1 Active hydrocortisone (PROCTOZONE-HC) 2.5 % cream with perineal applicatorIndica tions:Hemorrhoid s, unspecified hemorrhoid type Insert by rectum 2 times daily. 60 Gram 1 Active Active Problems No known active problems Immunizations Immunization Administration Dates Next Due (ADACEL/BOOSTRIX)(10 YR UP) TDAP VACCINE, 0.5ML, IM 03/08/2010 (GARDASIL)(9-45 YRS) HUMAN PAPILLOMAVIRUS VACCINE, TYPES 6, 11, 16, 18, QUADRIVALENT (4VHPV), 3 DOSE, IM 03/08/2010 (M-M-R II/PRIORIX)(12 MO UP) MEASLES, MUMPS AND RUBELLA VIRUS VACCINE, 0.5 ML IM/SUBCUT 03/04/2002,03/07/1998 Dt Dtp Dtap Vaccine 03/04/2002, 8,1997,06/14,1997 HIB, Unspecified Formulation 03/07/1998, 1997,1997,03/29 Hepatitis B Vaccine 1997,1997,1996 IPV/OPV 03/04/2002, 8,1997,03/29 Meningococcal A Conjugate Vaccine IM 03/08/2010 Family History Medical History Relation Name Comments Colon Cancer Neg Hx Social History Tobacco Use Types Packs/Day Years Used Date Smoking Tobacco: Never Smokeless Tobacco: Never Alcohol Use Standard Drinks/Week Comments No 0 (1 standard drink = 0.6 oz pur e alcohol) Comments No Sex and Gender Information Value Date Recorded Sex Assigned at Not on file Legal Sex Female 4:56 AM LENS AND FRAMES PRESCRIPTION CLERK Gender Identity Not on file Sexual Orientation Not on file Last Filed Vital Signs Vital Sign Reading Time Taken Comments Blood Pressure 156/83 06/08/2019 1:35 PM LENS AND FRAMES PRESCRIPTION CLERK Pulse 97 06/08/2019 1:35 PM LENS AND FRAMES PRESCRIPTION CLERK Temperature 36.7 C (98 F) 08/28/2016 8:48 AM LENS AND FRAMES PRESCRIPTION CLERK Respiratory Rate 16 08/28/2016 9:42 AM LENS AND FRAMES PRESCRIPTION CLERK Oxygen Saturation 100% 12/01/2018 2:29 PM CDT Inhaled Oxygen Concentration - - Weight 109.8 kg (242 lb) 06/08/2019 1:35 PM LENS AND FRAMES PRESCRIPTION CLERK Height 172.7 cm (5' 8 ) 06/08/2019 1:35 PM LENS AND FRAMES PRESCRIPTION CLERK Body Mass Index 36.8 06/08/2019 1:35 PM LENS AND FRAMES PRESCRIPTION CLERK Plan of Treatment Health Maintenance Due Date Last Done Comments HPV VACCINES (2 - 2-dose series) 09/08/2010 03/08/20 10 CERVICAL CANCER SCREENING 2018 HPV/Cotest (21-29) 2018 PAP SMEAR 2018 DTAP/TDAP/TD VACCINES (7 - T d or Tdap) 03/08/2020 03/08/2010, 03/04/2002, 03/07/1998, Additional history exists INFLUENZA VACCINE (#1) 2025 HEPATITIS B VACCINES Completed 1997, 1997, [address] [place] [address] [place] [address] CHOICE Advance Directives For more information, please contact: [phone] * Full Code (Latest Code Status on File) Date Activated Date Inactivated Comments 08/28/2016 8:56 AM 08/28/2016 11:47 AM * Full Code Date Activated Date Inactivated Comments 04/02/2016 8:26 AM 04/02/2016 12:17 PM Care Teams Pump Erector Relationship Specialty Start Date End Date Mark Lozano MD [facility] [place] [phone] PCP - General Family Practice 12/01/18
--- OUTSIDE RECORDS SUMMARY | 2025-04-10 19:58 | XMS_ITS | Encounter Summary ---
Author Organization [facility] Address [address] [place] [address] Care Team Providers Care Broach Setter Name Role Phone Mark Lozano MD Primary Care Provider [phone] Encounter Details Date Type Department Care Team (Late st Contact Info) Description 07/24/[address] [facility] [address] [facility] [address] [place] [phone] Nella George MD NO ADDRESS ON FILE SKIN DISORDERS NEC (Primary Dx) Social History Tobacco Use Types Packs/Day Years Used Date Smoking Tobacco: Never Assessed Comments Unknown Sex and Gender Information Value Date Recorded Sex Assigned at Not on file Legal Sex Female 4:56 AM GUIDANCE SERVICES COORDINATOR Gender Identity Not on file Sexual Orientation Not on file documented as of this encounter Plan of Treatment Not on file documented as of this encounter Visit Diagnoses Diagnosis Other specified disorder of skin- Primary documented in this encounter Care Teams Broach Setter Relationship Specialty Start Date End Date Mark Lozano MD [address] [place] [phone] PCP - General Family Practice 12/01/18 documented as of this encounter
--- OUTSIDE RECORDS SUMMARY | 2025-04-10 19:58 | XMS_ITS | Clinical Summary ---
Author Organization [facility] Address [address] Rasheed: Epic Prelude ADT [place] [address] Care Team Providers Care Mortgage Loan Officer Name Role Phone Mark Lozano MD Primary Care Provider [phone] Allergies No known active allergies Medications norgestimate-eth inyl estradioL 0.25 mg-35 mcg tablet Take 1 Tablet by mouth daily. 9 Active peppermint oiL (IBgard) 90 mg Capsule, Delayed & Ext.Release Take 1 Tablet by mouth daily. 30 Each 1 0 Active hydrOXYzine HCL (ATARAX) 25 mg tablet Take 25 mg by mouth every 8 hours as needed for Itching. 9 Active raNITIdine (ZANTAC) 150 mg CapsuleIndicatio ns:Gastroesophag eal reflux disease without esophagitis Take 1 Capsule (150 mg) by mouth daily. 30 Capsule 2 9 Active metoprolol tartrate (LOPRESSOR) 25 mg tablet Take 12.5 mg by mouth daily. 9 Active desipramine (NORPRAMIN) 50 mg tablet Take 1 Tablet (50 mg) by mouth daily. 30 Tablet 11 0 Active polyethylene glycol 3350 (MIRALAX) 17 gram/dose PowderIndication s:Mixed irritable bowel syndrome Take 1 SCOOP (17 Grams) by mouth daily Dissolve in 8 ounces of fluid and drink entire liquid. 527 Gram 0 9 Active hydrocortisone (PROCTOZONE-HC) 2.5 % cream with perineal applicatorIndica tions:Hemorrhoid s, unspecified hemorrhoid type Insert by rectum 2 times daily. 60 Gram 0 1 Active ondansetron (ZOFRAN) 4 mg Tablet Take 1 Tablet (4 mg) by mouth every 8 hours as needed for Nausea/Emesis . 30 Tablet 1 1 Active labetaloL (NORMODYNE) 200 mg tablet Take 50 mg by mouth 2 times daily. Active pantoprazole (PROTONIX) 20 mg Tablet, Delayed Release (E.C.) TAKE ONE TABLET BY MOUTH ONCE DAILY 30 Tablet 5 7 Active VIT-IRON FUM-FOLIC AC ORAL Take by mouth. Active Active Problems No known active problems [...] drink = 0.6 oz pur e alcohol) Feeling Safe Answer Date Recorded Are you in a relationship wi th someone who hurts you emotionally and/or physically? No 01/28/2024 Comments No Sex and Gender Information Value Date Recorded Sex Assigned at Not on file Legal Sex Female 3:24 PM ANODE ADJUSTER Gender Identity Not on file Sexual Orientation Not on file Last Filed Vital Signs Vital Sign Reading Time Taken Comments Blood Pressure 135/80 01/28/2024 6:50 PM CDT Pulse 118 01/28/2024 6:34 PM CDT I reported, to Nichelle Acosta RN. Temperature 37.1 C (98.7 F) 01/28/2024 6:34 PM CDT Respiratory Rate 20 01/28/2024 6:34 PM CDT Oxygen Saturation 100% 01/28/2024 6:3 4 PM CDT Inhaled Oxygen Concentration - - Weight 129.5 kg (285 lb 9.6 oz) 01/28/2024 6:34 PM CDT Height 172.7 cm (5' 8 ) 01/28/2024 6:34 PM CDT Body Mass Index 43.43 01/28/2024 6:34 PM CDT Plan of Treatment Health Maintenance Due Date Last Done Comments HPV VACCINES (2 - 2-dose series) 09/08/2010 03/08/20 10 CERVICAL CANCER SCREENING 2018 HPV/Cotest (21-29) 2018 PAP SMEAR 2018 DTAP/TDAP/TD VACCINES (7 - T d or Tdap) 03/08/2020 03/08/2010, 03/04/2002, 03/07/1998, Additional history exists INFLUENZA VACCINE (#1) 2025 HEPATITIS B VACCINES Completed 1997, 1997, 1997 Insurance [employer] [facility] [id number] Advance Directives For more information, please contact: [phone] * Full Code (Latest Code Status on File) Date Activated Date Inactivated Comments 01/28/2024 6:32 PM 01/29/2024 1:06 AM Care Teams Mortgage Loan Officer Relationship Specialty Start Date End Date Mark Lozano MD [address] [place] [phone] PCP - General Family Practice 12/01/18
--- OUTSIDE RECORDS SUMMARY | 2025-04-10 19:58 | XMS_ITS | Encounter Summary ---
Author Organization [facility] Address [address] [place] [address] Care Team Providers Care Oceanic Sciences Professor Name Role Phone Mark Lozano MD Primary Care Provider [phone] Encounter Details Date Type Department Care Team (Latest Contact Info) Description 04/06/2003 Outpatient Historical [facility] Nella George MD NO ADDRESS ON FILE SEBACEOUS CYST (Primary Dx) Social History Tobacco Use Types Packs/Day Years Used Date Smoking Tobacco: Never Assessed Comments Unknown Sex and Gender Information Value Date Recorded Sex Assigned at Not on file Legal Sex Female 4:56 AM FERRYBOAT OPERATOR CABLE Gender Identity Not on file Sexual Orientation Not on file documented as of this encounter Plan of Treatment Not on file documented as of this encounter Visit Diagnoses Diagnosis Sebaceous cyst- Primary documented in this encounter Care Teams Oceanic Sciences Professor Relationship Specialty Start Date End Date Mark Lozano MD [address] [place] [phone] PCP - General Family Practice 12/01/18 documented as of this encounter
--- OUTSIDE RECORDS SUMMARY | 2025-04-10 19:58 | XMS_ITS | Encounter Summary ---
Author Organization [facility] Address [address] [place] [address] Care Team Providers Care Collections Attorney Name Role Phone Mark Lozano MD Primary Care Provider [phone] Encounter Details Date Type Department Care Team (Latest Contact Info) Description 07/28/2003 Outpatient Historical [facility] Nella George MD NO ADDRESS ON FILE SURGERY FOLLOWUP, UNSPEC (Primary Dx) Social History Tobacco Use Types Packs/Day Years Used Date Smoking Tobacco: Never Assessed Comments Unknown Sex and Gender Information Value Date Recorded Sex Assigned at Not on file Legal Sex Female 4:56 AM ENGINEERING TECHNOLOGY INSTRUCTOR Gender Identity Not on file Sexual Orientation Not on file documented as of this encounter Plan of Treatment Not on file documented as of this encounter Visit Diagnoses Diagnosis Follow-up examination, following unspecified surgery- Primary documented in this encounter Care Teams Collections Attorney Relationship Specialty Start Date End Date Mark Lozano MD [address] [place] [phone] PCP - General Family Practice 12/01/18 documented as of this encounter
--- OUTSIDE RECORDS SUMMARY | 2025-04-10 19:58 | XMS_ITS | Encounter Summary ---
Author Organization [facility] Address [address] [place] [address] Care Team Providers Care Lease Attendant Name Role Phone Mark Lozano MD Primary Care Provider [phone] Reason for Referral * Outpatient Services (Routine) - Closed Specialty Diagnoses / Procedures Referred By Amanda t Referred To Contact Radiology Diagnoses Epigastric pain Nausea Gastroesophageal reflux disease without esophagitis Procedures NM HEPATOBILIARY SCAN NM HEPATOBIL W EJECT FRACTION Harlan Mane DO [address] [address] Phone: tel: fax: [facility] Nuclear Medicine [address] [place] [phone] Phone: tel: fax: Referral ID Status Reason Start Date Expiration Date V isits Requested Visits Authorized [id number] Closed [facility] TO SCHEDULE (SGF) 05/20/2016 06/20/2017 1 1 Encounter Details Date Type Department Care Team (Late st Contact Info) Description 06/11/2016 Ancillary Orders [facility] [place] [address] [address] Harlan Mane DO [address] [phone] Epigastric pain; Nausea; Gastroesophageal reflux disease without esophagitis Social History Tobacco Use Types Packs/Day Years Used Date Smoking Tobacco: Never Smokeless Tobacco: Never Alcohol Use Standard Drinks/Week Comments No 0 (1 standard drink = 0.6 oz pur e alcohol) Comments No Sex and Gender Information Value Date Recorded Sex Assigned at Not on file Legal Sex Female 4:56 AM ORE MINER BLASTING Gender Identity Not on file Sexual Orientation Not on file documented as of this encounter Plan of Treatment Not on file documented as of this encounter Results * NM HEPATOBILIARY SCAN (06/11/2016 10:44 AM ORE MINER BLASTING) Anatomical Region Laterality Modality Abdomen Nuclear Medicine 06/11/2016 10:4 5 AM ORE MINER BLASTING Impressions 06/11/2016 11:17 AM ORE MINER BLASTING Impression: Normal study. The cystic and common bile ducts do appear to be grossly patent. The patient's response to the Ensure Plus stimulation was normal. This laboratory has been accredited by the In[employer]oci[employer] Commission for the Accreditation of Nuclear Medicine Laboratories (ICANL). Narrative 06/11/2016 11:17 AM ORE MINER BLASTING Hepatobiliary Imaging With Ensure Plus Stimulation and Quantitative Analysis: Radiopharmaceutical: Tc-99m (technetium-99m) mebrofenin Dose: 5.5 mCi IV Additional Medications: Ensure Plus Dose: 8 ounces Reason for Consultation: Epigastric abdominal pain. Evaluation of gallbladder function. Following the intravenous administration of the above radiopharmaceutical, the liver, hepatobiliary tree, and abdomen were sequentially imaged through 60 minutes post tracer administration. Ensure Plus, 8 ounces, was then administered orally and images were obtained for an additional 60 minutes. The overall quality of this study appears good. There is no prior study for comparison. The initial tracer extraction from the blood pool by the liver appears prompt. The liver is overall normal in size with uniform tracer distribution throughout both lobes in the anterior projection. Visualization of the common bile duct, gallbladder and bowel all occur by 45 minutes. Tracer washout from the liver appears normal. At this time, the patient was administered 8 ounces of Ensure Plus. The gallbladder was then visualized for an additional 60 minutes. Quantitatively, 47% (normal > 33%) of the contents of the gallbladder was maximally ejected with the dose of Ensure Plus. Procedure Note Maxi Morataya MD - 06/11/2016 Hepatobiliary Imaging With Ensure Plus Stimulation and Quantitative Analysis: Radiopharmaceutical: Tc-99m (technetium-99m) mebrofenin Dose: 5.5 mCi IV Additional Medications: Ensure Plus Dose: 8 ounces Reason for Consultation: Epigastric abdominal pain. Evaluation of gallbladder function. Following the intravenous administration of the above radiopharmaceutical, the liver, hepatobiliary tree, and abdomen were sequentially imaged through 60 minutes post tracer administration. Ensure Plus, 8 ounces, was then administered orally and images were obtained for an additional 60 minutes. The overall quality of this study appears good. There is no prior study for comparison. The initial tracer extraction from the blood pool by the liver appears prompt. The liver is overall normal in size with uniform tracer distribution throughout both lobes in the anterior projection. Visualization of the common bile duct, gallbladder and bowel all occur by 45 minutes. Tracer washout from the liver appears normal. At this time, the patient was administered 8 ounces of Ensure Plus. The gallbladder was then visualized for an additional 60 minutes. Quantitatively, 47% (normal > 33%) of the contents of the gallbladder was maximally ejected with the dose of Ensure Plus. IMPRESSION Impression: Normal study. The cystic and common bile ducts do appear to be grossly patent. The patient's response to the Ensure Plus stimulation was normal. This laboratory has been accredited by the Intersocietal Commission for the Accreditation of Nuclear Medicine Laboratories (ICANL). Harlan Mane DO [facility] Final R esult documented in this encounter Visit Diagnoses Diagnosis Epigastric pain Abdominal pain, epigastric Nausea Nausea alone Gastroesophageal reflux disease without esophagitis Esophageal reflux Epigastric pain Abdominal pain, epigastric Nausea Nausea alone Gastroesophageal reflux disease without esophagitis Esophageal reflux documented in this encounter Care Teams Lease Attendant Relationship Specialty Start Date End Date Mark Lozano MD [address] [place] [phone] PCP - General Family Practice 12/01/18 documented as of this encounter
--- OUTSIDE RECORDS SUMMARY | 2025-04-10 19:58 | XMS_ITS | Encounter Summary ---
Author Organization [facility] Address [address] [place] [address] Care Team Providers Care Highwall Drill Operator Name Role Phone Mark Lozano MD Primary Care Provider [phone] Encounter Details Date Type Department Care Team (Latest Contact Info) Description 09/19/2003 Outpatient Historical [facility] Nella George MD NO ADDRESS ON FILE SURGERY FOLLOWUP, UNSPEC (Primary Dx) Social History Tobacco Use Types Packs/Day Years Used Date Smoking Tobacco: Never Assessed Comments Unknown Sex and Gender Information Value Date Recorded Sex Assigned at Not on file Legal Sex Female 4:56 AM MORTGAGE COLLECTOR Gender Identity Not on file Sexual Orientation Not on file documented as of this encounter Plan of Treatment Not on file documented as of this encounter Visit Diagnoses Diagnosis Follow-up examination, following unspecified surgery- Primary documented in this encounter Care Teams Highwall Drill Operator Relationship Specialty Start Date End Date Mark Loznao MD [address] [place] [phone] PCP - General Family Practice 12/01/18 documented as of this encounter
[2025-04-10 20:20] VITALS: BP 120/70; PULSE 112; RESP 15; TEMP 36.6; O2SAT 98; BMI 40.3
[2025-04-10 21:30] LABS: Hematocrit 40.0 % (36-47); Hemoglobin 13.20 g/dL (11.27-16.99); Mean Corpuscular HGB Conc 33.0 g/dL (30-55); Mean Corpuscular Hemoglobin 27.6 pg (27-33); Mean Corpuscular Volume 83.7 fl (85-98); Nucleated Red Blood Cells % 0 %; Platelet Count 451 10^3/cmm (157-399); Red Blood Count 4.78 10^6/uL (3.85-5.65); White Blood Count 12.60 10^3/uL (3.29-11.43)
[2025-04-10 21:54] LABS: Alanine Aminotransferase 48 U/L (0-33); Albumin Level 4.8 g/dL (3.5-5.2); Alkaline Phosphatase 74 U/L (35-105); Anion Gap 19.8 (5-19); Aspartate Amino Transferase 25 U/L (0-32); Blood Urea Nitrogen 10 mg/dL (6-20); Calcium 10.1 mg/dL (8.5-10.5); Carbon Dioxide 21 mmol/L (22-29); Chloride 101 mmol/L (98-107); Creatinine Clr Calc Pharmacy 114.2675; Globulin 3.8 g/dL (1.3-4.6); Glucose 100 mg/dL (65-115); Lipase 20 U/L (13-60); Osmolality Calculated 285 mOsm/kg (285-295); Potassium 3.8 mmol/L (3.5-5.1); Sodium 138 mmol/L (136-145); Total Protein 8.6 g/dL (6.6-8.7)
[2025-04-10] MEDS: ondansetron 2 mg/ML SDV 2 mL 4 MG IVP (22:56)
--- NOTE | 2025-04-10 23:02 | W.ED.ABDPA2 ---
HPI - Abdominal Pain General: Chief Complaint: Abdominal Pain Stated Complaint: abd pain, N/V/D Time Seen by Provider: 04/10/25 22:07 Source: patient Mode of arrival: ambulatory Limitations: no limitations History of Present Illness: Patient is a 30-year-old female who presents to ED today with GI complaints. She states approximately 3 days or so ago she began having stomach bug symptoms including nausea, vomiting, and diarrhea. She denies any episodes of hematemesis or bloody diarrhea. She does occasionally have some bright red blood in her stool from hemorrhoids. She states she has since developed intermittent abdominal pains. She feels like she cannot eat or drink and now feels weak. She has not been running fevers. No known poor food exposures or sick contacts. She is on a GLP-1 med. MD elicited complaint: abdominal pain Onset (ago): day(s) Pain Consistency: intermittent Location: Diffuse Severity: moderate Radiation: none Migration to: no migration Exacerbating factors: eating Relieving factors: nothing Associated Symptoms: Reports GI cramping, diarrhea, nausea and vomiting; Denies chills, dysuria, fever(s), hematochezia and melena Related Data Home Medications ?Medication ?Instructions ?Recorded ?Confirmed Probiotic-200mg inulin+ 40mg 1 tab PO DAILY 11/02/24 02/14/25 lactobacillus loratadine 10 mg tablet (Claritin) 10 mg PO DAILY 11/02/24 02/14/25 semaglutide 0.25 mg/0.05 mL mg SUBCUT 02/14/25 02/14/25 subcutaneous syringe Previous Rx's ?Medication ?Instructions ?Recorded drospirenone (contraceptive) 4 mg 4 mg PO DAILY #3 packets 11/02/24 (28) tablet (Slynd) labetalol 100 mg tablet 100 mg PO BID #60 tabs 02/14/25 famotidine 40 mg tablet (Pepcid) 40 mg PO DAILY #7 tabs 04/11/25 ondansetron 4 mg disintegrating 4 mg PO Q8H PRN nausea and 04/11/25 tablet vomiting #14 tabs pantoprazole 40 mg tablet,delayed 40 mg PO DAILY 2 weeks #14 tabs 04/11/25 release (Protonix) Allergies Allergy/AdvReac Type Severity Reaction Status Date / Time No Known Allergies Allergy Verified 04/10/25 20:28 Review of Systems Const: Reports: fatigue; Denies: fever(s), chills, body aches or malaise Card: Denies: chest pain Resp: Denies: dyspnea GI: Reports: abdominal pain, nausea, vomiting, diarrhea and GI cramping; Denies: hematochezia or melena : Denies: flank pain, difficulty voiding, dysuria, urinary frequency, urinary urgency or urinary hesitancy Musc: Denies: neck pain, back pain, extremity pain, extremity swelling, joint pain or joint swelling Skin/Breast: Denies: rash Neuro: Denies: headache(s), numbness in extremities, weakness in extremities, sensory changes or dizziness PFSH ED PFSH: Medical History Abnormal uterine bleeding (AUB) finally resolved with LEAH Infertility Migraine with aura Anxiety Takes hydroxyzine as needed. Managed by primary care provider Dr. Lozano. H/O cardiac arrhythmia Reports having PVCs and during this time had elevated blood pressure and was placed on metoprolol. This was being managed by primary care provider at that time Dr. Romero. She states that since 2018 in 2019 since anxiety and stress improved she has not had these symptoms. She is asymptomatic at this time but will have symptoms with elevated BP. Irritable bowel Diagnosed in 2015 with a colonoscopy--anxiety and stress make it worse. She is on probiotics for this. Started desipramine by her primary care provider in May 2020 as well No pertinent past medical history Denies diabetes, asthma, hypertension, seizures, DVT/PE PCP: Dr. 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 [facility] tonsillectomy and adenoidectomy As a child S/P appendectomy 2011--laparoscopic procedure Family History Family/Other Colon cancer maternal great grandmother-- dx age unknown Mother Thyroid disease Diabetes Grandmother Heart disease maternal and paternal Diabetes paternal Grandfather Diabetes maternal Denies family history of Ovarian cancer Hyperlipidemia Breast cancer Hypertension Uterine cancer Stroke Social History Smoking and tobacco/nicotine status: never used tobacco/nicotine Alcohol intake: never Substance/Drug Use: never Marital status: Education level details: Accounting Current occupation: Works at [email or web address] Physical Exam Const: COMMON NORMALS: no acute distress, patient oriented x3, no limitations, alert and well nourished GENERAL APPEARANCE: cooperative NUTRITIONAL APPEARANCE: obese morbidly obese (BMI 40.3) ORIENTATION/CONSCIOUSNESS: Yes awake, Yes oriented to person, Yes oriented to place and Yes oriented to time Resp: COMMON NORMALS: normal respiratory effort and clear to auscultation bilaterally AUSCULTATION: clear to auscultation bilaterally Cardio: COMMON NORMALS: regular rate and regular rhythm RATE: regular rate RHYTHM: regular rhythm GI: COMMON NORMALS: Normal to inspection, nondistended, normoactive bowel sounds present, Soft to palpation, No hepatosplenomegaly present and no masses INSPECTION: Yes normal to inspection AUSCULTATION: Yes normoactive bowel sounds PALPATION: Yes Soft to palpation, Yes Tenderness to palpation present (GI) (mainly throughout upper abdomen), No Guarding due to palpation present (GI), No Rigid due to palpation and Yes No hepatosplenomegaly present : COMMON NORMALS: Yes no CVA tenderness BLADDER/KIDNEY EXAM: Yes no CVA tenderness Back/Pelvis: COMMON NORMALS: no CVA tenderness Neuro: COMMON NORMALS: patient oriented x3 SENSORIUM/ORIENTATION: Yes alert, Yes oriented to person, Yes oriented to place and Yes oriented to time Course Vital Signs: Vital signs: Vital Signs Temperature 97.9 F 04/10/25 20:20 Pulse Rate 81 04/11/25 00:30 Respiratory Rate 18 04/11/25 00:00 Blood Pressure 121/70 04/11/25 00:30 Pulse Oximetry 99 04/11/25 00:30 Oxygen Delivery Me thod Room Air 04/10/25 20:20 MDM - Abdominal Pain Medical Decision Making Patient here for upper abdominal pain, nausea, vomiting, diarrhea. Vital signs are stable-slightly tachycardic upon arrival but is improved with fluids. Blood work overall is nonactionable. Electrolytes are stable. Scantly low bicarb and elevated gap consistent with probable dehydration. Lipase normal. Her UA is clear. CT scan showing no acute intra-abdominal process. She does have hepatic steatosis. Nonspecific colonic air-fluid levels which could be seen at a diarrheal state. Possible reactive lymphadenopathy. Most of her pain seems to be epigastric. Spoke about etiologies including gastritis, peptic ulcer disease, acid reflux/GERD, GI adverse reactions related to her GLP med, gastroenteritis, etc. Will place her on a PPI/H2 for the next 2 weeks. Spoke about dietary modification. Recommend f/u with primary care later this week. Return precautions discussed. Differential Diagnosis Likely abdominal pain, gastroenteritis and pancreatitis Medical Records I reviewed the patient's medical records. Lab Data I reviewed the patient's lab results. 04/10/25 21:18 04/10/25 21:18 Labs/Radiology: Radiology Impressions Abdomen/Pelvis CT 04/10/25 23:51 IMPRESSION: 1. No acute intra-abdominal process to explain the patient's symptoms. 2. Findings concerning for hepatic steatosis. Correlate with LFTs. 3. Nonspecific colonic air-fluid levels, which can be seen a diarrheal state. No acute inflammatory sequela to suggest colitis at time. 4. Borderline central mesenteric lymphadenopathy. Findings could be reactive. No primary etiology noted. Consider follow-up CT abdomen and pelvis in 1-3 months to document stability/resolution if patient remains symptomatic. COMMENTS: Consistent with the [employer]'s Incidental Findings Committee white paper (J Am Jose L Radiol 2018): Any incidental renal lesion less than 1 cm or classified as too small to characterize, or any incidental cystic renal lesion characterized as simple-appearing, is likely benign. No follow-up imaging is recommended for these lesions per consensus recommendations based on imaging criteria. Laboratory Results WBC 12.60 10^3/uL (3.29-11.43) H 04/10/25 21:18 RBC 4.78 10^6/uL (3.85-5.65) 04/10/25 21:18 Hgb 13.20 g/dL (11.27-16.99) 04/10/25 21:18 Hct 40.0 % (36-47) 04/10/25 21:18 MCV 83.7 fl (85-98) L 04/10/25 21:18 MCH 27.6 pg (27-33) 04/10/25 21:18 MCHC 33.0 g/dL (30-55) 09/15/25 21:18 RDW 12.9 % (12.1-15.1) 04/10/25 21:18 Plt Count 451 10^3/cmm (157-399) H 04/10/25 21:18 MPV 9.1 fL (7.4-10.4) 04/10/25 21:18 Neut % (Auto) 69.0 % 04/10/25 21:18 Lymph % (Auto) 23.7 % 04/10/25 21:18 [place] % (Auto) 4.8 % 04/10/25 21:18 Eos % (Auto) 1.8 % 04/10/25 21:18 Baso % (Auto) 0.2 % 04/10/25 21:18 Neut # (Auto) 8.70 10^3/uL (1.8-7.7) H 04/10/25 21:18 Lymph # (Auto) 3.0 10^3/uL (0.8-4.8) 04/10/25 21:18 [place] # (Auto) 0.6 10^3/uL (0.2-0.9) 04/10/25 21:18 Eos # (Auto) 0.2 10^3/uL (0.0-0.8) 04/10/25 21:18 Baso # (Auto) 0.0 10^3/uL (0.0-0.1) 04/10/25 21:18 Nucleated RBC % (auto) 0 % 04/10/25 21:18 Nucleated RBCs # 0.0 /100WBC 04/10/25 21:18 Sodium 138 mmol/L (136-145) 04/10/25 21:18 Potassium 3.8 mmol/L (3.5-5.1) 04/10/25 21:18 Chloride 101 mmol/L (98-107) 04/10/25 21:18 Carbon Dioxide 21 mmol/L (22-29) L 04/10/25 21:18 Anion Gap 19.8 (5-19) H 04/10/25 21:18 BUN 10 mg/dL (6-20) 04/10/25 21:18 Creatinine 1.0 mg/dL (0.5-0.9) H 04/10/25 21:18 GFR Calculation 66.0 mL/min (90-130) L 04/10/25 21:18 Glucose 100 mg/dL (65-115) 04/10/25 21:18 Calculated Osmolality 285 mOsm/kg (285-295) 04/10/25 21:18 Calcium 10.1 mg/dL (8.5-10.5) 04/10/25 21:18 Total Bilirubin 0.4 mg/dL (0.15-1.2) 04/10/25 21:18 AST 25 U/L (0-32) 04/10/25 21:18 ALT 48 U/L (0-33) H 04/10/25 21:18 Alkaline Phosphatase 74 U/L (35-105) 04/10/25 21:18 C-Reactive Protein 4.9 mg/L (0.0-4.9) 04/10/25 21:18 Total Protein 8.6 g/dL (6.6-8.7) 04/10/25 21:18 Albumin 4.8 g/dL (3.5-5.2) 04/10/25 21:18 Globulin 3.8 g/dL (1.3-4.6) 04/10/25 21:18 Lipase 20 U/L (13-60) 04/10/25 21:18 HCG, Qual Negative (Negative) 04/10/25 22:52 Urine Color Yellow (Yellow) 04/10/25 22:52 Urine Appearance Cloudy (CLEAR) A 04/10/25 22:52 Urine pH 5.5 (5-7) 04/10/25 22:52 Ur Specific [place] 1.026 (1.005-1.030) 04/10/25 22:52 Urine Protein Trace (Negative) A 04/10/25 22:52 Urine Glucose (UA) Negative (Normal) 04/10/25 22:52 Urine Ketones Trace (Negative) 04/10/25 22:52 Urine Blood Negative (Negative) 04/10/25 22:52 Urine Nitrate Negative (Negative) 04/10/25 22:52 Urine Bilirubin Negative (Negative) 04/10/25 22:52 Urine Urobilinogen 1.0 mg/dL (Negative) 04/10/25 22:52 Ur Leukocyte Esterase Negative (Negative) 04/10/25 22:52 Urine RBC 0-2 /hpf (0-2) 04/10/25 22:52 Urine WBC 0-5 /hpf (0-5) 04/10/25 22:52 Ur Squamous Epith Cells 6-10 /hpf (0-5) 04/10/25 22:52 Amorphous Sediment Not Reportable 04/10/25 22:52 Urine Bacteria Trace /hpf (NONE) 04/10/25 22:52 Hyaline Casts 1.21 /lpf 04/10/25 22:52 All radiology interpretation(s) finalized by discharge Discharge Plan Discharge Patient Disposition: Home Clinical Impression: Acute epigastric pain Condition: Stable Prescriptions: New pantoprazole [Protonix] 40 mg tablet,delayed release (DR/EC) 40 mg PO DAILY 14 Days Qty: 14 0RF famotidine [Pepcid] 40 mg tablet 40 mg PO DAILY Qty: 7 0RF ondansetron 4 mg tablet,disintegrating 4 mg PO Q8H PRN (Reason: nausea and vomiting) Qty: 14 0RF No Action loratadine [Claritin] 10 mg tablet 10 mg PO DAILY Slynd 4 mg (28) tablet 4 mg PO DAILY Qty: 3 3RF semaglutide 0.25 mg/0.05 mL syringe SUBCUT labetalol 100 mg tablet 100 mg PO BID Qty: 60 3RF Probiotic-200mg inulin+ 40mg lactobacillus 240 mg capsule 1 tab PO DAILY Discharge Orders: Discharge ED (Routine); Ordered 04/11/25 Ordered By: Sol Brand Referrals: Mark Lozano MD [Primary Care Provider, Family Practice] Patient Instructions: Abdominal Pain (ED), Patient Portal & Justin Instructions Activity Restrictions/Additional Instructions: As we discussed, I would recommend a bland diet over the next 24 to 48 hours and slowly advance as tolerated. You may take the prescription medications to help with stomach discomfort. Please follow-up with primary care later this week for re-evaluation. You may return to the emergency department for worsening abdominal pain, bloody vomit, worsening diarrhea, fevers, generally feeling worse or unwell, or any other concerns you may have. Print Language: Swiss Coding Level of Care Code ED [employer] for Belgica Rahman
[2025-04-10 23:05] LABS: Glucose Urine UA Negative (Normal); Nitrate Urine Negative (Negative); Specific Gravity, Urine 1.026 (1.005-1.030)
[2025-04-10] MEDS: lidocaine 2% viscous 15 ML, aluminum-mag hydrox-simethicon 30 ML, sucralfate oral liq 1 GM PO (23:08)
[2025-04-10 23:12] LABS: HCG Qualitative Urine. Negative (Negative)
--- NOTE | 2025-04-10 23:51 | CTR_ITS ---
PROCEDURE INFORMATION: Exam: CT Abdomen And Pelvis With Contrast Exam date and time: 04/11/2025 12:15 AM Age: 30 years old Clinical indication: Abdominal pain; Prior surgery; Surgery date: 6+ months; Surgery type: Appy, gus; Additional info: Abdominal pain, n/v/d TECHNIQUE: Imaging protocol: Computed tomography of the abdomen and pelvis with contrast. Radiation optimization: All CT scans at this facility use at least one of these dose optimization techniques: automated exposure control; mA and/or kV adjustment per patient size (includes targeted exams where dose is matched to clinical indication); or iterative reconstruction. Contrast material: OMNI 350; Contrast volume: 100 ml; Contrast route: INTRAVENOUS (IV); COMPARISON: US OB BPP wo NST [id number] 03/14/2024 12:07 PM RADIATION DOSE METRICS: Total DLP (mGy-cm): 1216.43 FINDINGS: Liver: Mild diffuse hepatic hypoattenuation favors a component of steatosis. The liver is otherwise within normal limits. Gallbladder and biliary ducts: The gallbladder is surgically absent. Pancreas: Normal. No ductal dilation. Spleen: Normal. No splenomegaly. Adrenal glands: Normal. No mass. Kidneys and ureters: Simple bilateral renal cysts are present (Bosniak 1). No follow-up required. Stomach and bowel: Nonspecific air-fluid levels within the colon. Appendix: There has been an appendectomy. Intraperitoneal space: Unremarkable. No free air. No significant fluid collection. Vasculature: Unremarkable. No abdominal aortic aneurysm. Lymph nodes: 10 mm pericardiophrenic lymph node (series 3, image 11). Central mesenteric lymph nodes are prominent/minimally enlarged measuring up to 10 mm short axis (series 3, image 44 for reference). Urinary bladder: Unremarkable as visualized. Reproductive: Unremarkable as visualized. Bones/joints: Unremarkable. No acute fracture. Soft tissues: Unremarkable. CT/CT abdomen pelvis w con* [id number] IMPRESSION: 1. No acute intra-abdominal process to explain the patient's symptoms. 2. Findings concerning for hepatic steatosis. Correlate with LFTs. 3. Nonspecific colonic air-fluid levels, which can be seen a diarrheal state. No acute inflammatory sequela to suggest colitis at time. 4. Borderline central mesenteric lymphadenopathy. Findings could be reactive. No primary etiology noted. Consider follow-up CT abdomen and pelvis in 1-3 months to document stability/resolution if patient remains symptomatic. COMMENTS: Consistent with the [employer] [employer]'s Incidental Findings Committee white paper (J Am Jose L Radiol 2018): Any incidental renal lesion less than 1 cm or classified as too small to characterize, or any incidental cystic renal lesion characterized as simple-appearing, is likely benign. No follow-up imaging is recommended for these lesions per consensus recommendations based on imaging criteria.
[2025-04-10 23:58] VITALS: BP 121/70; PULSE 88; O2SAT 99
[2025-04-11] VITALS: RESP 18; O2SAT 98
[2025-04-11] MEDS: morphine 4 mg/mL SDV 1 mL IVP
[2025-04-11] MEDS: iohexol 350 mg/mL 500 mL Btl (per mL) IV (00:27)
[2025-04-11 00:30] VITALS: BP 121/70; PULSE 81; O2SAT 99
[2025-04-11] MEDS: HYDROcodone-acetaminophen 5-325 mg Tablet 1 TAB PO (01:37)
[2025-04-11 01:46] VITALS: BP 127/70; PULSE 90; O2SAT 98
== END 2025-04-11 01:45 | disposition home or self-care (01) ==
PROVIDERS: Emergency Medicine; Emergency Provider Physician Assistant; PCP Family Medicine
DX: R10.13 Epigastric pain (principal)
CPT/HCPCS: 36415; 74177; 80053; 81001; 81025; 83690; 85025; 86140; 96374; 96375; 99285; J2270; J2405; J7030; J9999

== ENCOUNTER → 2025-07-12 15:44 | Outpatient (BNVA) | payer OTHER, SELFPAY | PROVIDERS: PCP Family Medicine; Visit Provider Nurse Practitioner Women's Health | DX: N92.6 Irregular menstruation, unspecified (principal); R68.82 Decreased libido; I10 Essential (primary) hypertension; R53.83 Other fatigue; E28.2 Polycystic ovarian syndrome | CPT/HCPCS: 82306; 82728; 83540; 85025; 88175 ==